=== PATIENT | female | born 1950 | race Caucasian/White ===

== ENCOUNTER 2016-10-08 07:59 | Emergency (ER) | payer OTHER ==
[2016-10-08] MEDS ORDERED: DUONEB 0.5-3 MG/3 ml Neb IH ONE ×2 (08:19→08:26)
--- NOTE | 2016-10-08 08:25 | ERPHSYRPT ---
- History of Present Illness Time Seen by Provider: 10/08/16 08:14 Source: patient Exam Limitations: no limitations Patient Subjective Stated Complaint: cough productive , wheezes,sob for 2 days , co pain to right side of chest when coughs, started advair 2-3 days ago, Triage Nursing Assessment: pt alert , sob with excertion, skin w/d, wheezes heard, no edema noted. Physician History: 66-year-old white female arrives with complaint of shortness of breath coughing pain and right-sided chest with deep breathing symptoms for 2 days no fevers no vomiting no diarrhea. Past medical history includes COPD, pneumonia, arthritis. Past surgical history includes , appendectomy, hand surgery. Social history positive for tobacco use Timing/Duration: yesterday Activities at Onset: none Severity of Dyspnea-Max: moderate Severity of Dyspnea-Current: moderate Possible Cause: occasional episodes Modifying Factors: Improves With: nothing Associated Symptoms: cough, chest pain/discomfort (pain with deep breathing and coughing), wheezing, painful breathing (past), productive cough, No intermittent , No anxiety, No edema, No fever, No insomnia, No loss of appetite, No lightheadedness, No weakness, No ankle swelling, No chills, No hemoptysis, No calf pain, No dizziness, No heaviness, No heart racing, No lightheadedness, No leg swelling, No muscle spasms feet, No muscle spasms hands, No sweating, No tightness, No tingling face, No tingling hands International travel in last 2 weeks: No Allergies/Adverse Reactions: No Known Drug Allergies Allergy (Unverified 10/08/16 08:11) Home Medications: Albuterol 2.5 mg/3 ml Neb [Proventil 2.5 mg/3 ml Neb] 2.5 mg QID 10/08/16 [History] Albuterol Sulfate [Proair Hfa] 8.5 gm DAILY 10/08/16 [History] Hx Influenza Vaccination/Date Given: Yes Hx Pneumococcal Vaccination/Date Given: No Immunizations Up to Date: Yes - Review of Systems Constitutional: No Fever, No Chills Eyes: No Symptoms Ears, Nose, & Throat: No Symptoms Respiratory: Cough, Dyspnea, Wheezing Cardiac: Chest Pain (pain with deep breathing right side pain with cough) Abdominal/Gastrointestinal: No Abdominal Pain, No Nausea, No Vomiting, No Diarrhea Genitourinary Symptoms: No Dysuria Musculoskeletal: No Back Pain, No Neck Pain Skin: No Rash Neurological: No Dizziness, No Focal Weakness, No Sensory Changes Psychological: No Symptoms Endocrine: No Symptoms All Other Systems: Reviewed and Negative - Past Medical History Neurological History: No Pertinent History Cardiac History: No Pertinent History Respiratory History: COPD, Pneumonia Endocrine Medical History: No Pertinent History Musculoskeletal History: Arthritis - Past Surgical History Past Surgical History: Yes Gastrointestinal: Appendectomy Musculoskeletal: Orthopedic Surgery Female Surgical History: Section Other Surgical History: hand surg - Social History Smoking Status: Current every day smoker Exposure to second hand smoke: Yes Drug Use: none Patient Lives Alone: No - Female History Hx Last Menstrual Period: post - Nursing Vital Signs Nursing Vital Signs: Initial Vital Signs Temperature 98.0 F Pulse Rate 108 Respiratory Rate 16 Blood Pressure [] 152/71 Pain Intensity 7 - Physical Exam General Appearance: mild distress Eye Exam: PERRL/EOMI Ears, Nose, Throat Exam: hearing grossly normal, normal ENT inspection, normal pharynx, No abnormal TM (R), No abnormal TM (L), No sinus pain/drainage, No hearing decreased, No nasal congestion, No pharyngeal erythema, No tonsillar exudate, No tonsillar swelling Neck Exam: normal inspection, non-tender, supple Respiratory Exam: lungs clear, airway intact, wheezing, No respiratory distress Cardiovascular/Chest Exam: normal heart sounds, tachycardia Abdominal/Gastrointestinal Exam: soft, No tenderness, No distention, No mass Extremity Exam: non-tender, normal range of motion, normal inspection, no calf tenderness, no pedal edema Peripheral Pulses Exam: dorsalis-pedis (R): 2+, dorsalis-pedis (L): 2+ Neurologic Exam: alert, oriented x 3, cooperative, certified pharmacist assistant II-XII nml as tested, sensation nml, No motor deficits Skin Exam: normal color, warm, No dry SpO2 Interpretation: normal (95%) SpO2: 95 Oxygen Delivery: Room Air - Course Nursing assessment & vital signs reviewed: Yes EKG Interpreted by Me: RATE (100 bpm), Sinus Rhythm, NORMAL AXIS, Other (EKG: Sinus rhythm 100 bpm normal axis no acute ST or T wave changes noted) - Radiology Exams Chest X-ray Interpretation: Discussed w/ radiologist, Other (chest x-ray: Right infrahilar infiltrate/atelectasis correlate clinically) Ordered Tests: Active Orders 24 hr Category Date Time Status Fire Marshal STAT Care 10/08/16 08:19 Active EKG-ER Only STAT Care 10/08/16 08:19 Active IV Insertion STAT Care 10/08/16 08:19 Active CHEST 1 VIEW (PORTABLE) Stat Exams 10/08/16 08:20 Completed CBC W DIFF Stat Lab 10/08/16 08:20 Completed CMP Stat Lab 10/08/16 08:20 Completed D-DIMER QUANTITATION Stat Lab 10/08/16 08:20 Completed TROPONIN Stat Lab 10/08/16 08:20 Completed Respiratory Nebulizer STAT RT 10/08/16 08:21 Completed Medication Summary Discontinued Medications Generic Name Dose Route Start Last Admin Trade Name Freq PRN Reason Stop Dose Admin Albuterol/Ipratropium 3 ml 10/08/16 08:19 10/08/16 08:27 Duoneb 0.5-3 Mg/3 Ml Neb IH 10/08/16 08:20 3 ml STAT ONE Administration Albuterol/Ipratropium Confirm 10/08/16 08:26 Duoneb 0.5-3 Mg/3 Ml Neb Administered 10/08/16 08:27 Dose 3 ml IH .STK-MED ONE Lab/Rad Data: Laboratory Result Diagrams 10/08/16 08:20 10/08/16 08:20 Laboratory Results 10/08/16 10/08/16 10/08/16 Range/Units 08:20 08:20 08:20 WBC 16.5 H (4.0-10.5) K/mm3 RBC 4.22 (4.1-5.4) M/mm3 Hgb 12.6 (12.0-16.0) gm/dl Hct 39.9 (35-47) % MCV 94.5 (78-100) fl MCH 29.9 (26-32) pg MCHC 31.6 L (32-36) g/dl RDW 13.5 (11.5-14.0) % Plt Count 345 (150-450) K/mm3 MPV 10.3 H (6-9.5) fl Gran % 83.2 H (36.0-66.0) % Lymphocytes % 9.0 L (24.0-44.0) % Monocytes % 7.1 (0.0-12.0) % Eosinophils % 0.4 (0.00-5.0) % Basophils % 0.3 (0.0-0.4) % Basophils # 0.05 (0-0.4) D-Dimer 0.484 (0.00-0.49) mg/L Sodium 140 (136-145) mEq/L Potassium 4.3 (3.5-5.1) mEq/L Chloride 102 (98-107) mEq/L Carbon Dioxide 29.1 (21-32) mEq/L Anion Gap 13.6 (5-15) MEQ/L BUN 12 (9-20) mg/dL Creatinine 0.77 (0.55-1.30) mg/dl Estimated GFR > 60 ML/MIN Glucose 97 (70-110) MG/DL Calcium 9.4 (8.5-10.1) mg/dL Total Bilirubin 0.4 (0.2-1.0) mg/dL AST 15 (15-37) U/L ALT 15 (12-78) U/L Alkaline Phosphatase 95 (46-116) U/L Troponin I < 0.017 (0.000-0.056) ng/ml Serum Total Protein 7.9 (6.4-8.2) gm/dL Albumin 3.8 (3.4-5.0) g/dL - Progress Progress: improved Air Movement: fair Progress Note: 10/08/16 09:41 Patient's lungs are clear after DuoNeb treatment she is feeling better. She does state that she has inhalers at home and a nebulizer she is encouraged to use these. Chest x-ray shows a subtle asymmetric right infrahilar infiltrate versus atelectasis without consolidation or a large effusion. Patient states she will not take steroids and although I offered to write them she states she will not take them and asked me not to write for them. She does state that she feels like her symptoms are secondary to Advair she states she was told by Dr. Lopez not to take this, Will write for Zithromax Z-Gonzalo, Will have patient continue her inhalers at home, Have patient follow-up with Dr. Lopez, Patient's EKG d-dimer troponin CMP within normal limits white count is mildly elevated. - Departure Time of Disposition: 09:42 Departure Disposition: Home Clinical Impression: COPD (chronic obstructive pulmonary disease) Qualifiers: COPD type: COPD with acute exacerbation Qualified Code(s): J44.1 - Chronic obstructive pulmonary disease with (acute) exacerbation Pneumonia Qualifiers: Pneumonia type: due to unspecified organism Laterality: right Lung location: unspecified part of lung Qualified Code(s): J18.9 - Pneumonia, unspecified organism Condition: Fair Critical Care Time: No Instructions: Chronic Obstructive Pulmonary Disease Additional Instructions: Return home. Plenty of fluids. Zithromax Z-GONZALO as directed. Use your inhalers as directed. Follow-up with Dr. Lopez or Dr. raven Soto. Stop smoking. Return for acute distress or for severe symptoms. Prescriptions: Azithromycin 250 mg [Zithromax 250 MG TABLET] 0 mg PO ZPACK #6 tablet
[2016-10-08 08:41] LABS: BASOPHIL % 0.3 % (0.0-0.4); Eosinophil % 0.4 % (0.00-5.0); Granulocytes % 83.2 % (36.0-66.0); Mean Cell Volume 94.5 fl (78-100); Mean Corpuscular Hemoglobin 29.9 pg (26-32); Mean Platelet Volume 10.3 fl (6-9.5); Monocytes % 7.1 % (0.0-12.0); Platelet Count 345 K/mm3 (150-450); Red Blood Count 4.22 M/mm3 (4.1-5.4); Red Cell Distribution Width 13.5 % (11.5-14.0); White Blood Count 16.5 K/mm3 (4.0-10.5)
--- NOTE | 2016-10-08 08:47 | XRAY ---
Indication: Short of breath. Comparison: None Portable chest demonstrates subtle asymmetric right infrahilar infiltrate versus atelectasis without consolidation or large effusion. A few calcified granulomas. Heart is not enlarged. Bony thorax intact. Impression: Right infrahilar infiltrate/atelectasis. Correlate clinically.
[2016-10-08 08:53] LABS: ALBUMIN 3.8 g/dL (3.4-5.0); ALKALINE PHOSPHATASE 95 U/L (46-116); ANION GAP 13.6 MEQ/L (5-15); BILIRUBIN,TOTAL 0.4 mg/dL (0.2-1.0); BLOOD UREA NITROGEN 12 mg/dL (9-20); CHLORIDE 102 mEq/L (98-107); Carbon Dioxide 29.1 mEq/L (21-32); Glucose 97 MG/DL (70-110); Potassium 4.3 mEq/L (3.5-5.1); SGOT/AST 15 U/L (15-37); SGPT/ALT 15 U/L (12-78); SODIUM 140 mEq/L (136-145); TROPONIN < 0.017 ng/ml (0.000-0.056); Total Protein 7.9 gm/dL (6.4-8.2)
[2016-10-08 09:52] VITALS: BP 135/49; PULSE 75; O2SAT 94
== END 2016-10-08 09:51 | disposition home or self-care (01) ==
LOC: ED 07:59
DX: J44.1 Chronic obstructive pulmonary disease with (acute) exacerbation (principal); J18.9 Pneumonia, unspecified organism; R06.02 Shortness of breath; R05 Cough; R06.00 Dyspnea, unspecified; R06.2 Wheezing; R07.89 Other chest pain; Z87.01 Personal history of pneumonia (recurrent)
CPT/HCPCS: 36000; 36415; 71010; 80053; 84484; 85025; 85379; 93005; 93041; 94640; 99283; 99284

== ENCOUNTER 2017-03-08 08:15 | Observation (INO) | payer OTHER ==
[2017-03-08] MEDS ORDERED: DUONEB 0.5-3 MG/3 ml Neb IH ONE ×2 (08:41→09:06)
--- NOTE | 2017-03-08 08:48 | ERPHSYRPT ---
- History of Present Illness Time Seen by Provider: 03/08/17 08:39 Source: patient Exam Limitations: no limitations Patient Subjective Stated Complaint: PT STATES SHE HAS BEEN SOB FOR THE PAST 4 DAYS. WORSE LAST PM. Triage Nursing Assessment: PT, PINK, WARM, DRY. LUNG SOUNDS DIMINISHED IN RIGHT UPPER LOBE, WHEEZING NOTED THROUGHOUT. NON PRODUCTIVE COUGH. Physician History: 67-year-old white female with history of COPD pneumonia and arthritis Patient arrives with complaint of cough which is been nonproductive short of breath symptoms for 3 days she states she has had some chills and had some sweating at home Patient states she has been using her nebulizer Patient states she does not want to take steroids to make her swell up and make her nauseous she states that she has refused them in the past and continues to refuse these making this clear. Past medical history includes COPD, pneumonia, arthritis Past surgical history includes , appendectomy, hand surgery Social history positive for tobacco use Timing/Duration: day(s) (4 days) Activities at Onset: none Severity of Dyspnea-Max: moderate Severity of Dyspnea-Current: moderate Possible Cause: frequent episodes Modifying Factors: Improves With: nothing Associated Symptoms: constant, cough, wheezing, chills, No chest pain/discomfort , No edema, No fever, No insomnia, No loss of appetite, No lightheadedness, No weakness, No ankle swelling, No hemoptysis, No calf pain, No dizziness, No heaviness, No heart racing, No lightheadedness, No leg swelling, No muscle spasms feet, No muscle spasms hands, No painful breathing, No productive cough, No sweating, No tightness, No tingling face, No tingling hands International travel in last 2 weeks: No Allergies/Adverse Reactions: No Known Drug Allergies Allergy (Unverified 03/08/17 08:22) Home Medications: Albuterol 2.5 mg/3 ml Neb [Proventil 2.5 mg/3 ml Neb] 2.5 mg QID 10/08/16 [History] Albuterol Sulfate [Proair Hfa] 8.5 gm DAILY 10/08/16 [History] Hx Tetanus, Diphtheria Vaccination/Date Given: Yes (UNKNOWN) Hx Influenza Vaccination/Date Given: Yes Hx Pneumococcal Vaccination/Date Given: No Immunizations Up to Date: Yes - Review of Systems Constitutional: Chills, No Fever, No Fatigue, No Lethargy, No Malaise, No Night Sweats, No Weakness, No Weight Loss Eyes: No Symptoms Ears, Nose, & Throat: No Symptoms, No Ear Pain, No Ear Discharge, No Hearing Changes, No Tinnitus, No Nose Pain, No Nose Congestion, No Nose Discharge, No Sinus Drainage, No Epistaxis, No Mouth Pain, No Mouth Swelling, No Loose Teeth, No Throat Pain, No Throat Swelling, No Painful Swallowing, No Snoring, No Stridor Respiratory: Cough, Dyspnea, Dyspnea on Exertion ([place]), Wheezing, No Cyanosis, No Stridor Cardiac: No Chest Pain, No Edema, No Syncope Abdominal/Gastrointestinal: No Abdominal Pain, No Nausea, No Vomiting, No Diarrhea Genitourinary Symptoms: No Dysuria Musculoskeletal: No Back Pain, No Neck Pain Skin: No Rash Neurological: No Dizziness, No Focal Weakness, No Sensory Changes Psychological: No Symptoms Endocrine: No Symptoms All Other Systems: Reviewed and Negative - Past Medical History Pertinent Past Medical History: Yes Neurological History: No Pertinent History Cardiac History: No Pertinent History Respiratory History: COPD, Pneumonia Endocrine Medical History: No Pertinent History Musculoskeletal History: Arthritis - Past Surgical History Past Surgical History: Yes Gastrointestinal: Appendectomy Musculoskeletal: Orthopedic Surgery Female Surgical History: Section Other Surgical History: hand surg - Social History Smoking Status: Current every day smoker How long have you smoked: 55 Exposure to second hand smoke: No Drug Use: none Patient Lives Alone: No - Nursing Vital Signs Nursing Vital Signs: Initial Vital Signs Temperature 98.6 F 03/08/17 08:16 Pulse Rate 115 H 03/08/17 08:16 Respiratory Rate 26 H 03/08/17 08:16 Blood Pressure 130/72 03/08/17 08:16 O2 Sat by Pulse Oximetry 92 L 03/08/17 08:16 Pain Scale Pain Intensity 5 - Physical Exam General Appearance: other (well-developed well-nourished white female, alert oriented 3, cooperative to examination, begins to cough when asked to take a deep breath) Eye Exam: PERRL/EOMI, eyes nml inspection, other (fundi are unremarkable) Ears, Nose, Throat Exam: hearing grossly normal, normal ENT inspection, normal pharynx, No abnormal TM (R), No abnormal TM (L), No sinus pain/drainage, No hearing decreased, No nasal congestion, No pharyngeal erythema, No tonsillar exudate Neck Exam: normal inspection, non-tender, supple, full range of motion Respiratory Exam: wheezing (bilateral wheezes, breath sounds equal bilaterally) Cardiovascular/Chest Exam: normal heart sounds, regular rate/rhythm, tachycardia (heart regular but tachycardic) Abdominal/Gastrointestinal Exam: soft, No tenderness, No distention, No mass Extremity Exam: non-tender, normal range of motion, normal inspection, no calf tenderness, no pedal edema Peripheral Pulses Exam: dorsalis-pedis (R): 2+, dorsalis-pedis (L): 2+ Neurologic Exam: alert, oriented x 3, cooperative, wall taper II-XII nml as tested, sensation nml, No motor deficits Skin Exam: normal color, warm, No dry SpO2 Interpretation: normal (92%) SpO2: 92 Oxygen Delivery: Room Air - Course Nursing assessment & vital signs reviewed: Yes EKG Interpreted by Me: RATE (EKG, sinus tachycardia, 1 10 bpm, normal axis, no acute ST or T wave changes noted, compared to October 08, 2016) - Radiology Exams Chest X-ray Interpretation: Discussed w/ radiologist (chest x-ray:Hyperinflated with Right Mid to lower lung alveolar opacity remainder of heart-lung and bony thorax unremarkable.) Ordered Tests: Active Orders 24 hr Category Date Time Status Dining Room Hostess STAT Care 03/08/17 08:39 Active Clean Catch Urine Specimen STAT Care 03/08/17 08:39 Active EKG-ER Only STAT Care 03/08/17 08:39 Active IV Insertion STAT Care 03/08/17 08:48 Active Oxygen-ED Only NASAL CANNULA 2 lpm Care 03/08/17 08:49 Active Pulse Oximetry (ED) STAT Care 03/08/17 08:39 Active Saline Lock STAT Care 03/08/17 08:39 Active CHEST 1 VIEW (PORTABLE) Stat Exams 03/08/17 08:41 Completed BLOOD CULTURE Stat Lab 03/08/17 09:05 Received CBC W DIFF Stat Lab 03/08/17 08:40 Completed CMP Stat Lab 03/08/17 08:40 Completed CULTURE,URINE Stat Lab 03/08/17 08:39 Ordered Lactic Acid Stat Lab 03/08/17 09:15 Completed PROTIME WITH INR Stat Lab 03/08/17 08:40 Completed PTT Stat Lab 03/08/17 08:40 Completed UA W/ MICROSCOPIC Stat Lab 03/08/17 09:02 Completed VENOUS BLOOD GAS Stat Lab 03/08/17 09:15 Completed Respiratory Nebulizer STAT RT 03/08/17 08:41 Active Medication Summary Generic Name Dose Route Start Last Admin Trade Name Yeyo PRN Reason Stop Dose Admin Ceftriaxone Sodium/Dextrose 1 g in 50 mls @ 100 mls/hr 03/08/17 09:11 09:17 Rocephin 1 Gm-D5w 50 Ml Bag IV 03/08/17 09:40 100 mls/hr STAT STA Administration Discontinued Medications Generic Name Dose Route Start Last Admin Trade Name Freq PRN Reason Stop Dose Admin Albuterol/Ipratropium 3 ml 03/08/17 08:41 03/08/17 09:15 Duoneb 0.5-3 Mg/3 Ml Neb IH 03/08/17 08:42 3 ml STAT ONE Administration Albuterol/Ipratropium Confirm 03/08/17 09:06 Duoneb 0.5-3 Mg/3 Ml Neb Administered 03/08/17 09:07 Dose 3 ml IH .STK-MED ONE Budesonide 0.5 mg 03/08/17 09:15 03/08/17 09:19 Pulmicort Nebule IH 03/08/17 09:16 0.5 mg STAT ONE Administration Ceftriaxone Sodium/Dextrose Confirm 03/08/17 09:16 Rocephin 1 Gm-D5w 50 Ml Bag Administered 03/08/17 09:17 Dose 1 g in 50 mls @ ud IV .STK-MED ONE Lab/Rad Data: Laboratory Result Diagrams 03/08/17 08:40 03/08/17 08:40 Laboratory Results 03/08/17 03/08/17 03/08/17 Range/Units 09:15 09:15 09:02 WBC (4.0-10.5) K/mm3 RBC (4.1-5.4) M/mm3 Hgb (12.0-16.0) gm/dl Hct (35-47) % MCV (78-100) fl MCH (26-32) pg MCHC (32-36) g/dl RDW (11.5-14.0) % Plt Count (150-450) K/mm3 MPV (6-9.5) fl Gran % (36.0-66.0) % Lymphocytes % (24.0-44.0) % Monocytes % (0.0-12.0) % Eosinophils % (0.00-5.0) % Basophils % (0.0-0.4) % Basophils # (0-0.4) INR (0.8-3.0) APTT (25.3-37.0) SECONDS VBG pH 7.41 (7.32-7.42) VBG pCO2 at Pat Temp 45 (42-55) mm/Hg VBG pO2 at Pat Temp 39 (25-40) mm/Hg VBG HCO3 28.5 H (22-28) meq/L VBG O2 Sat (Vee) 81.2 L (95-100) VBG Base Excess 3.2 H (-2.0-2.0) VBG Hemoglobin 13.5 VBG Carboxyhemoglobin 4.8 (0.0-6.9) % T HGB POC Potassium 4.2 (3.5-5.1) Sodium (136-145) mEq/L Potassium (3.5-5.1) mEq/L Chloride (98-107) mEq/L Carbon Dioxide (21-32) mEq/L Anion Gap (5-15) MEQ/L BUN (9-20) mg/dL Creatinine (0.55-1.30) mg/dl Estimated GFR ML/MIN Glucose (70-110) MG/DL Lactic Acid 0.8 (0.4-2.0) Calcium (8.5-10.1) mg/dL Total Bilirubin (0.2-1.0) mg/dL AST (15-37) U/L ALT (12-78) U/L Alkaline Phosphatase (46-116) U/L Serum Total Protein (6.4-8.2) gm/dL Albumin (3.4-5.0) g/dL Ur Collection Type CCMS Urine Color DARK YELLOW (YELLOW) Urine Appearance HAZY (CLEAR) Urine pH 5.0 (5-6) Ur Specific Myton 1.020 (1.005-1.025) Urine Protein 30 (Negative) Urine Ketones TRACE (NEGATIVE) Urine Blood 250 (0-5) Francis/ul Urine Nitrite NEGATIVE (NEGATIVE) Urine Bilirubin SMALL (NEGATIVE) Urine Urobilinogen 1 (0-1) mg/dL Ur Leukocyte Esterase NEGATIVE (NEGATIVE) Urine Microscopic RBC 2-5 (0-2) /HPF Urine Microscopic WBC 0-2 (0-5) /HPF Ur Epithelial Cells MANY (FEW) /HPF Urine Bacteria MODERATE (NEGATIVE) /HPF Urine Mucus MANY (NEGATIVE) /HPF Urine Glucose NEGATIVE (NEGATIVE) mg/dL Specimen Received 03/08/2017 0850 03/08/17 03/08/17 03/08/17 Range/Units 08:40 08:40 08:40 WBC 12.6 H (4.0-10.5) K/mm3 RBC 4.20 (4.1-5.4) M/mm3 Hgb 12.7 (12.0-16.0) gm/dl Hct 39.8 (35-47) % MCV 94.8 (78-100) fl MCH 30.2 (26-32) pg MCHC 31.9 L (32-36) g/dl RDW 13.8 (11.5-14.0) % Plt Count 345 (150-450) K/mm3 MPV 10.5 H (6-9.5) fl Gran % 76.5 H (36.0-66.0) % Lymphocytes % 13.7 L (24.0-44.0) % Monocytes % 8.8 (0.0-12.0) % Eosinophils % 0.7 (0.00-5.0) % Basophils % 0.3 (0.0-0.4) % Basophils # 0.04 (0-0.4) INR 1.11 (0.8-3.0) APTT 38.6 H (25.3-37.0) SECONDS VBG pH (7.32-7.42) VBG pCO2 at Pat Temp (42-55) mm/Hg VBG pO2 at Pat Temp (25-40) mm/Hg VBG HCO3 (22-28) meq/L VBG O2 Sat (Vee) (95-100) VBG Base Excess (-2.0-2.0) VBG Hemoglobin VBG Carboxyhemoglobin (0.0-6.9) % T HGB POC Potassium (3.5-5.1) Sodium 138 (136-145) mEq/L Potassium 4.0 (3.5-5.1) mEq/L Chloride 101 (98-107) mEq/L Carbon Dioxide 27.7 (21-32) mEq/L Anion Gap 13.6 (5-15) MEQ/L BUN 10 (9-20) mg/dL Creatinine 0.81 (0.55-1.30) mg/dl Estimated GFR > 60 ML/MIN Glucose 105 (70-110) MG/DL Lactic Acid (0.4-2.0) Calcium 9.6 (8.5-10.1) mg/dL Total Bilirubin 0.50 (0.2-1.0) mg/dL AST 19 (15-37) U/L ALT 27 (12-78) U/L Alkaline Phosphatase 119 H (46-116) U/L Serum Total Protein 7.8 (6.4-8.2) gm/dL Albumin 3.3 L (3.4-5.0) g/dL Ur Collection Type Urine Color (YELLOW) Urine Appearance (CLEAR) Urine pH (5-6) Ur Specific Myton (1.005-1.025) Urine Protein (Negative) Urine Ketones (NEGATIVE) Urine Blood (0-5) Francis/ul Urine Nitrite (NEGATIVE) Urine Bilirubin (NEGATIVE) Urine Urobilinogen (0-1) mg/dL Ur Leukocyte Esterase (NEGATIVE) Urine Microscopic RBC (0-2) /HPF Urine Microscopic WBC (0-5) /HPF Ur Epithelial Cells (FEW) /HPF Urine Bacteria (NEGATIVE) /HPF Urine Mucus (NEGATIVE) /HPF Urine Glucose (NEGATIVE) mg/dL Specimen Received - Progress Progress: improved Air Movement: fair Progress Note: 03/08/17 09:36 Patient was COPD with exacerbation, also with a right-sided pneumonia. Case is discussed with Dr. Anaya. Will place on observation. Will provide antibiotics and DuoNeb treatments. Patient did refuse IV steroids Dr. Anaya states patient can be put on Pulmicort. - Departure Time of Disposition: 09:37 Departure Disposition: Observation Clinical Impression: Shortness of breath, COPD exacerbation Pneumonia Qualifiers: Pneumonia type: due to unspecified organism Laterality: right Lung location: unspecified part of lung Qualified Code(s): J18.9 - Pneumonia, unspecified organism Condition: Fair Critical Care Time: No Referrals: JEREMIAS ANAYA MD [Primary Care Provider] - Instructions: Chronic Obstructive Pulmonary Disease
[2017-03-08 09:01] LABS: BASOPHIL % 0.3 % (0.0-0.4); Eosinophil % 0.7 % (0.00-5.0); Granulocytes % 76.5 % (36.0-66.0); Lymphocytes % 13.7 % (24.0-44.0); Mean Cell Volume 94.8 fl (78-100); Mean Corpuscular Hemoglobin 30.2 pg (26-32); Mean Platelet Volume 10.5 fl (6-9.5); Monocytes % 8.8 % (0.0-12.0); Platelet Count 345 K/mm3 (150-450); Red Cell Distribution Width 13.8 % (11.5-14.0); White Blood Count 12.6 K/mm3 (4.0-10.5)
--- NOTE | 2017-03-08 09:05 | XRAY ---
Indication: Short of breath. Cough. Comparison: October 08, 2016. Portable chest hyperinflated with now right mid to lower lung interstitial alveolar opacity. Remaining heart, lungs, and bony thorax unremarkable.
[2017-03-08] MEDS ORDERED: ROCEPHIN 1 Gm-D5w 50 ml Bag** 1 G/50 ML IVPB IV STA (09:11)
[2017-03-08] MEDS ORDERED: PULMICORT NEBULE IH ONE (09:15)
[2017-03-08] MEDS ORDERED: ROCEPHIN 1 Gm-D5w 50 ml Bag** 1 G/50 ML IVPB IV ONE (09:16)
[2017-03-08 09:18] LABS: INR 1.11 (0.8-3.0); PROTIME 12.6 SECONDS (9.95-12.35)
[2017-03-08 09:20] LABS: PTT 38.6 SECONDS (25.3-37.0)
[2017-03-08 09:27] LABS: ALBUMIN 3.3 g/dL (3.4-5.0); ALKALINE PHOSPHATASE 119 U/L (46-116); ANION GAP 13.6 MEQ/L (5-15); BLOOD UREA NITROGEN 10 mg/dL (9-20); CHLORIDE 101 mEq/L (98-107); Carbon Dioxide 27.7 mEq/L (21-32); Glucose 105 MG/DL (70-110); SGOT/AST 19 U/L (15-37); SGPT/ALT 27 U/L (12-78); SODIUM 138 mEq/L (136-145); Total Protein 7.8 gm/dL (6.4-8.2)
[2017-03-08 09:30] LABS: VBG BASE EXCESS 3.2 (-2.0-2.0); VBG CARBOXYHEMOGLOBIN 4.8 % T HGB (0.0-6.9); VBG HCO3- 28.5 meq/L (22-28); VBG HEMOGLOBIN 13.5; VBG O2 SATURATION 81.2 (95-100); VBG POTASSIUM 4.2 (3.5-5.1); VBG pH 7.41 (7.32-7.42)
[2017-03-08 09:31] LABS: Collection Type CCMS; Leukocyte Esterase NEGATIVE (NEGATIVE)
[2017-03-08 09:32] LABS: Bacteria MODERATE /HPF (NEGATIVE); Bilirubin SMALL (NEGATIVE); Blood 250 Ery/ul (0-5); COMPLETE URINE MICROSCOPIC? YES; Epithelial Cells MANY /HPF (FEW); Glucose NEGATIVE (NEGATIVE); Mucus MANY /HPF (NEGATIVE); WBC 0-2 /HPF (0-5)
[2017-03-08] MEDS ORDERED: DUONEB 0.5-3 MG/3 ml Neb IH PRN (10:19)
[2017-03-08] MEDS: DUONEB 0.5-3 MG/3 ml Neb IH SCH ×4 (11:38→22:58)
[2017-03-08] MEDS: MORPHINE SULFATE 2 MG INJ IV PRN (12:29)
[2017-03-08] MEDS: Sodium Chloride 0.9% 1000 ML 1,000 ML IV SCH (12:30)
[2017-03-08] MEDS: Zithromax 500 MG/ 250 ML NaCl Premix 500 MG/250 ML IVPB IV SCH (12:34)
[2017-03-08] MEDS: PULMICORT 0.5 MG/2 ML RESPULES IH SCH ×2 (18:38)
--- NOTE | 2017-03-08 21:33 | PCM.HP ---
History of Present Illness - Chief Complaint Chief Complaint: COPD. Pneumonia Date: 03/08/17 History of Present Illness: 65-year-old white female with history of coronary artery disease, COPD, bronchitis, congestive heart failure, hyperlipidemia, she arrives with complaint of feeling short of breath for approximately 2 weeks worse past 3 days and increasingly worse since last night She summoned the medics this morning they gave her a DuoNeb treatment She denies any chest pain she has no fever she is coughing productive of a clear to yellow sputum - Review of Systems Constitutional: No Fever, No Chills Eyes: No Symptoms Ears, Nose, & Throat: No Symptoms Respiratory: Cough, Orthopnea, Short Of Breath, Wheezing Cardiac: No Chest Pain, No Edema, No Syncope Abdominal/Gastrointestinal: No Abdominal Pain, No Nausea, No Vomiting, No Diarrhea Genitourinary Symptoms: No Dysuria Musculoskeletal: No Back Pain, No Neck Pain Skin: No Rash Neurological: No Dizziness, No Focal Weakness, No Sensory Changes Psychological: No Symptoms Endocrine: No Symptoms Hematologic/Lymphatic: No Symptoms Immunological/Allergic: No Symptoms Medications & Allergies Home Medications: Home Medication List Albuterol 2.5 mg/3 ml Neb [Proventil 2.5 mg/3 ml Neb] 2.5 mg QID 10/08/16 [History Confirmed 03/08/17] Albuterol Sulfate [Proair Hfa] 8.5 gm DAILY 10/08/16 [History Confirmed 03/08/17 ] Allergies/Adverse Reactions: Allergies Allergy/AdvReac Type Severity Reaction Status Date / Time No Known Drug Allergies Allergy Unverified 03/08/17 08:22 - Past Medical History Past Medical History: Yes Neurological History: No Pertinent History Cardiac History: No Pertinent History Respiratory History: COPD, Pneumonia Endocrine Medical History: No Pertinent History Musculoskelatal History: Arthritis GI Medical History: Hernia History: No Pertinent History Pyscho-Social History: Panic Disorder Reproductive Disorders: No Pertinent History - Female History Are you now?: No - Past Surgical History Past Surgical History: Yes Neuro Surgical History: No Pertinent History Cardiac History: No Pertinent History Respiratory Surgery: No Pertinent History GI Surgical History: Appendectomy Musculskeletal Surgical Hx: Orthopedic Surgery Female Surgical History: Section Other Surgical History: hand surg - Social History Smoking Status: Current every day smoker How long have you smoked: 55 Exposure to second hand smoke: No Alcohol: Occasionally Drug Use: none - Physical Exam Vital Signs: Vital Signs - 24 hr Temp Pulse Resp BP Pulse Ox 03/08/17 20:00 98.3 F 97 H 21 125/76 90 L 03/08/17 18:38 91 H 21 94 L 03/08/17 18:00 18 03/08/17 16:00 98.2 F 105 H 18 154/70 92 L 03/08/17 15:09 106 H 20 98 03/08/17 14:24 20 03/08/17 11:39 98 H 20 96 03/08/17 10:51 98.5 F 105 H 22 145/66 91 L 03/08/17 10:50 98.5 F 105 H 22 145/66 96 03/08/17 10:24 22 03/08/17 10:19 98.5 F 105 H 145/66 03/08/17 10:04 100 H 22 137/75 96 03/08/17 09:37 92 L 03/08/17 09:07 104 H 24 138/87 96 03/08/17 08:49 95 03/08/17 08:41 106 H 22 96 03/08/17 08:16 98.6 F 115 H 26 H 130/72 92 L Oxygen-Last 24 hours O2 Percentage 2 Liters = 28% O2 Percentage 2 Liters = 28% O2 Percentage 4 Liters = 36% O2 Percentage 2 Liters = 28% O2 Percentage 2 Liters = 28% O2 Percentage 2 Liters = 28% O2 Percentage 2 Liters = 28% General Appearance: no apparent distress, alert Neurologic Exam: alert, oriented x 3, cooperative, normal mood/affect, nml cerebellar function, nml station & gait, sensation nml, No motor deficits Eye Exam: PERRL/EOMI, eyes nml inspection Ears, Nose, Throat Exam: normal ENT inspection, TMs normal, pharynx normal, moist mucous membranes Neck Exam: normal inspection, non-tender, supple, full range of motion Respiratory Exam: respiratory distress, crackles/rales, rhonchi, wheezing Cardiovascular Exam: regular rate/rhythm, normal heart sounds, normal peripheral pulses Gastrointestinal/Abdomen Exam: soft, normal bowel sounds, No tenderness, No mass Back Exam: normal inspection, normal range of motion, No CVA tenderness, No vertebral tenderness Extremity Exam: normal inspection, normal range of motion, pelvis stable Skin Exam: normal color, warm, dry, No rash Lymphatic Exam: No adenopathy Results - Other Procedures and Tests Respiratory Therapy 03/08/17 11:00 Respiratory Nebulizer Q4H Respiratory Nebulizer UD 03/08/17 19:00 Respiratory Nebulizer BID Assessment/Plan (1) Pneumonia Current Visit: Yes Status: Acute Qualifiers: Pneumonia type: due to unspecified organism Laterality: right Lung location: unspecified part of lung Qualified Code(s): J18.9 - Pneumonia, unspecified organism Assessment & Plan: Chief Complaint Diagnosis COPD. Pneumonia Allergies Allergy/AdvReac Type Severity Reaction Status Date / Time No Known Drug Allergies Allergy Unverified 03/08/17 08:22 Vital Signs (Last 24 hours) Temp Pulse Resp BP Pulse Ox 03/08/17 20:00 98.3 F 97 H 21 125/76 90 L 03/08/17 18:38 91 H 21 94 L 03/08/17 18:00 18 03/08/17 16:00 98.2 F 105 H 18 154/70 92 L 03/08/17 15:09 106 H 20 98 03/08/17 14:24 20 03/08/17 11:39 98 H 20 96 03/08/17 10:51 98.5 F 105 H 22 145/66 91 L 03/08/17 10:50 98.5 F 105 H 22 145/66 96 03/08/17 10:24 22 03/08/17 10:19 98.5 F 105 H 145/66 03/08/17 10:04 100 H 22 137/75 96 03/08/17 09:37 92 L 03/08/17 09:07 104 H 24 138/87 96 03/08/17 08:49 95 03/08/17 08:41 106 H 22 96 03/08/17 08:16 98.6 F 115 H 26 H 130/72 92 L Current Medications Generic Name Dose Route Start Last Admin Trade Name Freq PRN Reason Stop Dose Admin Albuterol/Ipratropium 3 ml 03/08/17 10:19 Duoneb 0.5-3 Mg/3 Ml Neb IH 04/07/17 10:18 Q4HPRN PRN SHORTNESS OF BREATH/WHEEZING Albuterol/Ipratropium 3 ml 03/08/17 11:00 03/08/17 18:38 Duoneb 0.5-3 Mg/3 Ml Neb IH 04/07/17 10:59 3 ml Q4HRT STEFANI Administration Budesonide 0.5 mg 03/08/17 10:19 03/08/17 18:38 Pulmicort 0.5 Mg/2 Ml Respules IH 04/07/17 10:18 0.5 mg Q12HT STEFANI Administration Azithromycin 500 mg in 250 mls @ 250 mls/hr 03/08/17 10:19 03/08/17 12:34 Zithromax 500 Mg/ 250 Ml Nacl Premix IV 04/07/17 10:18 250 mls/hr Q24H10 STEFANI Administration Ceftriaxone Sodium/Dextrose 1 g in 50 mls @ 100 mls/hr 03/09/17 10:00 Rocephin 1 Gm-D5w 50 Ml Bag IV 04/08/17 09:59 Q24H10 STEFANI Sodium Chloride 1,000 mls @ 100 mls/hr 03/08/17 10:19 03/08/17 12:30 Sodium Chloride 0.9% 1000 Ml IV 04/07/17 10:18 100 mls/hr .Q10H STEFANI Administration Morphine Sulfate 1 mg 03/08/17 11:24 03/08/17 12:29 Morphine Sulfate 2 Mg Inj IV 03/13/17 11:23 1 mg Q4H PRN PRN Administration PAIN Discontinued Medications Generic Name Dose Route Start Last Admin Trade Name Freq PRN Reason Stop Dose Admin Albuterol/Ipratropium 3 ml 03/08/17 08:41 03/08/17 09:15 Duoneb 0.5-3 Mg/3 Ml Neb IH 03/08/17 08:42 3 ml STAT ONE Administration Albuterol/Ipratropium Confirm 03/08/17 09:06 Duoneb 0.5-3 Mg/3 Ml Neb Administered 03/08/17 09:07 Dose 3 ml IH .STK-MED ONE Budesonide 0.5 mg 03/08/17 09:15 03/08/17 09:19 Pulmicort Nebule IH 03/08/17 09:16 0.5 mg STAT ONE Administration Ceftriaxone Sodium/Dextrose 1 g in 50 mls @ 100 mls/hr 03/08/17 09:11 09:17 Rocephin 1 Gm-D5w 50 Ml Bag IV 03/08/17 09:40 100 mls/hr STAT STA Administration Ceftriaxone Sodium/Dextrose Confirm 03/08/17 09:16 Rocephin 1 Gm-D5w 50 Ml Bag Administered 03/08/17 09:17 Dose 1 g in 50 mls @ IV .STK-MED ONE Intake & Output (Last 24 hours) 03/06/17 03/07/17 03/08/17 03/09/17 11:59 11:59 11:59 11:59 Intake Total 860 Balance 860 Weight 70.67 kg Microbiology Results (Last 24 hours) 03/08/17 09:05 Blood - Pending 03/08/17 09:05 Blood Blood Culture - Pending 03/08/17 08:40 Blood - Pending 03/08/17 08:40 Blood Blood Culture - Pending 03/08/17 08:39 Clean Catch Midstream Urine Culture - Pending Laboratory Results (Last 24 hours) 03/08/17 03/08/17 03/08/17 09:15 09:15 09:02 WBC RBC Hgb Hct MCV MCH MCHC RDW Plt Count MPV Gran % Lymphocytes % Monocytes % Eosinophils % Basophils % Basophils # INR APTT VBG pH 7.41 VBG pCO2 at Pat Temp 45 VBG pO2 at Pat Temp 39 VBG HCO3 28.5 H VBG O2 Sat (Vee) 81.2 L VBG Base Excess 3.2 H VBG Hemoglobin 13.5 VBG Carboxyhemoglobin 4.8 POC Potassium 4.2 Sodium Potassium Chloride Carbon Dioxide Anion Gap BUN Creatinine Estimated GFR Glucose Lactic Acid 0.8 Calcium Total Bilirubin AST ALT Alkaline Phosphatase Serum Total Protein Albumin Ur Collection Type CCMS Urine Color DARK YELLOW Urine Appearance HAZY Urine pH 5.0 Ur Specific [place] 1.020 Urine Protein 30 Urine Ketones TRACE Urine Blood 250 Urine Nitrite NEGATIVE Urine Bilirubin SMALL Urine Urobilinogen 1 Ur Leukocyte Esterase NEGATIVE Urine Microscopic RBC 2-5 Urine Microscopic WBC 0-2 Ur Epithelial Cells MANY Urine Bacteria MODERATE Urine Mucus MANY Urine Glucose NEGATIVE Specimen Received 03/08/2017 0850 03/08/17 03/08/17 03/08/17 08:40 08:40 08:40 WBC 12.6 H RBC 4.20 Hgb 12.7 Hct 39.8 MCV 94.8 MCH 30.2 MCHC 31.9 L RDW 13.8 Plt Count 345 MPV 10.5 H Gran % 76.5 H Lymphocytes % 13.7 L Monocytes % 8.8 Eosinophils % 0.7 Basophils % 0.3 Basophils # 0.04 INR 1.11 APTT 38.6 H VBG pH VBG pCO2 at Pat Temp VBG pO2 at Pat Temp VBG HCO3 VBG O2 Sat (Vee) VBG Base Excess VBG Hemoglobin VBG Carboxyhemoglobin POC Potassium Sodium 138 Potassium 4.0 Chloride 101 Carbon Dioxide 27.7 Anion Gap 13.6 BUN 10 Creatinine 0.81 Estimated GFR > 60 Glucose 105 Lactic Acid Calcium 9.6 Total Bilirubin 0.50 AST 19 ALT 27 Alkaline Phosphatase 119 H Serum Total Protein 7.8 Albumin 3.3 L Ur Collection Type Urine Color Urine Appearance Urine pH Ur Specific [place] Urine Protein Urine Ketones Urine Blood Urine Nitrite Urine Bilirubin Urine Urobilinogen Ur Leukocyte Esterase Urine Microscopic RBC Urine Microscopic WBC Ur Epithelial Cells Urine Bacteria Urine Mucus Urine Glucose Specimen Received Orders (Last 24 hours) Category Date Time Status Bedrest with BRP/BSC ROUTINE Activity 03/08/17 10:19 Active Admission/Status Order ROUTINE Care 03/08/17 10:19 Active Call Admit Doctor for Orders ON ADMISSION Care 03/08/17 10:19 Active Managed Care Coordinator STAT Care 03/08/17 08:39 Completed Clean Catch Urine Specimen STAT Care 03/08/17 08:39 Completed Code Status Order ROUTINE Care 03/08/17 10:19 Active EKG-ER Only STAT Care 03/08/17 08:39 Completed IV Care Q6H Care 03/08/17 10:19 Active IV Insertion STAT Care 03/08/17 08:48 Completed Oxygen-ED Only NASAL CANNULA 2 lpm Care 03/08/17 08:49 Completed Pulse Oximetry (ED) STAT Care 03/08/17 08:39 Completed Saline Lock STAT Care 03/08/17 08:39 Completed Telemetry Q8H Care 03/08/17 10:19 Active Weight,Daily 0600 Care 03/08/17 10:19 Active Wheel Buffer/Discharge Plan ROUTINE Cons 03/08/17 11:05 Active Cardiac Diet Diet 03/08/17 Lunch Active CHEST 1 VIEW (PORTABLE) Stat Exams 03/08/17 08:41 Completed BLOOD CULTURE Stat Lab 03/08/17 09:05 Received CBC W DIFF AM.LAB Lab 03/09/17 04:00 Ordered CBC W DIFF Stat Lab 03/08/17 08:40 Completed CMP AM.LAB Lab 03/09/17 04:00 Ordered CMP Stat Lab 03/08/17 08:40 Completed CULTURE,URINE Stat Lab 03/08/17 08:39 Ordered Lactic Acid Stat Lab 03/08/17 09:15 Completed PROTIME WITH INR Stat Lab 03/08/17 08:40 Completed PTT Stat Lab 03/08/17 08:40 Completed UA W/ MICROSCOPIC Stat Lab 03/08/17 09:02 Completed VENOUS BLOOD GAS Stat Lab 03/08/17 09:15 Completed Albuterol/Ipratropium 3ml Neb* [DUONEB 0.5-3 MG/3 ml Med 03/08/17 09:06 Discontinued Neb] 3 ml IH .STK-MED ONE Albuterol/Ipratropium 3ml Neb* [DUONEB 0.5-3 MG/3 ml Med 03/08/17 10:19 Active Neb] 3 ml IH Q4HPRN PRN Albuterol/Ipratropium 3ml Neb* [DUONEB 0.5-3 MG/3 ml Med 03/08/17 11:00 Active Neb] 3 ml IH Q4HRT Albuterol/Ipratropium 3ml Neb* [DUONEB 0.5-3 MG/3 ml Med 03/08/17 08:41 Discontinued Neb] 3 ml IH STAT ONE Azithromycin 500 mg/250 ml [Zithromax 500 MG/ 250 ML Med 03/08/17 10:19 Active NaCl Premix] 500 mg in 250 ml IV Q24H10 Budesonide 0.5 mg/2 ml [Pulmicort 0.5 mg/2 ml Med 03/08/17 10:19 Active Respules] 0.5 mg IH Q12HT Budesonide [Pulmicort Nebule] Med 03/08/17 09:15 Discontinued 0.5 mg IH STAT ONE Ceftriaxone 1 GM/50 ML PREMIX* [ROCEPHIN 1 Gm-D5w 50 ml Med 03/09/17 10:00 Active Bag] 1 g in 50 ml IV Q24H10 Ceftriaxone 1 GM/50 ML PREMIX* [ROCEPHIN 1 Gm-D5w 50 ml Med 03/08/17 09:11 Discontinued Bag] 1 g in 50 ml IV STAT Ceftriaxone 1 GM/50 ML PREMIX* [ROCEPHIN 1 Gm-D5w 50 ml Med 03/08/17 09:16 Discontinued Bag] 1 g in 50 ml IV UD Morphine Sulfate 2 mg Inj Med 03/08/17 11:24 Active 1 mg IV Q4H PRN PRN NaCl 0.9% 1000 ml [Sodium Chloride 0.9% 1000 ML] 1,000 Med 03/08/17 10:19 Active ml IV 100 mls/hr Oxygen NASAL CANNULA 2 lpm RT 03/08/17 10:19 Active RT Screen per Nursing Assess ONCE RT 03/08/17 11:05 Completed Respiratory Nebulizer BID RT 03/08/17 19:00 Active Respiratory Nebulizer Q4H RT 03/08/17 11:00 Active Respiratory Nebulizer STAT RT 03/08/17 08:41 Completed Respiratory Nebulizer STAT RT 03/08/17 10:19 Completed Respiratory Nebulizer UD RT 03/08/17 11:00 Active Respiratory Therapy Consult ROUTINE RT 03/08/17 10:19 Completed Smoking Cessation Education ONCE RT 03/08/17 11:05 Completed Transfer Order Routine Transfer 03/08/17 09:43 Completed Code(s): J18.9 - PNEUMONIA, UNSPECIFIED ORGANISM (2) COPD exacerbation Current Visit: Yes Status: Acute Code(s): J44.1 - CHRONIC OBSTRUCTIVE PULMONARY DISEASE W (ACUTE) EXACERBATION
[2017-03-09] MEDS: MORPHINE SULFATE 2 MG INJ IV PRN (00:36)
[2017-03-09] MEDS: Sodium Chloride 0.9% 1000 ML 1,000 ML IV SCH ×3 (00:36→23:26)
[2017-03-09] MEDS: DUONEB 0.5-3 MG/3 ml Neb IH SCH ×6 (03:14→22:58)
[2017-03-09 05:39] LABS: BASOPHIL % 0.4 % (0.0-0.4); Granulocytes % 69.8 % (36.0-66.0); Lymphocytes % 20.2 % (24.0-44.0); Mean Cell Volume 96.4 fl (78-100); Mean Corpuscular Hemoglobin 29.7 pg (26-32); Mean Platelet Volume 10.4 fl (6-9.5); Monocytes % 8.6 % (0.0-12.0); Platelet Count 334 K/mm3 (150-450); Red Cell Distribution Width 13.7 % (11.5-14.0); White Blood Count 11.3 K/mm3 (4.0-10.5)
[2017-03-09 06:19] LABS: ALBUMIN 3.1 g/dL (3.4-5.0); ALKALINE PHOSPHATASE 108 U/L (46-116); BLOOD UREA NITROGEN 6 mg/dL (9-20); CHLORIDE 102 mEq/L (98-107); Glucose 100 MG/DL (70-110); Potassium 4.1 mEq/L (3.5-5.1); SGOT/AST 19 U/L (15-37); SGPT/ALT 27 U/L (12-78); SODIUM 140 mEq/L (136-145); Total Protein 7.5 gm/dL (6.4-8.2)
[2017-03-09] MEDS: PULMICORT 0.5 MG/2 ML RESPULES IH SCH ×2 (06:55→18:59)
[2017-03-09] MEDS: ROCEPHIN 1 Gm-D5w 50 ml Bag** 1 G/50 ML IVPB IV SCH (09:22)
[2017-03-09] MEDS: Zithromax 500 MG/ 250 ML NaCl Premix 500 MG/250 ML IVPB IV SCH (10:39)
--- NOTE | 2017-03-09 21:12 | PCM.NOTE ---
Date and Time: 03/09/172110 - Review of Systems Constitutional: No Fever, No Chills Eyes: No Symptoms Ears, Nose, & Throat: No Symptoms Respiratory: Cough, Orthopnea, Short Of Breath, Wheezing Cardiac: No Chest Pain, No Edema, No Syncope Abdominal/Gastrointestinal: No Abdominal Pain, No Nausea, No Vomiting, No Diarrhea Genitourinary Symptoms: No Dysuria Musculoskeletal: No Back Pain, No Neck Pain Skin: No Rash Neurological: No Dizziness, No Focal Weakness, No Sensory Changes Psychological: No Symptoms Endocrine: No Symptoms Hematologic/Lymphatic: No Symptoms Immunological/Allergic: No Symptoms Objective Exam General Appearance: no apparent distress, alert Neurologic Exam: alert, oriented x 3, cooperative, normal mood/affect, nml cerebellar function, sensation nml, No motor deficits Skin Exam: normal color, warm, dry Eye Exam: PERRL, EOMI, eyes nml inspection Ears, Nose, Throat Exam: normal ENT inspection, pharynx normal, moist mucous membranes Neck Exam: normal inspection, non-tender, supple, full range of motion Respiratory Exam: crackles/rales, rhonchi, No respiratory distress Cardiovascular Exam: regular rate/rhythm, normal heart sounds Gastrointestinal/Abdomen Exam: soft, No tenderness, No mass Extremity Exam: normal inspection, normal range of motion Back Exam: normal inspection, normal range of motion, No CVA tenderness, No vertebral tenderness Pelvic Exam: deferred Rectal Exam: deferred OBJECTIVE DATA Vital Signs: Vital Signs - 24 hr Temp Pulse Resp BP Pulse Ox 03/09/17 20:00 98.3 F 95 H 21 122/60 95 03/09/17 18:58 95 H 21 95 03/09/17 16:00 97.9 F 97 H 18 117/60 96 03/09/17 14:28 100 H 20 94 L 03/09/17 12:00 98.1 F 98 H 18 125/55 97 03/09/17 10:20 88 18 98 03/09/17 07:11 98.2 F 93 H 18 126/61 95 03/09/17 06:56 92 H 18 94 L 03/09/17 06:00 18 03/09/17 04:00 98.9 F 105 H 17 130/66 97 03/09/17 03:14 105 H 17 97 03/09/17 02:00 28 H 03/09/17 00:00 99.4 F 97 H 28 H 126/58 95 03/08/17 22:58 97 H 28 H 95 03/08/17 22:00 21 Oxygen-Last 24 hours O2 Percentage 2 Liters = 28% O2 Percentage 2 Liters = 28% Pain Assessment - Last Documented Pain Intensity 4 Pain Scale Used 0-10 Pain Scale Intake and Output: Intake & Output 03/07/17 03/08/17 03/09/17 03/10/17 11:59 11:59 11:59 11:59 Intake Total 2813 860 Output Total 500 Balance 2813 360 Weight 70.67 kg 73.255 kg Lab Results: Lab Results-Last 24 Hours 03/09/17 03/09/17 Range/Units 05:00 05:00 WBC 11.3 H (4.0-10.5) K/mm3 RBC 3.90 L (4.1-5.4) M/mm3 Hgb 11.6 L (12.0-16.0) gm/dl Hct 37.6 (35-47) % MCV 96.4 (78-100) fl MCH 29.7 (26-32) pg MCHC 30.9 L (32-36) g/dl RDW 13.7 (11.5-14.0) % Plt Count 334 (150-450) K/mm3 MPV 10.4 H (6-9.5) fl Gran % 69.8 H (36.0-66.0) % Lymphocytes % 20.2 L (24.0-44.0) % Monocytes % 8.6 (0.0-12.0) % Eosinophils % 1.0 (0.00-5.0) % Basophils % 0.4 (0.0-0.4) % Basophils # 0.05 (0-0.4) Sodium 140 (136-145) mEq/L Potassium 4.1 (3.5-5.1) mEq/L Chloride 102 (98-107) mEq/L Carbon Dioxide 29.0 (21-32) mEq/L Anion Gap 13.0 (5-15) MEQ/L BUN 6 L (9-20) mg/dL Creatinine 0.78 (0.55-1.30) mg/dl Estimated GFR > 60 ML/MIN Glucose 100 (70-110) MG/DL Calcium 9.3 (8.5-10.1) mg/dL Total Bilirubin 0.20 (0.2-1.0) mg/dL AST 19 (15-37) U/L ALT 27 (12-78) U/L Alkaline Phosphatase 108 (46-116) U/L Serum Total Protein 7.5 (6.4-8.2) gm/dL Albumin 3.1 L (3.4-5.0) g/dL Assessment/Plan (1) Pneumonia Current Visit: Yes Status: Acute Qualifiers: Pneumonia type: due to unspecified organism Laterality: right Lung location: unspecified part of lung Qualified Code(s): J18.9 - Pneumonia, unspecified organism Assessment & Plan: Chief Complaint Diagnosis COPD. Pneumonia Admission Date Date 03/08/17 Allergies Allergy/AdvReac Type Severity Reaction Status Date / Time No Known Drug Allergies Allergy Unverified 03/08/17 08:22 Vital Signs (Last 24 hours) Temp Pulse Resp BP Pulse Ox 03/09/17 20:00 98.3 F 95 H 21 122/60 95 03/09/17 18:58 95 H 21 95 03/09/17 16:00 97.9 F 97 H 18 117/60 96 03/09/17 14:28 100 H 20 94 L 03/09/17 12:00 98.1 F 98 H 18 125/55 97 03/09/17 10:20 88 18 98 03/09/17 07:11 98.2 F 93 H 18 126/61 95 03/09/17 06:56 92 H 18 94 L 03/09/17 06:00 18 03/09/17 04:00 98.9 F 105 H 17 130/66 97 03/09/17 03:14 105 H 17 97 03/09/17 02:00 28 H 03/09/17 00:00 99.4 F 97 H 28 H 126/58 95 03/08/17 22:58 97 H 28 H 95 03/08/17 22:00 21 Current Medications Generic Name Dose Route Start Last Admin Trade Name Freq PRN Reason Stop Dose Admin Albuterol/Ipratropium 3 ml 03/08/17 10:19 Duoneb 0.5-3 Mg/3 Ml Neb IH 04/07/17 10:18 Q4HPRN PRN SHORTNESS OF BREATH/WHEEZING Albuterol/Ipratropium 3 ml 03/08/17 11:00 03/09/17 18:58 Duoneb 0.5-3 Mg/3 Ml Neb IH 04/07/17 10:59 3 ml Q4HRT STEFANI Administration Budesonide 0.5 mg 03/08/17 10:19 03/09/17 18:59 Pulmicort 0.5 Mg/2 Ml Respules IH 04/07/17 10:18 0.5 mg Q12HT STEFANI Administration Azithromycin 500 mg in 250 mls @ 250 mls/hr 03/08/17 10:19 03/09/17 10:39 Zithromax 500 Mg/ 250 Ml Nacl Premix IV 04/07/17 10:18 250 mls/hr Q24H10 STEFANI Administration Ceftriaxone Sodium/Dextrose 1 g in 50 mls @ 100 mls/hr 03/09/17 10:00 09:22 Rocephin 1 Gm-D5w 50 Ml Bag IV 04/08/17 09:59 100 mls/hr Q24H10 STEFANI Administration Sodium Chloride 1,000 mls @ 100 mls/hr 03/08/17 10:19 03/09/17 13:30 Sodium Chloride 0.9% 1000 Ml IV 04/07/17 10:18 100 mls/hr .Q10H STEFANI Administration Morphine Sulfate 1 mg 03/08/17 11:24 03/09/17 00:36 Morphine Sulfate 2 Mg Inj IV 03/13/17 11:23 1 mg Q4H PRN PRN Administration PAIN Discontinued Medications Generic Name Dose Route Start Last Admin Trade Name Freq PRN Reason Stop Dose Admin Albuterol/Ipratropium 3 ml 03/08/17 08:41 03/08/17 09:15 Duoneb 0.5-3 Mg/3 Ml Neb IH 03/08/17 08:42 3 ml STAT ONE Administration Albuterol/Ipratropium Confirm 03/08/17 09:06 Duoneb 0.5-3 Mg/3 Ml Neb Administered 03/08/17 09:07 Dose 3 ml IH .STK-MED ONE Budesonide 0.5 mg 03/08/17 09:15 03/08/17 09:19 Pulmicort Nebule IH 03/08/17 09:16 0.5 mg STAT ONE Administration Ceftriaxone Sodium/Dextrose 1 g in 50 mls @ 100 mls/hr 03/08/17 09:11 09:17 Rocephin 1 Gm-D5w 50 Ml Bag IV 03/08/17 09:40 100 mls/hr STAT STA Administration Ceftriaxone Sodium/Dextrose Confirm 03/08/17 09:16 Rocephin 1 Gm-D5w 50 Ml Bag Administered 03/08/17 09:17 Dose 1 g in 50 mls @ ud IV .STK-MED ONE Intake & Output (Last 24 hours) 03/07/17 03/08/17 03/09/17 03/10/17 11:59 11:59 11:59 11:59 Intake Total 2813 860 Output Total 500 Balance 2813 360 Weight 70.67 kg 73.255 kg Microbiology Results (Last 24 hours) 03/08/17 08:39 Clean Catch Midstream Urine Culture - Preliminary NO GROWTH TO DATE Laboratory Results (Last 24 hours) 03/09/17 03/09/17 05:00 05:00 WBC 11.3 H RBC 3.90 L Hgb 11.6 L Hct 37.6 MCV 96.4 MCH 29.7 MCHC 30.9 L RDW 13.7 Plt Count 334 MPV 10.4 H Gran % 69.8 H Lymphocytes % 20.2 L Monocytes % 8.6 Eosinophils % 1.0 Basophils % 0.4 Basophils # 0.05 Sodium 140 Potassium 4.1 Chloride 102 Carbon Dioxide 29.0 Anion Gap 13.0 BUN 6 L Creatinine 0.78 Estimated GFR > 60 Glucose 100 Calcium 9.3 Total Bilirubin 0.20 AST 19 ALT 27 Alkaline Phosphatase 108 Serum Total Protein 7.5 Albumin 3.1 L Orders (Last 24 hours) Category Date Time Status CBC W DIFF AM.LAB Lab 03/09/17 05:00 Completed CMP AM.LAB Lab 03/09/17 05:00 Completed Ceftriaxone 1 GM/50 ML PREMIX* [ROCEPHIN 1 Gm-D5w 50 ml Med 03/09/17 10:00 Active Bag] 1 g in 50 ml IV Q24H10 Patient Care Notes (Last 24 hours) 03/09/17 16:03 Nursing Note by Afua Cote Dr. made rounds at lunchtime, no new orders, states pt will stay another night in hosp. pt in agreement with this plan. Initialized on 03/09/17 16:03 - END OF NOTE Code(s): J18.9 - PNEUMONIA, UNSPECIFIED ORGANISM (2) COPD exacerbation Current Visit: Yes Status: Acute Code(s): J44.1 - CHRONIC OBSTRUCTIVE PULMONARY DISEASE W (ACUTE) EXACERBATION
[2017-03-10] MEDS: DUONEB 0.5-3 MG/3 ml Neb IH SCH ×6 (03:05→22:33)
[2017-03-10] MEDS: PULMICORT 0.5 MG/2 ML RESPULES IH SCH ×2 (06:48→18:53)
[2017-03-10] MEDS: Sodium Chloride 0.9% 1000 ML 1,000 ML IV SCH ×2 (09:05→23:24)
[2017-03-10] MEDS: ROCEPHIN 1 Gm-D5w 50 ml Bag** 1 G/50 ML IVPB IV SCH (09:07)
[2017-03-10] MEDS: Zithromax 500 MG/ 250 ML NaCl Premix 500 MG/250 ML IVPB IV SCH (09:07)
[2017-03-10 09:40] LABS: Mean Cell Volume 96.3 fl (78-100); Mean Platelet Volume 10.1 fl (6-9.5); Platelet Count 365 K/mm3 (150-450); Red Blood Count 3.55 M/mm3 (4.1-5.4); Red Cell Distribution Width 13.5 % (11.5-14.0)
[2017-03-10 09:43] LABS: Mean Corpuscular Hemoglobin 29.5 pg (26-32)
[2017-03-10 10:13] LABS: ALBUMIN 2.8 g/dL (3.4-5.0); ALKALINE PHOSPHATASE 106 U/L (46-116); BLOOD UREA NITROGEN 3 mg/dL (9-20); CHLORIDE 105 mEq/L (98-107); Carbon Dioxide 29.1 mEq/L (21-32); Glucose 95 MG/DL (70-110); Potassium 4.1 mEq/L (3.5-5.1); SGOT/AST 25 U/L (15-37); SGPT/ALT 35 U/L (12-78); SODIUM 143 mEq/L (136-145)
[2017-03-10] MEDS: TYLENOL EXTRA STRENGTH 500 MG PO PRN ×2 (11:09→21:13)
--- NOTE | 2017-03-10 12:07 | XRAY ---
Indication: Right-sided chest pain and short of breath. Pneumonia. COPD. Comparison: March 08, 2017. PA/lateral chest demonstrates little improvement in the previous right lower lung interstitial alveolar opacity which still persists. Remaining heart and lungs unremarkable.
--- NOTE | 2017-03-10 12:56 | PCM.NOTE ---
Date and Time: 03/10/17 1255 Subjective Assessment: short of breath today - Review of Systems Constitutional: No Fever, No Chills Eyes: No Symptoms Ears, Nose, & Throat: No Symptoms Respiratory: Orthopnea, Short Of Breath, No Cough Cardiac: No Chest Pain, No Edema, No Syncope Abdominal/Gastrointestinal: No Abdominal Pain, No Nausea, No Vomiting, No Diarrhea Genitourinary Symptoms: No Dysuria Musculoskeletal: No Back Pain, No Neck Pain Skin: No Rash Neurological: No Dizziness, No Focal Weakness, No Sensory Changes Psychological: No Symptoms Endocrine: No Symptoms Hematologic/Lymphatic: No Symptoms Immunological/Allergic: No Symptoms Objective Exam General Appearance: no apparent distress, alert Neurologic Exam: alert, oriented x 3, cooperative, normal mood/affect, nml cerebellar function, sensation nml, No motor deficits Skin Exam: normal color, warm, dry Eye Exam: PERRL, EOMI, eyes nml inspection Ears, Nose, Throat Exam: normal ENT inspection, pharynx normal, moist mucous membranes Neck Exam: normal inspection, non-tender, supple, full range of motion Respiratory Exam: diminished breath sounds, prolonged expirations, crackles/ rales, rhonchi, No respiratory distress Cardiovascular Exam: regular rate/rhythm, normal heart sounds Gastrointestinal/Abdomen Exam: soft, No tenderness, No mass Extremity Exam: normal inspection, normal range of motion Back Exam: normal inspection, normal range of motion, No CVA tenderness, No vertebral tenderness Pelvic Exam: deferred Rectal Exam: deferred OBJECTIVE DATA Vital Signs: Vital Signs - 24 hr Temp Pulse Resp BP Pulse Ox 03/10/17 11:14 86 20 95 03/10/17 07:01 98.4 F 97 H 18 112/55 92 L 03/10/17 06:50 88 20 92 L 03/10/17 04:00 98.4 F 93 H 20 132/62 94 L 03/10/17 03:05 93 H 20 94 L 03/10/17 02:00 20 03/09/17 23:54 99 F 96 H 20 129/62 92 L 03/09/17 22:58 96 H 20 92 L 03/09/17 20:00 98.3 F 95 H 21 122/60 95 03/09/17 18:58 95 H 21 95 03/09/17 16:00 97.9 F 97 H 18 117/60 96 03/09/17 14:28 100 H 20 94 L Pain Assessment - Last Documented Pain Intensity 4 Pain Scale Used 0-10 Pain Scale Intake and Output: Intake & Output 03/08/17 03/09/17 03/10/17 03/11/17 11:59 11:59 11:59 11:59 Intake Total 2813 4746 Output Total 500 Balance 2813 4246 Weight 70.67 kg 73.255 kg 72.756 kg Lab Results: Lab Results-Last 24 Hours 03/10/17 03/10/17 Range/Units 09:12 09:12 WBC 9.0 (4.0-10.5) K/mm3 RBC 3.55 L (4.1-5.4) M/mm3 Hgb 10.5 L (12.0-16.0) gm/dl Hct 34.2 L (35-47) % MCV 96.3 (78-100) fl MCH 29.5 (26-32) pg MCHC 30.7 L (32-36) g/dl RDW 13.5 (11.5-14.0) % Plt Count 365 (150-450) K/mm3 MPV 10.1 H (6-9.5) fl Sodium 143 (136-145) mEq/L Potassium 4.1 (3.5-5.1) mEq/L Chloride 105 (98-107) mEq/L Carbon Dioxide 29.1 (21-32) mEq/L Anion Gap 13.0 (5-15) MEQ/L BUN 3 L (9-20) mg/dL Creatinine 0.63 (0.55-1.30) mg/dl Estimated GFR > 60 ML/MIN Glucose 95 (70-110) MG/DL Calcium 9.0 (8.5-10.1) mg/dL Total Bilirubin 0.10 L (0.2-1.0) mg/dL AST 25 (15-37) U/L ALT 35 (12-78) U/L Alkaline Phosphatase 106 (46-116) U/L Serum Total Protein 7.0 (6.4-8.2) gm/dL Albumin 2.8 L (3.4-5.0) g/dL Radiology Exams: Radiology Procedures Category Date Time Status CHEST 2 VIEWS (PA AND LAT) Urgent Exams 03/10/17 09:03 Completed Assessment/Plan (1) Pneumonia Current Visit: Yes Status: Acute Qualifiers: Pneumonia type: due to unspecified organism Laterality: right Lung location: unspecified part of lung Qualified Code(s): J18.9 - Pneumonia, unspecified organism Code(s): J18.9 - PNEUMONIA, UNSPECIFIED ORGANISM (2) COPD exacerbation Current Visit: Yes Status: Acute Code(s): J44.1 - CHRONIC OBSTRUCTIVE PULMONARY DISEASE W (ACUTE) EXACERBATION
[2017-03-10] MEDS: solu-MEDROL 40 MG IV SCH ×2 (13:56→21:07)
[2017-03-11] MEDS: DUONEB 0.5-3 MG/3 ml Neb IH SCH ×4 (03:16→15:04)
[2017-03-11] MEDS: solu-MEDROL 40 MG IV SCH ×2 (06:34→13:53)
[2017-03-11] MEDS: PULMICORT 0.5 MG/2 ML RESPULES IH SCH (07:05)
[2017-03-11] MEDS: ROCEPHIN 1 Gm-D5w 50 ml Bag** 1 G/50 ML IVPB IV SCH (10:09)
[2017-03-11] MEDS: Zithromax 500 MG/ 250 ML NaCl Premix 500 MG/250 ML IVPB IV SCH (12:17)
[2017-03-11 12:21] VITALS: BP 146/65
--- NOTE | 2017-03-11 12:26 | PCM.DS ---
Discharge Summary Date of Admission: 03/08/17 10:12 Admitting Physician: JEREMIAS ANAYA Primary Care Provider: JEREMIAS ANAYA Allergies Allergies No Known Drug Allergies Allergy (Unverified 03/08/17 08:22) Hospital Summary - Hospital Course Hospital Course: Chief Complaint Diagnosis COPD. Pneumonia Admission Date Date 03/08/17 Allergies Allergy/AdvReac Type Severity Reaction Status Date / Time No Known Drug Allergies Allergy Unverified 03/08/17 08:22 Vital Signs (Last 24 hours) Temp Pulse Resp BP Pulse Ox 03/11/17 12:19 98.4 F 88 18 146/65 95 03/11/17 11:00 72 19 94 L 03/11/17 07:24 97.8 F 72 20 147/62 97 03/11/17 07:10 72 18 97 03/11/17 04:00 98.0 F 96 H 19 134/67 91 L 03/10/17 23:52 98.2 F 91 H 20 133/63 94 L 03/10/17 22:33 91 H 20 94 L 03/10/17 20:00 98.4 F 105 H 20 140/67 91 L 03/10/17 18:53 99 H 22 93 L 03/10/17 16:00 98.9 F 99 H 22 147/66 90 L 03/10/17 15:28 79 93 L Current Medications Generic Name Dose Route Start Last Admin Trade Name Freq PRN Reason Stop Dose Admin Acetaminophen 500 mg 03/10/17 09:32 03/10/17 21:13 Tylenol Extra Strength 500 Mg PO 04/09/17 09:31 500 mg Q4HPRN PRN Administration PAIN Albuterol/Ipratropium 3 ml 03/08/17 10:19 Duoneb 0.5-3 Mg/3 Ml Neb IH 04/07/17 10:18 Q4HPRN PRN SHORTNESS OF BREATH/WHEEZING Albuterol/Ipratropium 3 ml 03/08/17 11:00 03/11/17 11:10 Duoneb 0.5-3 Mg/3 Ml Neb IH 04/07/17 10:59 3 ml Q4HRT [facility] Administration Budesonide 0.5 mg 03/08/17 10:19 03/11/17 07:05 Pulmicort 0.5 Mg/2 Ml Respules IH 04/07/17 10:18 0.5 mg Q12HT STEFANI Administration Azithromycin 500 mg in 250 mls @ 250 mls/hr 03/08/17 10:19 03/11/17 12:17 Zithromax 500 Mg/ 250 Ml Nacl Premix IV 04/07/17 10:18 250 mls/hr Q24H10 [facility] Administration Ceftriaxone Sodium/Dextrose 1 g in 50 mls @ 100 mls/hr 03/09/17 10:00 10:09 Rocephin 1 Gm-D5w 50 Ml Bag IV 04/08/17 09:59 100 mls/hr Q24H10 [facility] Administration Sodium Chloride 1,000 mls @ 100 mls/hr 03/08/17 10:19 03/10/17 23:24 Sodium Chloride 0.9% 1000 Ml IV 04/07/17 10:18 100 mls/hr .Q10H [facility] Administration Methylprednisolone Sodium Succinate 40 mg 03/10/17 14:00 03/11/17 06:34 Solu-Medrol 40 Mg IV 04/09/17 13:59 40 mg Q8HT STEFANI Administration Morphine Sulfate 1 mg 03/08/17 11:24 03/09/17 00:36 Morphine Sulfate 2 Mg Inj IV 03/13/17 11:23 1 mg Q4H PRN PRN Administration PAIN Discontinued Medications Generic Name Dose Route Start Last Admin Trade Name Freq PRN Reason Stop Dose Admin Albuterol/Ipratropium 3 ml 03/08/17 08:41 03/08/17 09:15 Duoneb 0.5-3 Mg/3 Ml Neb IH 03/08/17 08:42 3 ml STAT ONE Administration Albuterol/Ipratropium Confirm 03/08/17 09:06 Duoneb 0.5-3 Mg/3 Ml Neb Administered 03/08/17 09:07 Dose 3 ml IH .STK-MED ONE Budesonide 0.5 mg 03/08/17 09:15 03/08/17 09:19 Pulmicort Nebule IH 03/08/17 09:16 0.5 mg STAT ONE Administration Ceftriaxone Sodium/Dextrose 1 g in 50 mls @ 100 mls/hr 03/08/17 09:11 09:17 Rocephin 1 Gm-D5w 50 Ml Bag IV 03/08/17 09:40 100 mls/hr STAT STA Administration Ceftriaxone Sodium/Dextrose Confirm 03/08/17 09:16 Rocephin 1 Gm-D5w 50 Ml Bag Administered 03/08/17 09:17 Dose 1 g in 50 mls @ ud IV .STK-MED ONE Intake & Output (Last 24 hours) 03/09/17 03/10/17 03/11/17 03/12/17 11:59 11:59 11:59 11:59 Intake Total 2813 4746 4645 Output Total 500 Balance 2813 4246 4645 Weight 73.255 kg 72.756 kg 73.527 kg Orders (Last 24 hours) Category Date Time Status Regular Diet Diet 03/11/17 Lunch Active Methylprednisolone Sod Suc 40M [solu-MEDROL 40 MG] Med 03/10/17 14:00 Active 40 mg IV Q8HT Flutter Therapy RT 03/10/17 13:32 Active Patient Care Notes (Last 24 hours) 03/11/17 12:21 Nursing Note by Riya Potts dr at bedside Initialized on 03/11/17 12:21 - END OF NOTE 03/11/17 09:44 Respiratory Note by Harry Perez Patient O2 sat on room air while at rest was 88%, patient was then placed on 2L oxygen while at rest O2 sat was 94% on 2L, nurse notified. Initialized on 03/11/17 09:44 - END OF NOTE - Vitals & Intake/Output Vital Signs: Vital Signs Temperature 98.4 F 03/11/17 12:19 Pulse Rate 88 03/11/17 12:19 Respiratory Rate 18 03/11/17 12:19 Blood Pressure 146/65 03/11/17 12:19 O2 Sat by Pulse Oximetry 95 03/11/17 12:19 Oxygen-Last Documented O2 Percentage 2 Liters = 28% Intake & Output: Intake & Output 03/09/17 03/10/17 03/11/17 03/12/17 11:59 11:59 11:59 11:59 Intake Total 2813 4746 4645 Output Total 500 Balance 2813 4246 4645 Weight 73.255 kg 72.756 kg 73.527 kg - Lab Result Diagrams: 03/10/17 09:12 03/10/17 09:12 - Radiology Exams Ordered Rad Exams-Entire Visit: Radiology Procedures Category Date Time Status CHEST 2 VIEWS (PA AND LAT) Urgent Exams 03/10/17 09:03 Completed - Procedures and Test Procedures and Tests throughout Hospitalization: Therapy Orders & Screens 03/08/17 11:00 Respiratory Nebulizer Q4H Comment: DUONEB Q4 Diagnosis: COPD. Pneumonia Respiratory Nebulizer UD Comment: DUONEB Q4 PRN Diagnosis: COPD. Pneumonia 03/08/17 11:05 RT Screen per Nursing Assess ONCE Comment: Protocol Order Physician Instructions: Greater than 3 points order RT Admission Screen Reason For Exam: Triggered on Admission Diagnosis: COPD. Pneumonia Diagnosis: COPD. Pneumonia Pneumonia: Yes Home O2: No Asthma: No CHF: No Home CPAP/BIPAP: No Home Nebs/MDI: Yes Total Points: 8 Smoking Cessation Education ONCE Comment: Diagnosis: COPD. Pneumonia Smoking Status: Current every day smoker How long have you smoked: 55 Approximately how many cigarettes per day: pack Do you dip or chew tobacco: No 03/08/17 19:00 Respiratory Nebulizer BID Comment: PULMICORT Q12 Diagnosis: COPD. Pneumonia 03/10/17 13:32 Flutter Therapy Comment: Diagnosis: COPD. Pneumonia Discharge Exam General Appearance: no apparent distress, alert Neurologic Exam: alert, oriented x 3, cooperative, normal mood/affect, nml cerebellar function, sensation nml, No motor deficits Skin Exam: normal color, warm, dry Eye Exam: PERRL, EOMI, eyes nml inspection Ears, Nose, Throat Exam: normal ENT inspection, pharynx normal, moist mucous membranes Neck Exam: normal inspection, non-tender, supple, full range of motion Respiratory Exam: rhonchi, No respiratory distress Cardiovascular Exam: regular rate/rhythm, normal heart sounds Gastrointestinal/Abdomen Exam: soft, No tenderness, No mass Extremity Exam: normal inspection, normal range of motion Back Exam: normal inspection, normal range of motion, No CVA tenderness, No vertebral tenderness Pelvic Exam: deferred Rectal Exam: deferred Final Diagnosis/Problem List - Final Discharge Diagnosis/Problem (1) Pneumonia Current Visit: Yes Status: Acute Assessment & Plan: doing better, will discharge home with levaquin 500 mg po daily, for 5 days (2) COPD exacerbation Current Visit: Yes Status: Resolved Assessment & Plan: Patient will require oxygen at home 2Liters per nasal cannula at home - Discharge Discharge Date: 03/11/17 Disposition: Home, Self-Care Condition: Stable Prescriptions: New Levofloxacin [Levaquin] 500 mg PO DAILY #7 tablet Methylprednisolone Packet [Medrol Dosepack] 4 mg PO UD #30 packet Continue Albuterol 2.5 mg/3 ml Neb [Proventil 2.5 mg/3 ml Neb] 2.5 mg QID Albuterol Sulfate [Proair Hfa] 8.5 gm DAILY Instructions: Chronic Obstructive Pulmonary Disease Additional Instructions: Follow up with at [facility] 03/18/17@ 11:00a.m. Follow up with: JEREMIAS ANAYA MD [Primary Care Provider] - 03/18/17 11:00 am Forms: Patient Portal Information
[2017-03-11 15:09] VITALS: PULSE 81; O2SAT 94
== END 2017-03-11 15:20 | disposition home or self-care (01) ==
LOC: ED 08:15 → MED SURG 10:12
PROVIDERS: ADMIT General Practice; ATTEND General Practice
DX: J18.9 Pneumonia, unspecified organism (principal); J44.1 Chronic obstructive pulmonary disease with (acute) exacerbation; I25.10 Atherosclerotic heart disease of native coronary artery without angina pectoris; I50.9 Heart failure, unspecified; E78.5 Hyperlipidemia, unspecified; M19.90 Unspecified osteoarthritis, unspecified site; Z72.0 Tobacco use; R06.02 Shortness of breath; Z79.899 Other long term (current) drug therapy
CPT/HCPCS: 36000; 36415; 71010; 71020; 80053; 81000; 82805; 83605; 85025; 85027; 85610; 85730; 87040; 87086; 93005; 93041; 93268; 94640; 94667; 94668; 94760; 94761; 96360; 99285; G0378; J0456; J0696; J2270; J2920; A9270-GY

== ENCOUNTER 2018-08-29 15:23 | Observation (INO) | payer MEDICARE ==
[2018-08-29] MEDS ORDERED: Sodium Chloride 0.9% 1000 ML 1,000 ML IV STA (16:24)
[2018-08-29] MEDS ORDERED: MORPHINE SULFATE 4 MG INJ IV PRN (16:25)
[2018-08-29 16:44] LABS: Hematocrit 42.9 % (35-47); Hemoglobin 13.5 gm/dl (12.0-16.0); Mean Cell Volume 97.3 fl (78-100); Mean Corpuscular Hemoglobin 30.6 pg (26-32); Mean Corpuscular Hgb Concent. 31.5 g/dl (32-36); Mean Platelet Volume 9.7 fl (6-9.5); Platelet Count 320 K/mm3 (150-450); Red Blood Count 4.41 M/mm3 (4.1-5.4); Red Cell Distribution Width 13.6 % (11.5-14.0); White Blood Count 7.3 K/mm3 (4.0-10.5)
[2018-08-29 16:55] LABS: ALBUMIN 4.6 g/dL (3.5-5.0); ALKALINE PHOSPHATASE 87 U/L (38-126); AMYLASE 59 U/L (30-110); ANION GAP 11.6 MEQ/L (5-15); BLOOD UREA NITROGEN 10 mg/dL (7-17); CHLORIDE 101 mmol/L (98-107); Calcium 9.8 mg/dL (8.4-10.2); Carbon Dioxide 30 mmol/L (22-30); Creatinine 1 0.69 mg/dL (0.52-1.04); Glucose 106 mg/dL (74-106); LIPASE 15 U/L (23-300); Potassium 5.7 mmol/L (3.5-5.1); SGOT/AST 20 U/L (14-36); SGPT/ALT 16 U/L (0-35); SODIUM 137 mmol/L (137-145); Total Protein 7.6 g/dL (6.3-8.2)
--- NOTE | 2018-08-29 17:00 | XRAY ---
Indication: Short of breath. Right shoulder pain. Comparison: March 10, 2017. PA/lateral chest again hyperinflated with incidental calcified granulomas. No focal infiltrate, consolidation, or large effusion. Heart is not enlarged. Bony thorax intact again with minimal degenerative changes. Impression: Stable COPD and evidence for old granulomatous disease. No new/acute findings.
[2018-08-29] MEDS ORDERED: TORAdol 30 mg Injection IV PRN ×2 (17:12→17:28)
[2018-08-29] MEDS: Nicoderm CQ 21 MG TOP SCH (18:03)
[2018-08-29] MEDS ORDERED: PROVENTIL 2.5 MG/3 ML NEB IH ONE (18:15)
[2018-08-29] MEDS: Sodium Chloride 0.9% 1000 ML 1,000 ML IV SCH (18:16)
[2018-08-29] MEDS: Zofran 4 MG/2 ML VIAL IV PRN (18:22)
[2018-08-29] MEDS: PROVENTIL 2.5 MG/3 ML NEB IH SCH (18:37)
[2018-08-30] MEDS: Norco 10/325 MG Tablet PO PRN ×4 (00:30→19:53)
[2018-08-30] MEDS: Sodium Chloride 0.9% 1000 ML 1,000 ML IV SCH ×2 (00:36→08:27)
[2018-08-30] MEDS: Zofran 4 MG/2 ML VIAL IV PRN ×2 (00:36→19:53)
[2018-08-30] MEDS: PROVENTIL 2.5 MG/3 ML NEB IH SCH ×4 (05:31→21:03)
--- NOTE | 2018-08-30 09:11 | XRAY ---
Indication: Nausea and vomiting. Two-dimensional gallbladder sonogram performed. Comparison: None Gallbladder normally distended without gallstones, wall thickening, or pericholecystic fluid. Common bile duct measures 5 mm. No intrahepatic biliary distention. Remaining visualized portions of the liver, pancreas, and right kidney appear sonographically unremarkable. Right kidney measures 9 cm in length. No ascites. Impression: Negative gallbladder sonogram.
--- NOTE | 2018-08-30 09:13 | PCM.HP.ADD ---
Addendum to History & Physical - History & Physical Addendum Addendum to History & Physical: This certifies that the History & Physical in the electronic chart reflects the current health status of the patient. If there are changes in the H&P these changes/exceptions are listed as follows.
[2018-08-30] MEDS ORDERED: Zovirax INJ IV SCH (09:15)
--- NOTE | 2018-08-30 09:17 | PCM.NOTE ---
Date and Time: 08/30/18912 Subjective Assessment: rash on right side T 10 dermatome area - Review of Systems Constitutional: No Fever, No Chills Eyes: No Symptoms Ears, Nose, & Throat: No Symptoms Respiratory: No Cough, No Short Of Breath Cardiac: No Chest Pain, No Edema, No Syncope Abdominal/Gastrointestinal: No Abdominal Pain, No Nausea, No Vomiting, No Diarrhea Genitourinary Symptoms: No Dysuria Musculoskeletal: No Back Pain, No Neck Pain Skin: Rash Neurological: No Dizziness, No Focal Weakness, No Sensory Changes Psychological: No Symptoms Endocrine: No Symptoms Hematologic/Lymphatic: No Symptoms Immunological/Allergic: No Symptoms Objective Exam General Appearance: no apparent distress, alert Neurologic Exam: alert, oriented x 3, cooperative, normal mood/affect, nml cerebellar function, sensation nml, No motor deficits Skin Exam: normal color, warm, dry, rash (on right side dermatome) Eye Exam: PERRL, EOMI, eyes nml inspection Ears, Nose, Throat Exam: normal ENT inspection, pharynx normal, moist mucous membranes Neck Exam: normal inspection, non-tender, supple, full range of motion Respiratory Exam: diminished breath sounds, No respiratory distress Cardiovascular Exam: regular rate/rhythm, normal heart sounds Gastrointestinal/Abdomen Exam: soft, No tenderness, No mass Extremity Exam: normal inspection, normal range of motion Back Exam: normal inspection, normal range of motion, No CVA tenderness, No vertebral tenderness Pelvic Exam: deferred Rectal Exam: deferred OBJECTIVE DATA Vital Signs: Vital Signs - 24 hr Temp Pulse Resp BP Pulse Ox 08/30/18 07:11 98.2 F 78 20 155/67 95 08/30/18 05:31 79 20 92 L 08/30/18 04:00 98.6 F 78 22 162/80 93 L 08/30/18 00:00 98.3 F 78 24 191/86 92 L 08/29/18 19:59 99.1 F 83 17 168/75 91 L 08/29/18 18:44 76 18 95 08/29/18 16:02 97.7 F 77 18 161/75 95 Pain Assessment - Last Documented Pain Intensity 6 Pain Scale Used 0-10 Pain Scale Intake and Output: Intake & Output 08/27/18 08/28/18 08/29/18 08/30/18 11:59 11:59 11:59 11:59 Intake Total 2821 Balance 2821 Weight 65.9 kg Lab Results: Lab Results-Last 24 Hours 08/29/18 08/29/18 08/29/18 Range/Units 16:42 16:42 16:42 WBC 7.3 (4.0-10.5) K/mm3 RBC 4.41 (4.1-5.4) M/mm3 Hgb 13.5 (12.0-16.0) gm/dl Hct 42.9 (35-47) % MCV 97.3 (78-100) fl MCH 30.6 (26-32) pg MCHC 31.5 L (32-36) g/dl RDW 13.6 (11.5-14.0) % Plt Count 320 (150-450) K/mm3 MPV 9.7 H (6-9.5) fl Sodium 137 (137-145) mmol/L Potassium 5.7 H (3.5-5.1) mmol/L Chloride 101 (98-107) mmol/L Carbon Dioxide 30 (22-30) mmol/L Anion Gap 11.6 (5-15) MEQ/L BUN 10 (7-17) mg/dL Creatinine 0.69 (0.52-1.04) mg/dL Estimated GFR > 60.0 ML/MIN Glucose 106 (74-106) mg/dL Calcium 9.8 (8.4-10.2) mg/dL Total Bilirubin 0.40 (0.2-1.3) mg/dL AST 20 (14-36) U/L ALT 16 (0-35) U/L Alkaline Phosphatase 87 (38-126) U/L Troponin I < 0.012 (0.000-0.034) ng/mL Serum Total Protein 7.6 (6.3-8.2) g/dL Albumin 4.6 (3.5-5.0) g/dL Amylase 59 (30-110) U/L Lipase 15 L (23-300) U/L Radiology Exams: Radiology Procedures Category Date Time Status CHEST 2 VIEWS (PA AND LAT) Routine Exams 08/29/18 16:51 Completed ECHO W/2D AND DOPPLER [US] Routine Exams 08/30/18 08:32 Taken GALLBLADDER [US] Routine Exams 08/30/18 09:00 Completed Assessment/Plan (1) Shingles rash Current Visit: Yes Status: Acute Qualifiers: Herpes zoster complications: with nervous system involvement Herpes zoster neurologic complication detail: other postherpetic nervous system involvement Qualified Code(s): B02.29 - Other postherpetic nervous system involvement Assessment & Plan: start acyclovir, IV and topically, isolation Code(s): B02.9 - ZOSTER WITHOUT COMPLICATIONS (2) COPD exacerbation Current Visit: No Status: Resolved Code(s): J44.1 - CHRONIC OBSTRUCTIVE PULMONARY DISEASE W (ACUTE) EXACERBATION (3) COPD (chronic obstructive pulmonary disease) Current Visit: No Status: Acute
[2018-08-30] MEDS ORDERED: ZOVIRAX TP SCH (10:00)
[2018-08-30] MEDS ORDERED: PROVENTIL COMMON CANISTER IH SCH (10:00)
[2018-08-30] MEDS: Nicoderm CQ 21 MG TOP SCH (10:34)
[2018-08-30] MEDS: WATER IV SCH ×2 (10:35→16:49)
[2018-08-30] MEDS: ZOVIRAX IV SCH ×2 (10:35→16:49)
[2018-08-30] MEDS: DEXTROSE IV SCH ×2 (10:35→16:49)
[2018-08-31] MEDS: ZOVIRAX IV SCH ×2 (03:22→09:53)
[2018-08-31] MEDS: DEXTROSE IV SCH ×2 (03:22→09:53)
[2018-08-31] MEDS: WATER IV SCH ×2 (03:22→09:53)
[2018-08-31] MEDS: Norco 10/325 MG Tablet PO PRN ×2 (03:22→09:53)
[2018-08-31] MEDS: PROVENTIL 2.5 MG/3 ML NEB IH SCH ×3 (07:12→14:13)
[2018-08-31] MEDS: Nicoderm CQ 21 MG TOP SCH (09:53)
--- NOTE | 2018-08-31 15:10 | PCM.DS ---
Discharge Summary Date of Admission: 08/29/18 15:46 Admitting Physician: JEREMIAS ANAYA Primary Care Provider: JEREMIAS ANAYA Allergies Allergies morphine Adverse Reaction (Severe, Verified 08/29/18 16:40) Headache Hospital Summary - Hospital Course Hospital Course: Last Vital Signs Temp 97.8 F 08/31/18 11:38 Pulse 75 08/31/18 14:21 Resp 20 08/31/18 14:21 BP 146/71 08/31/18 11:38 Pulse Ox 94 L 08/31/18 14:21 Allergies morphine Adverse Reaction (Severe, Verified 08/29/18 16:40) Headache Active Medications Hydrocodone Bitart/Acetaminophen ([place] 10/325 Mg Tablet) 1 tab PO Q4H PRN PRN PRN Reason: PAIN Stop: 09/04/18 00:12 Last Admin: 08/31/18 09:53 Dose: 1 tab Albuterol Sulfate (Proventil 2.5 Mg/3 Ml Neb) 2.5 mg IH QIDRT [facility] Stop: 09/28/18 18:59 Last Admin: 08/31/18 14:13 Dose: 2.5 mg Albuterol Sulfate (Proventil Common Canister) 2 puff IH DAILY [facility] Stop: 09/29/18 09:59 Sodium Chloride (Sodium Chloride 0.9% 1000 Ml) 1,000 mls @ 30 mls/hr IV .Q24H [facility] Stop: 09/28/18 17:29 Last Admin: 08/30/18 08:27 Dose: 150 mls/hr Acyclovir Sodium 800 mg/ (Dextrose) 250 mls @ 250 mls/hr IV Q8H [facility] Stop: 09/29/18 09:59 Last Admin: 08/31/18 09:53 Dose: 250 mls/hr Nicotine (Nicoderm Cq 21 Mg) 21 mg TOP Q24H10 [facility] Stop: 09/28/18 17:59 Last Admin: 08/31/18 09:53 Dose: 21 mg Ondansetron HCl (Zofran 4 Mg/2 Ml Vial) 4 mg IV Q6H PRN PRN PRN Reason: NAUSEA/VOMITING Stop: 09/28/18 17:12 Last Admin: 08/30/18 19:53 Dose: 4 mg Intake & Output 08/31/18 09/01/18 11:59 11:59 Intake Total 3490 240 Output Total 1900 Balance 1590 240 Orders 08/30/18 21:25 Oxygen Nasal Cannula 2 lpm 08/31/18 Discharge Planning,Consult Routine Discharge Routine - Vitals & Intake/Output Vital Signs: Vital Signs Temperature 97.8 F 08/31/18 11:38 Pulse Rate 75 08/31/18 14:21 Respiratory Rate 20 08/31/18 14:21 Blood Pressure 146/71 08/31/18 11:38 O2 Sat by Pulse Oximetry 94 L 08/31/18 14:21 Oxygen-Last Documented O2 Percentage 2 Liters = 28% Intake & Output: Intake & Output 08/29/18 08/30/18 08/31/18 09/01/18 11:59 11:59 11:59 11:59 Intake Total 2821 3490 240 Output Total 1900 Balance 2821 1590 240 Weight 65.9 kg - Lab Result Diagrams: 08/29/18 16:42 08/29/18 16:42 - Radiology Exams Ordered Rad Exams-Entire Visit: Radiology Procedures Category Date Time Status CHEST 2 VIEWS (PA AND LAT) Routine Exams 08/29/18 16:51 Completed ECHO W/2D AND DOPPLER [US] Routine Exams 08/30/18 08:32 Taken GALLBLADDER [US] Routine Exams 08/30/18 09:00 Completed - Procedures and Test Procedures and Tests throughout Hospitalization: Therapy Orders & Screens 08/29/18 16:12 EKG ROUTINE Comment: 08/29/18 16:23 Smoking Cessation Education ONCE Comment: Diagnosis: ACUTE SHOULDER PAIN Smoking Status: Current every day smoker How long have you smoked: 55 YEARS Have you smoked in the past 12 months: Yes Approximately how many cigarettes per day: 1 PACK A DAY Do you dip or chew tobacco: No 08/29/18 17:50 Respiratory Therapy Assessment DAILY Comment: Diagnosis: nausea vomiting 08/29/18 17:52 Peak Expiratory Flow Rate ONCE Comment: Reason For Exam: Diagnosis: nausea vomiting 08/30/18 21:25 Oxygen Nasal Cannula 2 lpm Comment: Diagnosis: nausea vomiting Discharge Exam General Appearance: no apparent distress, alert Neurologic Exam: alert, oriented x 3, cooperative, normal mood/affect, nml cerebellar function, sensation nml, No motor deficits Skin Exam: normal color, warm, dry Eye Exam: PERRL, EOMI, eyes nml inspection Ears, Nose, Throat Exam: normal ENT inspection, pharynx normal, moist mucous membranes Neck Exam: normal inspection, non-tender, supple, full range of motion Respiratory Exam: normal breath sounds, lungs clear, No respiratory distress Cardiovascular Exam: regular rate/rhythm, normal heart sounds Gastrointestinal/Abdomen Exam: soft, No tenderness, No mass Extremity Exam: normal inspection, normal range of motion Back Exam: normal inspection, normal range of motion, No CVA tenderness, No vertebral tenderness Pelvic Exam: deferred Rectal Exam: deferred Final Diagnosis/Problem List - Final Discharge Diagnosis/Problem (1) Shingles rash Current Visit: Yes Status: Acute Assessment & Plan: Last Vital Signs Temp 97.8 F 08/31/18 11:38 Pulse 75 08/31/18 14:21 Resp 20 08/31/18 14:21 BP 146/71 08/31/18 11:38 Pulse Ox 94 L 08/31/18 14:21 Allergies morphine Adverse Reaction (Severe, Verified 08/29/18 16:40) Headache Active Medications Hydrocodone Bitart/Acetaminophen ([place] 10/325 Mg Tablet) 1 tab PO Q4H PRN PRN PRN Reason: PAIN Stop: 09/04/18 00:12 Last Admin: 08/31/18 09:53 Dose: 1 tab Albuterol Sulfate (Proventil 2.5 Mg/3 Ml Neb) 2.5 mg IH QIDRT [facility] Stop: 09/28/18 18:59 Last Admin: 08/31/18 14:13 Dose: 2.5 mg Albuterol Sulfate (Proventil Common Canister) 2 puff IH DAILY [facility] Stop: 09/29/18 09:59 Sodium Chloride (Sodium Chloride 0.9% 1000 Ml) 1,000 mls @ 30 mls/hr IV .Q24H [facility] Stop: 09/28/18 17:29 Last Admin: 08/30/18 08:27 Dose: 150 mls/hr Acyclovir Sodium 800 mg/ (Dextrose) 250 mls @ 250 mls/hr IV Q8H [facility] Stop: 09/29/18 09:59 Last Admin: 08/31/18 09:53 Dose: 250 mls/hr Nicotine (Nicoderm Cq 21 Mg) 21 mg TOP Q24H10 [facility] Stop: 09/28/18 17:59 Last Admin: 08/31/18 09:53 Dose: 21 mg Ondansetron HCl (Zofran 4 Mg/2 Ml Vial) 4 mg IV Q6H PRN PRN PRN Reason: NAUSEA/VOMITING Stop: 09/28/18 17:12 Last Admin: 08/30/18 19:53 Dose: 4 mg Intake & Output 08/31/18 09/01/18 11:59 11:59 Intake Total 3490 240 Output Total 1900 Balance 1590 240 Orders 08/30/18 21:25 Oxygen Nasal Cannula 2 lpm 08/31/18 Discharge Planning,Consult Routine Discharge Routine (2) COPD exacerbation Current Visit: No Status: Resolved (3) COPD (chronic obstructive pulmonary disease) Current Visit: No Status: Acute - Discharge Discharge Date: 08/31/18 Disposition: Home, Self-Care Condition: Stable Prescriptions: New Ondansetron HCl [Zofran] 4 mg PO Q6HPRN PRN #20 tablet PRN Reason: Nausea/Vomiting Acyclovir 800 mg [Zovirax 800 mg] 800 mg PO TID #21 tablet Capsaicin [Zostrix] 56.6 gm TP TID #1 cream..g. Hydrocodone/APAP 10/325 mg [[place] 10/325 MG Tablet] 10 tab PO Q6H PRN PRN #30 tablet MDD 4 PRN Reason: Pain Continue Albuterol 2.5 mg/3 ml Neb [Proventil 2.5 mg/3 ml Neb] 2.5 mg IH QID Albuterol Sulfate [Proair Hfa] 8.5 gm DAILY Aspirin EC 81 mg [Ecotrin 81 mg] 81 mg PO DAILY Instructions: Shingles (DC), Exacerbation of COPD (DC) Additional Instructions: YOU WILL NEED TO WEAR YOUR OXYGEN, 2L PER NASAL CANULA 01/03. [facility] WILL PROVIDE ALL OF YOUR HOME OXYGEN NEEDS, YOU MAY REACH THEM AT Follow up with: JEREMIAS ANAYA MD [Primary Care Provider] - 09/08/18 1:30 pm Forms: Discharge Instructions
[2018-08-31 16:59] VITALS: BP 146/70; PULSE 91; O2SAT 98
--- NOTE | 2018-09-01 10:49 | ECHO ---
DATE OF PROCEDURE: 08/30/2018 CLINICAL INFORMATION: Shortness of breath and shoulder pain. The M-mode 2D, and Doppler echocardiogram are technically difficult. The left ventricle is normal in size at 4.9 cm. There is no apical thrombus present. The septal wall thickness is increased at 1.2 cm. The left ventricular posterior wall thickness is increased at 1.2 cm. There is normal contractility of the left ventricle. The ejection fraction is calculated to be between 55 and 60%. The right ventricle was normal. The left atrium is not well visualized. The interatrial septum is not well visualized. The right atrium is not well visualized. The aortic valve opens well and is trileaflet. There is mitral valve leaflet thickening associated with mild mitral regurgitation present. There is mild tricuspid regurgitation present. The right ventricular systolic pressure is normal at 26 mm of Mercury. The pulmonic valve is not well visualized. The aortic root is not well visualized. There is no pericardial effusion present. IMPRESSION: 1) NORMAL CONTRACTILITY OF THE LEFT VENTRICLE. 2) MILD CONCENTRIC LEFT VENTRICULAR HYPERTROPHY. 3) MILD MITRAL REGURGITATION. 4) MILD TRICUSPID REGURGITATION. 5) NORMAL RIGHT VENTRICULAR SYSTOLIC PRESSURE.
== END 2018-08-31 17:20 | disposition home or self-care (01) ==
LOC: MED SURG 15:46
PROVIDERS: ADMIT General Practice; ATTEND General Practice
DX: B02.9 Zoster without complications (principal); J44.1 Chronic obstructive pulmonary disease with (acute) exacerbation; R07.9 Chest pain, unspecified; R11.2 Nausea with vomiting, unspecified; M25.511 Pain in right shoulder; Z79.899 Other long term (current) drug therapy
CPT/HCPCS: 36415; 71046; 76705; 80053; 82150; 83690; 84484; 85027; 93005; 93268; 93306; 94150; 94640; 94760; G0378; J0133; J1885; J2405; J7609; A9270-GY

== ENCOUNTER 2019-06-07 10:44 | Emergency (ER) | payer MEDICARE ==
[2019-06-07] MEDS ORDERED: DUONEB 0.5-3 MG/3 ml Neb IH ONE ×2 (11:29→11:34)
[2019-06-07] MEDS ORDERED: solu-MEDROL 125 MG IV ONE (11:29)
[2019-06-07] MEDS ORDERED: solu-MEDROL 125 MG ONE (11:35)
--- NOTE | 2019-06-07 11:36 | ERPHSYRPT ---
- History of Present Illness Time Seen by Provider: 06/07/19 10:47 Source: patient Exam Limitations: no limitations Patient Subjective Stated Complaint: SOB Triage Nursing Assessment: Patient ambulated back to ED and transferred self to bed. Patient A+O X 3. Patient's skin pink, warm and dry. Patient complains of increasing SOB for the past 3 days. Patient wearing home O2 at 3 liters per N/ C. Patient's lungs wheezy throughout. Patient has productive cough with scant , amount of thick white sputum. Physician History: 69 years old female with history of chronic respiratory failure 2 L oxygen, tobacco abusepresented to the ER with chief complaint of increasing shortness of breath and cough for the last 3-4 days progressively worsening. Patient reports coughing up yellow-green sputum, copious in amount which is different than her routine smoker's cough. She has been using 3 L oxygen with no significant relief since yesterday. Shortness of breath gets worse with activity and lying down and better with sitting up. Patient reports lying down makes her cough worse leading to shortness of breath. Denies any fever but thinks she has got some cold symptoms initially followed by cough and shortness of breath. Denies any chest pain or palpitations. Timing/Duration: day(s) (3) Activities at Onset: activity Severity of Dyspnea-Max: moderate Severity of Dyspnea-Current: moderate Possible Cause: illness exposure Modifying Factors: Improves With: albuterol nebulizer, coughing, lying down Associated Symptoms: cough, chest pain/discomfort, wheezing Allergies/Adverse Reactions: morphine Adverse Reaction (Severe, Verified 06/07/19 10:49) Headache Home Medications: Albuterol 2.5 mg/3 ml Neb [Proventil 2.5 mg/3 ml Neb] 2.5 mg IH QID [History] Albuterol Sulfate [Proair Hfa] 8.5 gm DAILY 10/08/16 [History] Aspirin EC 81 mg [Ecotrin 81 mg] 81 mg PO DAILY 08/29/18 [History] Hx Tetanus, Diphtheria Vaccination/Date Given: Yes (UNKNOWN) Hx Influenza Vaccination/Date Given: No Hx Pneumococcal Vaccination/Date Given: No Immunizations Up to Date: Yes - Review of Systems Constitutional: Fatigue Eyes: No Symptoms Ears, Nose, & Throat: No Symptoms Respiratory: Cough, Wheezing Cardiac: No Symptoms, No Chest Pain Abdominal/Gastrointestinal: No Symptoms, No Abdominal Pain Musculoskeletal: No Symptoms Skin: No Symptoms Neurological: No Symptoms Psychological: No Symptoms Endocrine: No Symptoms Hematologic/Lymphatic: No Symptoms - Past Medical History Pertinent Past Medical History: Yes Neurological History: No Pertinent History ENT History: No Pertinent History Cardiac History: No Pertinent History Respiratory History: COPD, Pneumonia Endocrine Medical History: No Pertinent History Musculoskeletal History: Arthritis GI Medical History: Hernia History: No Pertinent History Psycho-Social History: Panic Disorder Female Reproductive Disorders: No Pertinent History - Past Surgical History Past Surgical History: Yes Neuro Surgical History: No Pertinent History Cardiac: No Pertinent History Respiratory: No Pertinent History Gastrointestinal: Appendectomy Musculoskeletal: Orthopedic Surgery Female Surgical History: Section Other Surgical History: hand surg - Social History Smoking Status: Current every day smoker How long have you smoked: years Exposure to second hand smoke: Yes Drug Use: none Patient Lives Alone: Yes - Female History Hx Now: No - Nursing Vital Signs Nursing Vital Signs: Initial Vital Signs Temperature 99.0 F 06/07/19 10:49 Pulse Rate 107 H 06/07/19 10:49 Respiratory Rate 25 H 06/07/19 10:49 Blood Pressure 150/76 06/07/19 10:49 O2 Sat by Pulse Oximetry 98 06/07/19 10:49 Pain Scale Pain Intensity 0 - Physical Exam General Appearance: no apparent distress Eye Exam: eyes nml inspection Ears, Nose, Throat Exam: hearing grossly normal, pharyngeal erythema Neck Exam: normal inspection, non-tender, supple, full range of motion Respiratory Exam: diminished breath sounds, wheezing, No crackles/rales Cardiovascular/Chest Exam: normal heart sounds, regular rate/rhythm, murmur Abdominal/Gastrointestinal Exam: soft, normal bowel sounds, No tenderness, No distention Extremity Exam: non-tender, normal range of motion Neurologic Exam: alert, oriented x 3, cooperative Skin Exam: normal color SpO2 Interpretation: normal SpO2: 98 O2 Delivery: Nasal Cannula - Course Nursing assessment & vital signs reviewed: Yes EKG Interpreted by Me: RATE (92), NORMAL AXIS, NORMAL INTERVALS, NORMAL QRS Ordered Tests: Active Orders 24 hr Category Date Time Status CHEST 2 VIEWS (PA AND LAT) Stat Exams 06/07/19 12:19 Completed CBC W DIFF Stat Lab 06/07/19 11:35 Completed CMP Stat Lab 06/07/19 11:35 Completed Lactic Acid Stat Lab 06/07/19 11:35 Completed NT PRO BNP Stat Lab 06/07/19 11:35 Completed TROPONIN Q3H Lab 06/07/19 11:35 Completed TROPONIN Q3H Lab 06/07/19 14:30 Ordered TROPONIN Q3H Lab 06/07/19 17:30 Ordered TROPONIN Q3H Lab 06/07/19 20:30 Ordered TROPONIN Q3H Lab 06/07/19 23:30 Ordered Respiratory Therapy Assessment DAILY RT 06/07/19 11:48 Active Medication Summary Discontinued Medications Generic Name Dose Route Start Last Admin Trade Name Freq PRN Reason Stop Dose Admin Albuterol/Ipratropium 3 ml 06/07/19 11:29 06/07/19 11:37 Duoneb 0.5-3 Mg/3 Ml Neb IH 06/07/19 11:30 3 ml STAT ONE Administration Albuterol/Ipratropium Confirm 06/07/19 11:34 Duoneb 0.5-3 Mg/3 Ml Neb Administered 06/07/19 11:35 Dose 3 ml IH .STK-MED ONE Methylprednisolone Sodium Succinate 125 mg 06/07/19 11:29 06/07/19 11:36 Solu-Medrol 125 Mg IV 06/07/19 11:30 125 mg STAT ONE Administration Methylprednisolone Sodium Succinate Confirm 06/07/19 11:35 Solu-Medrol 125 Mg Administered 06/07/19 11:36 Dose 125 mg .ROUTE .STK-MED ONE Lab/Rad Data: Laboratory Result Diagrams 06/07/19 11:35 06/07/19 11:35 Laboratory Results 06/07/19 06/07/19 06/07/19 Range/Units 11:35 11:35 11:35 WBC (4.0-10.5) K/mm3 RBC (4.1-5.4) M/mm3 Hgb (12.0-16.0) gm/dl Hct (35-47) % MCV (78-100) fl MCH (26-32) pg MCHC (32-36) g/dl RDW (11.5-14.0) % Plt Count (150-450) K/mm3 MPV (6-9.5) fl Gran % (36.0-66.0) % Eos # (Auto) (0-0.5) Absolute Lymphs (auto) (1.0-4.6) Absolute Monos (auto) (0.0-1.3) Lymphocytes % (24.0-44.0) % Monocytes % (0.0-12.0) % Eosinophils % (0.00-5.0) % Basophils % (0.0-0.4) % Absolute Granulocytes (1.4-6.9) Basophils # (0-0.4) Sodium 142 (137-145) mmol/L Potassium 4.3 (3.5-5.1) mmol/L Chloride 103 (98-107) mmol/L Carbon Dioxide 31 H (22-30) mmol/L Anion Gap 12.4 (5-15) MEQ/L BUN 7 (7-17) mg/dL Creatinine 0.51 L (0.52-1.04) mg/dL Estimated GFR > 60.0 ML/MIN Glucose 96 (74-106) mg/dL Lactic Acid 0.7 (0.4-2.0) Calcium 9.7 (8.4-10.2) mg/dL Total Bilirubin 0.60 (0.2-1.3) mg/dL AST 30 (14-36) U/L ALT 15 (0-35) U/L Alkaline Phosphatase 64 (38-126) U/L Troponin I < 0.012 (0.000-0.034) ng/mL NT-Pro-B Natriuret Pep 294 (0-900) pg/mL Serum Total Protein 7.6 (6.3-8.2) g/dL Albumin 4.4 (3.5-5.0) g/dL 06/07/19 Range/Units 11:35 WBC 8.7 (4.0-10.5) K/mm3 RBC 3.98 L (4.1-5.4) M/mm3 Hgb 13.0 (12.0-16.0) gm/dl Hct 39.4 (35-47) % MCV 99.0 (78-100) fl MCH 32.6 H (26-32) pg MCHC 33.0 (32-36) g/dl RDW 13.9 (11.5-14.0) % Plt Count 302 (150-450) K/mm3 MPV 10.0 H (6-9.5) fl Gran % 74.9 H (36.0-66.0) % Eos # (Auto) 0.17 (0-0.5) Absolute Lymphs (auto) 1.08 (1.0-4.6) Absolute Monos (auto) 0.87 (0.0-1.3) Lymphocytes % 12.5 L (24.0-44.0) % Monocytes % 10.0 (0.0-12.0) % Eosinophils % 2.0 (0.00-5.0) % Basophils % 0.6 (0.0-0.4) % Absolute Granulocytes 6.49 (1.4-6.9) Basophils # 0.05 (0-0.4) Sodium (137-145) mmol/L Potassium (3.5-5.1) mmol/L Chloride (98-107) mmol/L Carbon Dioxide (22-30) mmol/L Anion Gap (5-15) MEQ/L BUN (7-17) mg/dL Creatinine (0.52-1.04) mg/dL Estimated GFR ML/MIN Glucose (74-106) mg/dL Lactic Acid (0.4-2.0) Calcium (8.4-10.2) mg/dL Total Bilirubin (0.2-1.3) mg/dL AST (14-36) U/L ALT (0-35) U/L Alkaline Phosphatase (38-126) U/L Troponin I (0.000-0.034) ng/mL NT-Pro-B Natriuret Pep (0-900) pg/mL Serum Total Protein (6.3-8.2) g/dL Albumin (3.5-5.0) g/dL - Progress Progress: improved Air Movement: good Progress Note: 06/07/19 12:56 69 years old is evaluated for increasing shortness of breath and cough. She is given duo neb and steroid shot, reevaluation wheezing is much better.. She is currently maintaining oxygen saturation around 96% on 2 L which is her baseline oxygen use it. She is not in any distress, not using any accessory muscles. Nontachypneic or tachycardic.EKG did not show any acute ischemic changes. Unremarkable troponins. This seems more of an infectious etiology which started initially as a, cold later on without cough with shortness of breath. I believe she has COPD exacerbation will start her on steroids and antibiotics. Discussed with patient about observation admission but she wants to go home. She does not have a toxic appearance, not in any distress, I think this is reasonable. I have discussed with patient in detail about signs and symptoms of worsening needing to return to the ER which she seemed understanding. Antibiotics given: Yes Counseled pt/family regarding: lab results, diagnosis, need for follow-up, rad results, smoking cessation - Departure Departure Disposition: Home Clinical Impression: COPD exacerbation Condition: Stable Critical Care Time: No Referrals: JEREMIAS ANAYA MD [Primary Care Provider] - Follow Up with PCP (1-2 days ) Instructions: Exacerbation of COPD (DC) Additional Instructions: follow up with primary care physician for reevaluation in one to 2 days. Do not smoke. Take breathing treatments every 4-6 hour as needed. Return to ER for worsening cough/shortness of breath/fever or chills. Prescriptions: Doxycycline Hyclate 100 mg [Vibramycin 100 MG] 100 mg PO BID #14 tab Prednisone 20 mg [Deltasone 20 mg] 60 mg PO DAILY #15 tablet
[2019-06-07 11:41] LABS: Absolute Neutrophil Ct (ANC) 6.49 (1.4-6.9); BASOPHIL % 0.6 % (0.0-0.4); Basophil (Absolute #) 0.05 (0-0.4); Eosinophil (Absolute #) 0.17 (0-0.5); Hematocrit 39.4 % (35-47); Lymphocyte (Absolute #) 1.08 (1.0-4.6); Lymphocytes % 12.5 % (24.0-44.0); Monocyte (Absolute #) 0.87 (0.0-1.3); Neutrophil % 74.9 % (36.0-66.0); Platelet Count 302 K/mm3 (150-450); Red Blood Count 3.98 M/mm3 (4.1-5.4); Red Cell Distribution Width 13.9 % (11.5-14.0); White Blood Count 8.7 K/mm3 (4.0-10.5)
[2019-06-07 11:47] LABS: Mean Corpuscular Hemoglobin 32.6 pg (26-32)
[2019-06-07 12:06] LABS: ALBUMIN 4.4 g/dL (3.5-5.0); ALKALINE PHOSPHATASE 64 U/L (38-126); ANION GAP 12.4 MEQ/L (5-15); BLOOD UREA NITROGEN 7 mg/dL (7-17); CHLORIDE 103 mmol/L (98-107); Calcium 9.7 mg/dL (8.4-10.2); Carbon Dioxide 31 mmol/L (22-30); Creatinine 1 0.51 mg/dL (0.52-1.04); Glucose 96 mg/dL (74-106); NT PRO BNP 294 pg/mL (0-900); Potassium 4.3 mmol/L (3.5-5.1); SGOT/AST 30 U/L (14-36); SGPT/ALT 15 U/L (0-35); SODIUM 142 mmol/L (137-145); Total Protein 7.6 g/dL (6.3-8.2)
--- NOTE | 2019-06-07 12:48 | XRAY ---
Indication: Cough. Comparison: August 29, 2018. PA/lateral chest remains hyperinflated and clear with a few incidental tiny calcified granulomas. Heart and mediastinal structures within normal limits. Bony thorax intact again with mild degenerative changes. Impression: Stable nonacute hyperinflated chest with chronic features.
[2019-06-07 12:54] VITALS: BP 123/75; PULSE 89
[2019-06-07 12:56] VITALS: O2SAT 98
== END 2019-06-07 13:22 | disposition home or self-care (01) ==
LOC: ED 10:44
DX: J96.10 Chronic respiratory failure, unspecified whether with hypoxia or hypercapnia (principal)
CPT/HCPCS: 36000; 36415; 71046; 80053; 83605; 83880; 84484; 85025; 94640; 96374; 99284; J2930; A9270-GY

== ENCOUNTER 2021-01-23 10:56 | Observation (INO) | payer MEDICARE ==
[2021-01-23] MEDS ORDERED: DUONEB 0.5-3 MG/3 ml Neb IH ONE (14:06)
[2021-01-23] MEDS ORDERED: PROVENTIL 2.5 MG/3 ML NEB IH PRN (14:08)
[2021-01-23] MEDS: DUONEB 0.5-3 MG/3 ml Neb IH SCH ×2 (14:08→19:24)
[2021-01-23] MEDS: solu-MEDROL 125 MG IV SCH ×2 (15:05→22:17)
[2021-01-23] MEDS: Sodium Chloride 0.9% 1000 ML 1,000 ML IV SCH (15:06)
[2021-01-23] MEDS: Zithromax 500 MG/ 250 ML NaCl Premix 500 MG/250 ML IVPB IV SCH (15:07)
[2021-01-23] MEDS: ROCEPHIN 1 Gm-D5w 50 ml Bag** 1 G/50 ML IVPB IV SCH (15:07)
--- NOTE | 2021-01-23 15:22 | XRAY ---
Indication: COPD. Comparison: June 07, 2019. PA/lateral chest again demonstrates COPD and a few incidental tiny calcified granulomas. No focal infiltrate, consolidation, or large effusion. Heart and mediastinal structures within normal limits. Bony thorax intact again with mild osteopenia, degenerative changes, and minimal scoliosis. Impression: Continued nonacute chest with chronic features.
[2021-01-23] MEDS: Nicoderm CQ 21 MG TOP SCH (15:44)
[2021-01-23] MEDS: ENOXAPARIN SODIUM SQ SCH (16:38)
[2021-01-23] MEDS ORDERED: TYLENOL EXTRA STRENGTH 500 MG PO PRN (22:29)
[2021-01-24] MEDS: Sodium Chloride 0.9% 1000 ML 1,000 ML IV SCH ×2 (02:44→18:27)
[2021-01-24] MEDS: solu-MEDROL 125 MG IV SCH ×3 (06:02→22:36)
[2021-01-24] MEDS: DUONEB 0.5-3 MG/3 ml Neb IH SCH ×4 (06:58→19:05)
--- NOTE | 2021-01-24 08:08 | PCM.NOTE ---
Date and Time: 01/24/21805 Subjective Assessment: doing better - Review of Systems Constitutional: No Fever, No Chills Eyes: No Symptoms Ears, Nose, & Throat: No Symptoms Respiratory: Cough, Short Of Breath, Wheezing Cardiac: No Chest Pain, No Edema, No Syncope Abdominal/Gastrointestinal: No Abdominal Pain, No Nausea, No Vomiting, No Diarrhea Genitourinary Symptoms: No Dysuria Musculoskeletal: No Back Pain, No Neck Pain Skin: No Rash Neurological: No Dizziness, No Focal Weakness, No Sensory Changes Psychological: No Symptoms Endocrine: No Symptoms Hematologic/Lymphatic: No Symptoms Immunological/Allergic: No Symptoms Objective Exam General Appearance: no apparent distress, alert Neurologic Exam: alert, oriented x 3, cooperative, normal mood/affect, nml cerebellar function, sensation nml, No motor deficits Skin Exam: normal color, warm, dry Eye Exam: PERRL, EOMI, eyes nml inspection Ears, Nose, Throat Exam: normal ENT inspection, pharynx normal, moist mucous membranes Neck Exam: normal inspection, non-tender, supple, full range of motion Respiratory Exam: diminished breath sounds, wheezing, No respiratory distress Cardiovascular Exam: regular rate/rhythm, normal heart sounds Gastrointestinal/Abdomen Exam: soft, No tenderness, No mass Extremity Exam: normal inspection, normal range of motion Back Exam: normal inspection, normal range of motion, No CVA tenderness, No vertebral tenderness Pelvic Exam: deferred Rectal Exam: deferred OBJECTIVE DATA Vital Signs: Vital Signs - 24 hr Temp Pulse Resp BP Pulse Ox 01/24/21 07:00 75 20 97 01/24/21 04:00 97.7 F 86 20 156/71 95 01/23/21 23:44 97.9 F 75 19 148/65 94 L 01/23/21 19:38 97.8 F 89 18 151/68 93 L 01/23/21 19:25 91 H 20 93 L 01/23/21 16:00 98.3 F 78 18 158/72 91 L 01/23/21 14:09 76 20 94 L 01/23/21 11:25 98.3 F 72 20 171/77 94 L Pain Assessment - Last Documented Pain Intensity 1 Pain Scale Used 0-10 Pain Scale Intake and Output: Intake & Output 01/21/21 01/22/21 01/23/21 01/24/21 11:59 11:59 11:59 11:59 Intake Total 2258 Output Total 2700 Balance -442 Weight 56.7 kg Lab Results: Lab Results-Last 24 Hours 01/23/21 Range/Units 11:35 SARS-CoV-2 (PCR) NEGATIVE (NEGATIVE) Radiology Exams: Radiology Procedures Category Date Time Status CHEST 2 VIEWS (PA AND LAT) Routine Exams 01/23/21 15:14 Completed Assessment/Plan (1) COPD exacerbation Current Visit: No Status: Acute Assessment & Plan: Chief Complaint Diagnosis copd exac Allergies Allergy/AdvReac Type Severity Reaction Status Date / Time morphine AdvReac Severe Headache Verified 06/07/19 10:49 Vital Signs (Last 24 hours) Temp Pulse Resp BP Pulse Ox 01/24/21 07:00 75 20 97 01/24/21 04:00 97.7 F 86 20 156/71 95 01/23/21 23:44 97.9 F 75 19 148/65 94 L 01/23/21 19:38 97.8 F 89 18 151/68 93 L 01/23/21 19:25 91 H 20 93 L 01/23/21 16:00 98.3 F 78 18 158/72 91 L 01/23/21 14:09 76 20 94 L 01/23/21 11:25 98.3 F 72 20 171/77 94 L Home Medications Medication Instructions Recorded Confirmed Last Taken Type Magnesium Oxide 400 mg [Mag-Ox 400 mg PO DAILY 01/23/21 01/23/21 Unknown History 400] Potassium Chloride 10 meq PO DAILY 01/23/21 01/23/21 01/16/21 History Current Medications Generic Name Dose Route Start Last Admin Trade Name Freq PRN Reason Stop Dose Admin Acetaminophen 1,000 mg 01/24/21 07:15 Tylenol Extra Strength 500 Mg PO 02/22/21 22:28 Q6H PRN PRN HEADACHE Albuterol Sulfate 2.5 mg 01/23/21 14:08 Proventil 2.5 Mg/3 Ml Neb IH 02/22/21 14:07 Q4H PRN PRN SHORTNESS OF BREATH/WHEEZING Albuterol/Ipratropium 3 ml 01/23/21 15:00 01/24/21 06:58 Duoneb 0.5-3 Mg/3 Ml Neb IH 02/22/21 14:59 3 ml QIDRT STEFANI Administration Enoxaparin Sodium 40 mg 01/23/21 18:00 01/23/21 16:38 Enoxaparin Sodium SQ 02/22/21 17:59 40 mg 1800 STEFANI Administration Azithromycin 500 mg in 250 mls @ 250 mls/hr 01/23/21 16:00 01/23/21 15:07 Zithromax 500 Mg/ 250 Ml Nacl Premix IV 02/22/21 15:59 250 mls/hr Q24H10 STEFANI Administration Ceftriaxone Sodium/Dextrose 1 g in 50 mls @ 100 mls/hr 01/23/21 15:00 01/23/21 15:07 Rocephin 1 Gm-D5w 50 Ml Bag IV 01/26/21 14:59 100 mls/hr Q24H10 STEFANI Administration Sodium Chloride 1,000 mls @ 100 mls/hr 01/23/21 15:00 01/24/21 02:44 Sodium Chloride 0.9% 1000 Ml IV 02/22/21 14:59 100 mls/hr .Q10H STEFANI Administration Magnesium Oxide 400 mg 01/24/21 10:00 Mag-Ox 400 PO 02/23/21 09:59 DAILY STEFANI Methylprednisolone Sodium Succinate 80 mg 01/23/21 15:00 01/24/21 06:02 Solu-Medrol 125 Mg IV 02/22/21 14:59 80 mg Q8H STEFANI Administration Nicotine 21 mg 01/23/21 15:30 01/23/21 15:44 Nicoderm Cq 21 Mg TOP 02/22/21 15:29 21 mg Q24H STEFANI Administration Potassium Chloride 10 meq 01/24/21 10:00 Klor Con 10 Meq PO 02/23/21 09:59 DAILY STEFANI Discontinued Medications Generic Name Dose Route Start Last Admin Trade Name Freq PRN Reason Stop Dose Admin Acetaminophen 1,000 mg 01/23/21 22:29 01/23/21 22:35 Tylenol Extra Strength 500 Mg PO 02/22/21 22:28 1,000 mg Q6H PRN Administration HEADACHE Albuterol/Ipratropium Confirm 01/23/21 14:06 Duoneb 0.5-3 Mg/3 Ml Neb Administered 01/23/21 14:07 Dose 3 ml IH .STK-MED ONE Intake & Output (Last 24 hours) 01/21/21 01/22/21 01/23/21 01/24/21 11:59 11:59 11:59 11:59 Intake Total 2258 Output Total 2700 Balance -442 Weight 56.7 kg Laboratory Results (Last 24 hours) 01/23/21 11:35 SARS-CoV-2 (PCR) NEGATIVE Orders (Last 24 hours) Category Date Time Status Activity as Tolerated TOLERATED Activity 01/23/21 14:[address] in Observation ROUTINE Care 01/23/21 11:11 Active Sequential Compression Device Q6H Care 01/23/21 14:53 Active [employer] Traffic Control Supervisor/Discharge Plan ROUTINE Cons 01/23/21 11:50 Active House Regular Diet Diet 01/23/21 Dinner Active CHEST 2 VIEWS (PA AND LAT) Routine Exams 01/23/21 15:14 Completed CBC W DIFF Stat Lab 01/24/21 08:06 Ordered CMP Routine Lab 01/24/21 08:06 Ordered Acetaminophen 500 mg [Tylenol Extra Strength 500 mg* Med 01/23/21 22:29 Discontinued ] 1,000 mg PO Q6H PRN Acetaminophen 500 mg [Tylenol Extra Strength 500 mg* Med 01/24/21 07:15 Active ] 1,000 mg PO Q6H PRN PRN Albuterol 2.5 mg/3 ml Neb [Proventil 2.5 mg/3 ml Neb Med 01/23/21 14:08 Active ] 2.5 mg IH Q4H PRN PRN Albuterol/Ipratropium 3ml Neb* [DUONEB 0.5-3 MG/3 ml Med 01/23/21 14:06 Discontinued Neb] 3 ml IH .STK-MED ONE Albuterol/Ipratropium 3ml Neb* [DUONEB 0.5-3 MG/3 ml Med 01/23/21 15:00 Active Neb] 3 ml IH QIDRT Azithromycin 500 mg/250 ml [Zithromax 500 MG/ 250 ML Med 01/23/21 16:00 Active NaCl Premix] 500 mg in 250 ml IV Q24H10 Ceftriaxone 1 GM/50 ML PREMIX* [ROCEPHIN 1 Gm-D5w 50 ml Med 01/23/21 15:00 Active Bag] 1 g in 50 ml IV Q24H10 Enoxaparin Sodium [Enoxaparin Sodium] Med 01/23/21 18:00 Active 40 mg SQ 1800 Magnesium Oxide 400 mg [Mag-Ox 400] Med 01/24/21 10:00 Active 400 mg PO DAILY Methylprednis Sod Succ 125 mg* [solu-MEDROL 125 MG] Med 01/23/21 15:00 Active 80 mg IV Q8H NaCl 0.9% 1000 ml [Sodium Chloride 0.9% 1000 ML] 1,000 Med 01/23/21 15:00 Active ml IV 100 mls/hr Nicotine 21 mg [Nicoderm CQ 21 MG] Med 01/23/21 15:30 Active 21 mg TOP Q24H Potassium Chloride 10 Meq Tab* [Klor Con 10 MEQ] Med 01/24/21 10:00 Active 10 meq PO DAILY Oxygen NASAL CANNULA 3.5 lpm RT 01/23/21 14:20 Active Pulse Oximetry .spot check RT 01/23/21 14:08 Active RT Screen per Nursing Assess ONCE RT 01/23/21 11:50 Completed Respiratory Therapy Assessment DAILY RT 01/23/21 14:09 Active Respiratory Therapy Consult ROUTINE RT 01/23/21 14:53 Completed Smoking Cessation Education ONCE RT 01/23/21 11:50 Completed Patient Care Notes (Last 24 hours) 01/24/21 00:50 Nursing Note by Eli Bailey 0020 O2 per N/C applied as per home. pt preparing for bed. Initialized on 01/24/21 00:50 - END OF NOTE 01/23/21 23:33 Nursing Note by Eli Bailey 2315 pt c/o head pain, requesting prn tylenol extra strenth, Dr. Lopez called order recd. Initialized on 01/23/21 23:33 - END OF NOTE Code(s): J44.1 - CHRONIC OBSTRUCTIVE PULMONARY DISEASE W (ACUTE) EXACERBATION (2) Shortness of breath Current Visit: No Status: Acute Code(s): R06.02 - SHORTNESS OF BREATH
[2021-01-24] MEDS: TYLENOL EXTRA STRENGTH 500 MG PO PRN (08:19)
[2021-01-24] MEDS: ROCEPHIN 1 Gm-D5w 50 ml Bag** 1 G/50 ML IVPB IV SCH (09:48)
[2021-01-24] MEDS: Klor Con 10 MEQ PO SCH (09:48)
[2021-01-24] MEDS: MAG-OX 400 PO SCH (09:48)
[2021-01-24] MEDS: Nicoderm CQ 21 MG TOP SCH (10:42)
[2021-01-24] MEDS: Zithromax 500 MG/ 250 ML NaCl Premix 500 MG/250 ML IVPB IV SCH (10:42)
[2021-01-24 10:58] LABS: ALKALINE PHOSPHATASE 81 U/L (38-126); ANION GAP 14.2 MEQ/L (5-15); BLOOD UREA NITROGEN 9 mg/dL (7-17); CHLORIDE 102 mmol/L (98-107); Calcium 9.1 mg/dL (8.4-10.2); Carbon Dioxide 26 mmol/L (22-30); EST GLOMERULAR FILTRATION RATE > 60.0 ML/MIN; Glucose 206 mg/dL (74-106); Potassium 3.9 mmol/L (3.5-5.1); SGOT/AST 21 U/L (14-36); SGPT/ALT 15 U/L (0-35); SODIUM 137 mmol/L (137-145); Total Protein 6.8 g/dL (6.3-8.2)
[2021-01-24] MEDS: ENOXAPARIN SODIUM SQ SCH (17:36)
[2021-01-24 19:09] LABS: Absolute Neutrophil Ct (ANC) 10.93 (1.4-6.9); BASOPHIL % 0.1 % (0.0-0.4); Basophil (Absolute #) 0.01 (0-0.4); Eosinophil (Absolute #) 0 (0-0.5); Hematocrit 34.9 % (35-47); Hemoglobin 10.6 gm/dl (12.0-16.0); Lymphocyte (Absolute #) 0.99 (1.0-4.6); Lymphocytes % 8.1 % (24.0-44.0); Mean Cell Volume 100.6 fl (78-100); Mean Corpuscular Hemoglobin 30.5 pg (26-32); Mean Corpuscular Hgb Concent. 30.4 g/dl (32-36); Mean Platelet Volume 9.9 fl (7.5-11.0); Monocyte (Absolute #) 0.29 (0.0-1.3); Monocytes % 2.4 % (0.0-12.0); Neutrophil % 89.4 % (36.0-66.0); Platelet Count 447 K/mm3 (150-450); Red Blood Count 3.47 M/mm3 (4.1-5.4); Red Cell Distribution Width 13.1 % (11.5-14.0); White Blood Count 12.2 K/mm3 (4.0-10.5)
--- NOTE | 2021-01-25 03:04 | PCM.DS ---
Discharge Summary Date of Admission: 01/23/21 11:11 Admitting Physician: JEREMIAS ANAYA Primary Care Provider: JEREMIAS ANAYA Allergies Allergies morphine Adverse Reaction (Severe, Verified 06/07/19 10:49) Headache Hospital Summary - Hospital Course Hospital Course: Chief Complaint Diagnosis copd exac Allergies Allergy/AdvReac Type Severity Reaction Status Date / Time morphine AdvReac Severe Headache Verified 06/07/19 10:49 Vital Signs (Last 24 hours) Temp Pulse Resp BP Pulse Ox 01/25/21 00:00 98.5 F 73 18 129/64 98 01/24/21 19:25 98.8 F 78 18 133/61 96 01/24/21 19:05 77 16 95 01/24/21 16:00 98.3 F 70 24 149/66 98 01/24/21 14:38 109 H 22 95 01/24/21 12:00 98.1 F 69 24 148/82 97 01/24/21 10:40 72 22 94 L 01/24/21 08:00 98.2 F 65 24 166/86 97 01/24/21 07:00 75 20 97 01/24/21 04:00 97.7 F 86 20 156/71 95 Home Medications Medication Instructions Recorded Confirmed Last Taken Type Magnesium Oxide 400 mg [Mag-Ox 400 mg PO DAILY 01/23/21 01/23/21 Unknown History 400] Potassium Chloride 10 meq PO DAILY 01/23/21 01/23/21 01/16/21 History Current Medications Generic Name Dose Route Start Last Admin Trade Name Freq PRN Reason Stop Dose Admin Acetaminophen 1,000 mg 01/24/21 07:15 01/24/21 08:19 Tylenol Extra Strength 500 Mg PO 02/22/21 22:28 1,000 mg Q6H PRN PRN Administration HEADACHE Albuterol Sulfate 2.5 mg 01/23/21 14:08 Proventil 2.5 Mg/3 Ml Neb IH 02/22/21 14:07 Q4H PRN PRN SHORTNESS OF BREATH/WHEEZING Albuterol/Ipratropium 3 ml 01/23/21 15:00 01/24/21 14:36 Duoneb 0.5-3 Mg/3 Ml Neb IH 02/22/21 14:59 3 ml QIDRT STEFANI Administration Enoxaparin Sodium 40 mg 01/23/21 18:00 01/24/21 17:36 Enoxaparin Sodium SQ 02/22/21 17:59 40 mg 1800 STEFANI Administration Azithromycin 500 mg in 250 mls @ 250 mls/hr 01/23/21 16:00 01/24/21 10:42 Zithromax 500 Mg/ 250 Ml Nacl Premix IV 02/22/21 15:59 250 mls/hr Q24H10 STEFANI Administration Ceftriaxone Sodium/Dextrose 1 g in 50 mls @ 100 mls/hr 01/23/21 15:00 01/24/21 09:48 Rocephin 1 Gm-D5w 50 Ml Bag IV 01/26/21 14:59 100 mls/hr Q24H10 STEFANI Administration Sodium Chloride 1,000 mls @ 100 mls/hr 01/23/21 15:00 01/24/21 18:27 Sodium Chloride 0.9% 1000 Ml IV 02/22/21 14:59 100 mls/hr .Q10H STEFANI Administration Magnesium Oxide 400 mg 01/24/21 10:00 01/24/21 09:48 Mag-Ox 400 PO 02/23/21 09:59 400 mg DAILY STEFANI Administration Methylprednisolone Sodium Succinate 80 mg 01/23/21 15:00 01/24/21 22:36 Solu-Medrol 125 Mg IV 02/22/21 14:59 80 mg Q8H STEFANI Administration Nicotine 21 mg 01/23/21 15:30 01/24/21 10:42 Nicoderm Cq 21 Mg TOP 02/22/21 15:29 21 mg Q24H STEFANI Administration Potassium Chloride 10 meq 01/24/21 10:00 01/24/21 09:48 Klor Con 10 Meq PO 02/23/21 09:59 10 meq DAILY STEFANI Administration Discontinued Medications Generic Name Dose Route Start Last Admin Trade Name Freq PRN Reason Stop Dose Admin Acetaminophen 1,000 mg 01/23/21 22:29 01/23/21 22:35 Tylenol Extra Strength 500 Mg PO 02/22/21 22:28 1,000 mg Q6H PRN Administration HEADACHE Albuterol/Ipratropium Confirm 01/23/21 14:06 Duoneb 0.5-3 Mg/3 Ml Neb Administered 01/23/21 14:07 Dose 3 ml IH .STK-MED ONE Intake & Output (Last 24 hours) 01/22/21 01/23/21 01/24/21 01/25/21 11:59 11:59 11:59 11:59 Intake Total 2378 1967 Output Total 2700 1000 Balance -322 967 Weight 56.7 kg Laboratory Results (Last 24 hours) 01/24/21 01/24/21 01/24/21 21:02 15:56 15:55 WBC RBC Hgb Hct MCV MCH MCHC RDW Plt Count MPV Gran % Eos # (Auto) Absolute Lymphs (auto) Absolute Monos (auto) Lymphocytes % Monocytes % Eosinophils % Basophils % Absolute Granulocytes Basophils # Sodium Potassium Chloride Carbon Dioxide Anion Gap BUN Creatinine Estimated GFR Glucose POC Glucometer 148 H 175 H Hemoglobin A1c 5.13 Calcium Total Bilirubin AST ALT Alkaline Phosphatase Serum Total Protein Albumin 01/24/21 01/24/21 09:40 08:06 WBC 12.2 H RBC 3.47 L Hgb 10.6 L Hct 34.9 L MCV 100.6 H MCH 30.5 MCHC 30.4 L RDW 13.1 Plt Count 447 MPV 9.9 Gran % 89.4 H Eos # (Auto) 0 Absolute Lymphs (auto) 0.99 L Absolute Monos (auto) 0.29 Lymphocytes % 8.1 L Monocytes % 2.4 Eosinophils % 0.0 Basophils % 0.1 Absolute Granulocytes 10.93 H Basophils # 0.01 Sodium 137 Potassium 3.9 Chloride 102 Carbon Dioxide 26 Anion Gap 14.2 BUN 9 Creatinine 0.70 Estimated GFR > 60.0 Glucose 206 H POC Glucometer Hemoglobin A1c Calcium 9.1 Total Bilirubin 0.10 L AST 21 ALT 15 Alkaline Phosphatase 81 Serum Total Protein 6.8 Albumin 4.0 Orders (Last 24 hours) Category Date Time Status POCT Glucose Check ACHS Care 01/24/21 15:43 Active CBC W DIFF Stat Lab 01/24/21 08:06 Completed CMP Routine Lab 01/24/21 09:40 Completed HEMOGLOBIN A1C Stat Lab 01/24/21 15:56 Completed POCT GLUCOSE Stat Lab 01/24/21 15:55 Completed POCT GLUCOSE Stat Lab 01/24/21 21:02 Completed Acetaminophen 500 mg [Tylenol Extra Strength 500 mg* Med 01/24/21 07:15 Active ] 1,000 mg PO Q6H PRN PRN Magnesium Oxide 400 mg [Mag-Ox 400] Med 01/24/21 10:00 Active 400 mg PO DAILY Potassium Chloride 10 Meq Tab* [Klor Con 10 MEQ] Med 01/24/21 10:00 Active 10 meq PO DAILY Patient Care Notes (Last 24 hours) 01/24/21 07:15 (created 01/25/21 01:47) Nursing Note by Carrie Lam Rounded with Dr. Anaya at bedside. Plan of care discussed with patient. Will dc home tomorrow. Pt states she needs Albuterol for her nebulizer. Dr. Anaya stated he will send an order to [facility] Initialized on 01/25/21 01:47 - END OF NOTE - Vitals & Intake/Output Vital Signs: Vital Signs Temperature 98.5 F 01/25/21 00:00 Pulse Rate 73 01/25/21 00:00 Respiratory Rate 18 01/25/21 00:00 Blood Pressure 129/64 01/25/21 00:00 O2 Sat by Pulse Oximetry 98 01/25/21 00:00 Intake & Output: Intake & Output 01/22/21 01/23/21 01/24/21 01/25/21 11:59 11:59 11:59 11:59 Intake Total 2378 1967 Output Total 2700 1000 Balance -322 967 Weight 56.7 kg - Lab Result Diagrams: 01/24/21 08:06 01/24/21 09:40 Lab Results-Last 24 Hrs: Lab Results-Last 24 Hours 01/24/21 01/24/21 01/24/21 Range/Units 08:06 09:40 15:55 WBC 12.2 H (4.0-10.5) K/mm3 RBC 3.47 L (4.1-5.4) M/mm3 Hgb 10.6 L (12.0-16.0) gm/dl Hct 34.9 L (35-47) % MCV 100.6 H (78-100) fl MCH 30.5 (26-32) pg MCHC 30.4 L (32-36) g/dl RDW 13.1 (11.5-14.0) % Plt Count 447 (150-450) K/mm3 MPV 9.9 (7.5-11.0) fl Gran % 89.4 H (36.0-66.0) % Eos # (Auto) 0 (0-0.5) Absolute Lymphs (auto) 0.99 L (1.0-4.6) Absolute Monos (auto) 0.29 (0.0-1.3) Lymphocytes % 8.1 L (24.0-44.0) % Monocytes % 2.4 (0.0-12.0) % Eosinophils % 0.0 (0.00-5.0) % Basophils % 0.1 (0.0-0.4) % Absolute Granulocytes 10.93 H (1.4-6.9) Basophils # 0.01 (0-0.4) Sodium 137 (137-145) mmol/L Potassium 3.9 (3.5-5.1) mmol/L Chloride 102 (98-107) mmol/L Carbon Dioxide 26 (22-30) mmol/L Anion Gap 14.2 (5-15) MEQ/L BUN 9 (7-17) mg/dL Creatinine 0.70 (0.52-1.04) mg/dL Estimated GFR > 60.0 ML/MIN Glucose 206 H (74-106) mg/dL POC Glucometer 175 H (74 to 106) mg/dL Hemoglobin A1c (4.5-6.0) % Calcium 9.1 (8.4-10.2) mg/dL Total Bilirubin 0.10 L (0.2-1.3) mg/dL AST 21 (14-36) U/L ALT 15 (0-35) U/L Alkaline Phosphatase 81 (38-126) U/L Serum Total Protein 6.8 (6.3-8.2) g/dL Albumin 4.0 (3.5-5.0) g/dL 01/24/21 01/24/21 Range/Units 15:56 21:02 WBC (4.0-10.5) K/mm3 RBC (4.1-5.4) M/mm3 Hgb (12.0-16.0) gm/dl Hct (35-47) % MCV (78-100) fl MCH (26-32) pg MCHC (32-36) g/dl RDW (11.5-14.0) % Plt Count (150-450) K/mm3 MPV (7.5-11.0) fl Gran % (36.0-66.0) % Eos # (Auto) (0-0.5) Absolute Lymphs (auto) (1.0-4.6) Absolute Monos (auto) (0.0-1.3) Lymphocytes % (24.0-44.0) % Monocytes % (0.0-12.0) % Eosinophils % (0.00-5.0) % Basophils % (0.0-0.4) % Absolute Granulocytes (1.4-6.9) Basophils # (0-0.4) Sodium (137-145) mmol/L Potassium (3.5-5.1) mmol/L Chloride (98-107) mmol/L Carbon Dioxide (22-30) mmol/L Anion Gap (5-15) MEQ/L BUN (7-17) mg/dL Creatinine (0.52-1.04) mg/dL Estimated GFR ML/MIN Glucose (74-106) mg/dL POC Glucometer 148 H (74 to 106) mg/dL Hemoglobin A1c 5.13 (4.5-6.0) % Calcium (8.4-10.2) mg/dL Total Bilirubin (0.2-1.3) mg/dL AST (14-36) U/L ALT (0-35) U/L Alkaline Phosphatase (38-126) U/L Serum Total Protein (6.3-8.2) g/dL Albumin (3.5-5.0) g/dL - Radiology Exams Ordered Rad Exams-Entire Visit: Radiology Procedures Category Date Time Status CHEST 2 VIEWS (PA AND LAT) Routine Exams 01/23/21 15:14 Completed - Procedures and Test Procedures and Tests throughout Hospitalization: Therapy Orders & Screens 01/23/21 11:50 RT Screen per Nursing Assess ONCE Comment: Protocol Order Physician Instructions: Greater than 3 points order RT Admission Screen Reason For Exam: Triggered on Admission Diagnosis: copd exac Diagnosis: copd exac Pneumonia: No Home O2: Yes Asthma: No CHF: No Home CPAP/BIPAP: No Home Nebs/MDI: Yes Total Points: 10 Smoking Cessation Education ONCE Comment: Diagnosis: copd exac Smoking Status: Current every day smoker How long have you smoked: years Have you smoked in the past 12 months: Yes Approximately how many cigarettes per day: 1 PACK A DAY Do you dip or chew tobacco: No 01/23/21 14:09 Respiratory Therapy Assessment DAILY Comment: Diagnosis: copd exac 01/23/21 14:20 Oxygen NASAL CANNULA 3.5 lpm Comment: Diagnosis: copd exac 01/23/21 14:53 Respiratory Therapy Consult ROUTINE Comment: Reason For Exam: Diagnosis: copd exac Discharge Exam General Appearance: no apparent distress, alert Neurologic Exam: alert, oriented x 3, cooperative, normal mood/affect, nml cerebellar function, sensation nml, No motor deficits Eye Exam: PERRL, EOMI, eyes nml inspection Ears, Nose, Throat Exam: normal ENT inspection, pharynx normal, moist mucous membranes Neck Exam: normal inspection, non-tender, supple, full range of motion Respiratory Exam: diminished breath sounds, wheezing, No respiratory distress Cardiovascular Exam: regular rate/rhythm, normal heart sounds Gastrointestinal/Abdomen Exam: soft, No tenderness, No mass Pelvic Exam: deferred Rectal Exam: deferred Back Exam: normal inspection, normal range of motion, No CVA tenderness, No vertebral tenderness Extremity Exam: normal inspection, normal range of motion Skin Exam: normal color, warm, dry Final Diagnosis/Problem List - Final Discharge Diagnosis/Problem (1) COPD exacerbation Current Visit: Yes Status: Resolved Priority: High Assessment & Plan: Last Vital Signs Temp 98.5 F 01/25/21 00:00 Pulse 73 01/25/21 00:00 Resp 18 01/25/21 00:00 BP 129/64 01/25/21 00:00 Pulse Ox 98 01/25/21 00:00 Allergies morphine Adverse Reaction (Severe, Verified 06/07/19 10:49) Headache Active Medications Acetaminophen (Tylenol Extra Strength 500 Mg) 1,000 mg PO Q6H PRN PRN PRN Reason: HEADACHE Stop: 02/22/21 22:28 Last Admin: 01/24/21 08:19 Dose: 1,000 mg Documented by: Albuterol Sulfate (Proventil 2.5 Mg/3 Ml Neb) 2.5 mg IH Q4H PRN PRN PRN Reason: SHORTNESS OF BREATH/WHEEZING Stop: 02/22/21 14:07 Albuterol/Ipratropium (Duoneb 0.5-3 Mg/3 Ml Neb) 3 ml IH QIDRT [facility] Stop: 02/22/21 14:59 Last Admin: 01/24/21 14:36 Dose: 3 ml Documented by: Enoxaparin Sodium (Enoxaparin Sodium) 40 mg SQ 1800 [facility] Stop: 02/22/21 17:59 Last Admin: 01/24/21 17:36 Dose: 40 mg Documented by: Azithromycin (Zithromax 500 Mg/ 250 Ml Nacl Premix) 500 mg in 250 mls @ 250 mls/hr IV Q24H10 [facility] Stop: 02/22/21 15:59 Last Admin: 01/24/21 10:42 Dose: 250 mls/hr Documented by: Ceftriaxone Sodium/Dextrose (Rocephin 1 Gm-D5w 50 Ml Bag) 1 g in 50 mls @ 100 mls/hr IV Q24H10 [facility] Stop: 01/26/21 14:59 Last Admin: 01/24/21 09:48 Dose: 100 mls/hr Documented by: Sodium Chloride (Sodium Chloride 0.9% 1000 Ml) 1,000 mls @ 100 mls/hr IV .Q10H [facility] Stop: 02/22/21 14:59 Last Admin: 01/24/21 18:27 Dose: 100 mls/hr Documented by: Magnesium Oxide (Mag-Ox 400) 400 mg PO DAILY [facility] Stop: 02/23/21 09:59 Last Admin: 01/24/21 09:48 Dose: 400 mg Documented by: Methylprednisolone Sodium Succinate (Solu-Medrol 125 Mg) 80 mg IV Q8H [facility] Stop: 02/22/21 14:59 Last Admin: 01/24/21 22:36 Dose: 80 mg Documented by: Nicotine (Nicoderm Cq 21 Mg) 21 mg TOP Q24H [facility] Stop: 02/22/21 15:29 Last Admin: 01/24/21 10:42 Dose: 21 mg Documented by: Potassium Chloride (Klor Con 10 Meq) 10 meq PO DAILY [facility] Stop: 02/23/21 09:59 Last Admin: 01/24/21 09:48 Dose: 10 meq Documented by: Intake & Output 01/24/21 01/25/21 11:59 11:59 Intake Total 2378 1967 Output Total 2700 1000 Balance -322 967 Orders 01/24/21 07:15 Acetaminophen 500 mg [Tylenol Extra Strength 500 mg] 1,000 mg PO Q6H PRN PRN 01/24/21 10:00 Magnesium Oxide 400 mg [Mag-Ox 400] 400 mg PO DAILY Potassium Chloride 10 Meq Tab* [Klor Con 10 MEQ] 10 meq PO DAILY 01/24/21 15:43 POCT Glucose Check ACHS Lab Tests 01/24/21 01/24/21 01/24/21 08:06 09:40 15:55 WBC 12.2 H RBC 3.47 L Hgb 10.6 L Hct 34.9 L MCV 100.6 H MCH 30.5 MCHC 30.4 L RDW 13.1 Plt Count 447 MPV 9.9 Gran % 89.4 H Eos # (Auto) 0 Absolute Lymphs (auto) 0.99 L Absolute Monos (auto) 0.29 Lymphocytes % 8.1 L Monocytes % 2.4 Eosinophils % 0.0 Basophils % 0.1 Absolute Granulocytes 10.93 H Basophils # 0.01 Sodium 137 Potassium 3.9 Chloride 102 Carbon Dioxide 26 Anion Gap 14.2 BUN 9 Creatinine 0.70 Estimated GFR > 60.0 Glucose 206 H POC Glucometer 175 H Hemoglobin A1c Calcium 9.1 Total Bilirubin 0.10 L AST 21 ALT 15 Alkaline Phosphatase 81 Serum Total Protein 6.8 Albumin 4.0 01/24/21 01/24/21 15:56 21:02 WBC RBC Hgb Hct MCV MCH MCHC RDW Plt Count MPV Gran % Eos # (Auto) Absolute Lymphs (auto) Absolute Monos (auto) Lymphocytes % Monocytes % Eosinophils % Basophils % Absolute Granulocytes Basophils # Sodium Potassium Chloride Carbon Dioxide Anion Gap BUN Creatinine Estimated GFR Glucose POC Glucometer 148 H Hemoglobin A1c 5.13 Calcium Total Bilirubin AST ALT Alkaline Phosphatase Serum Total Protein Albumin Code(s): J44.1 - CHRONIC OBSTRUCTIVE PULMONARY DISEASE W (ACUTE) EXACERBATION (2) Shortness of breath Current Visit: Yes Status: Resolved Code(s): R06.02 - SHORTNESS OF BREATH - Discharge Discharge Date: 01/25/21 Disposition: Home, Self-Care Condition: Stable Prescriptions: New Methylprednisolone Packet [Medrol Dosepack] 4 mg PO UD #21 packet Azithromycin 250 mg [Zithromax 250 MG TABLET] 250 mg PO ZPACK #6 tablet Continue Magnesium Oxide 400 mg [Mag-Ox 400] 400 mg PO DAILY Potassium Chloride 10 meq PO DAILY Albuterol 2.5 mg/3 ml Neb [Proventil 2.5 mg/3 ml Neb] 2.5 mg IH QID 30 Days #120 neb Instructions: Exacerbation of COPD (DC), Chronic Obstructive Pulmonary Disease (COPD) (DC), Risk Factors for COPD, Breathing Exercises, Medicines for Chronic Obstructive Pulmonary Disease (COPD), Chronic Obstructive Pulmonary Disease (COPD), Including Emphysema Follow up with: JEREMIAS ANAYA MD [Primary Care Provider] - 5 Days
[2021-01-25] MEDS: Sodium Chloride 0.9% 1000 ML 1,000 ML IV SCH (03:57)
[2021-01-25] MEDS: DUONEB 0.5-3 MG/3 ml Neb IH SCH (05:39)
[2021-01-25] MEDS: solu-MEDROL 125 MG IV SCH (06:27)
[2021-01-25 07:26] VITALS: BP 159/91; PULSE 68; O2SAT 99
[2021-01-25] MEDS: TYLENOL EXTRA STRENGTH 500 MG PO PRN (08:02)
[2021-01-25] MEDS: Zithromax 500 MG/ 250 ML NaCl Premix 500 MG/250 ML IVPB IV SCH (08:14)
[2021-01-25] MEDS: ROCEPHIN 1 Gm-D5w 50 ml Bag** 1 G/50 ML IVPB IV SCH (09:20)
[2021-01-25] MEDS: MAG-OX 400 PO SCH (09:24)
[2021-01-25] MEDS: Klor Con 10 MEQ PO SCH (09:24)
== END 2021-01-25 10:25 | disposition home or self-care (01) ==
LOC: MED SURG 11:11
PROVIDERS: ADMIT General Practice; ATTEND General Practice
DX: J44.1 Chronic obstructive pulmonary disease with (acute) exacerbation (principal); Z79.899 Other long term (current) drug therapy; Z20.828 Contact with and (suspected) exposure to other viral communicable diseases
CPT/HCPCS: 36415; 71046; 80053; 82947; 83036; 85025; 93268; 94640; 94760; G0378; U0003; J0456; J0696; J1650; J2930; A9270-GY

== ENCOUNTER 2022-06-23 20:38 | Observation (INO) | payer MEDICARE ==
[2022-06-23] MEDS ORDERED: TORAdol 30 mg Injection IV ONE (21:53)
[2022-06-23] MEDS ORDERED: Sodium Chloride 0.9% 1000 ML 1,000 ML ONE (21:58)
[2022-06-23] MEDS ORDERED: TORAdol 30 mg Injection ONE (21:58)
[2022-06-23 22:00] LABS: Absolute Neutrophil Ct (ANC) 11.96 x10^3/uL (1.4-6.9); Basophil (Absolute #) 0.06 x10^3/uL (0-0.4); Eosinophil (Absolute #) 0 x10^3/uL (0-0.5); Hematocrit 37.2 % (35-47); Hemoglobin 11.9 g/dL (12.0-16.0); Mean Cell Volume 96.6 fL (78-100); Mean Corpuscular Hemoglobin 30.9 pg (26-32); Monocytes % 7.6 % (0.0-12.0); Neutrophil % 82.7 % (36.0-66.0); Platelet Count 319 x10^3/uL (150-450); Red Blood Count 3.85 x10^6/uL (4.1-5.4); Red Cell Distribution Width 13.5 % (11.5-14.0); White Blood Count 14.5 x10^3/uL (4.0-10.5)
[2022-06-23] MEDS ORDERED: Sodium Chloride 0.9% 1000 ML 1,000 ML IV SCH (22:00)
[2022-06-23 22:16] LABS: ALBUMIN 4.2 g/dL (3.5-5.0); ALKALINE PHOSPHATASE 88 U/L (38-126); ANION GAP 12.8 MEQ/L (5-15); BLOOD UREA NITROGEN 9 mg/dL (7-17); CHLORIDE 99 mmol/L (98-107); Calcium 9.2 mg/dL (8.4-10.2); Carbon Dioxide 25 mmol/L (22-30); Creatinine 1 0.67 mg/dL (0.52-1.04); EST GLOMERULAR FILTRATION RATE > 60.0 ML/MIN; Glucose 120 mg/dL (74-106); LIPASE 21 U/L (23-300); NT PRO BNP 174 pg/mL (0-900); Potassium 3.6 mmol/L (3.5-5.1); SGOT/AST 17 U/L (14-36); SGPT/ALT 12 U/L (0-35); SODIUM 133 mmol/L (137-145)
[2022-06-23 22:18] LABS: Appearance CLEAR (CLEAR)
[2022-06-23 22:19] LABS: Bilirubin SMALL (NEGATIVE); Dipstick done @ ? MAIN LAB; Glucose NEGATIVE (NEGATIVE); Ketones NEGATIVE (NEGATIVE); Nitrite NEGATIVE (NEGATIVE); Ph 5.5 (5-6); Protein,Urine Dip 100 (Negative); RBC SMALL Ery/ul (0-5); Specific Gravity >=1.030 (1.005-1.025); Urobilinogen 1 mg/dL (0-1)
--- NOTE | 2022-06-23 22:19 | ERPHSYRPT ---
- History of Present Illness Time Seen by Provider: 06/23/22 21:00 Source: patient Exam Limitations: no limitations Patient Subjective Stated Complaint: I'm just hurting everywhere, my chest, my abd, my shoulder blades and I'm weak and short of breath. Triage Nursing Assessment: Pt ambulated back to ER without diff, daughter at bedside. Pt is alert and oriented x3, cooperative, but is a poor historian. Pt c/o hiatal hernia pain under the ribs on the rt side and then goes up into the chest and shoulder blades. Abd soft with active bs x4 quad, tender on palpation. Pt has had some indigestion and nausea today, denies any vomiting or diarrhea. Physician History: Patient is 72-year-old female presents to her ED with her daughter for evaluation of abdominal pain. Patient states she has been experiencing a uma pain with indigestion and nausea for 1 day. Patient occasionally feels a shooting sensation into her chest and shoulder blades. No trauma. No fever. No rash. Symptoms are constant. Symptoms are moderate in intensity. No specific worsening improving factors. Patient voices no other complaints or concerns at this time. Portions of this note were created with voice recognition technology. There may be grammatical, spelling, punctuation or sound alike errors Timing/Duration: today Severity: moderate Modifying Factors: Improves With: nothing Associated Symptoms: denies symptoms Allergies/Adverse Reactions: morphine Adverse Reaction (Severe, Verified 06/07/19 10:49) Headache prednisone Adverse Reaction (Severe, Verified 06/23/22 21:14) Home Medications: Albuterol 8 gm Mdi Hfa [Ventolin Hfa MDI] 2 puffs IH Q4-6HPRN PRN 06/23/22 [History] Fluticasone/Umeclidin/Vilanter [Trelegy Ellipta 100-62.5-25] 1 puff IH DAILY [History] Hx Tetanus, Diphtheria Vaccination/Date Given: No Hx Influenza Vaccination/Date Given: No Hx Pneumococcal Vaccination/Date Given: No Immunizations Up to Date: No Travel Risk - International Travel Have you traveled outside of the country in past 3 weeks: No - Coronavirus Screening Are you exhibiting any of the following symptoms?: Yes Symptoms: Fever, Shortness of Breath, Headaches/Body Aches/Fatigue Close contact with a COVID-19 positive Pt in past 14-21 Days: No - Vaccine Status Have you recieved a Covid-19 vaccination: Yes Box Tender: Moderna - Vaccination Dates Date of 2cond Vaccination (if applicable): . - Review of Systems Constitutional: No Symptoms, No Fever, No Chills Eyes: No Symptoms Ears, Nose, & Throat: No Symptoms Respiratory: No Symptoms, No Cough, No Dyspnea Cardiac: No Symptoms, No Chest Pain, No Edema, No Syncope Abdominal/Gastrointestinal: No Symptoms, No Abdominal Pain, No Nausea, No Vomiting, No Diarrhea Genitourinary Symptoms: No Symptoms, No Dysuria Musculoskeletal: No Symptoms, No Back Pain, No Neck Pain Skin: No Symptoms, No Rash Neurological: No Symptoms, No Dizziness, No Focal Weakness, No Sensory Changes Psychological: No Symptoms Endocrine: No Symptoms Hematologic/Lymphatic: No Symptoms Immunological/Allergic: No Symptoms All Other Systems: Reviewed and Negative - Past Medical History Pertinent Past Medical History: Yes Neurological History: No Pertinent History ENT History: Cataracts Cardiac History: No Pertinent History Respiratory History: Bronchitis, COPD, Pneumonia Endocrine Medical History: No Pertinent History Musculoskeletal History: Arthritis GI Medical History: Hernia History: No Pertinent History Psycho-Social History: Panic Disorder Female Reproductive Disorders: No Pertinent History - Past Surgical History Past Surgical History: Yes Neuro Surgical History: No Pertinent History Cardiac: No Pertinent History Respiratory: No Pertinent History Gastrointestinal: Appendectomy Genitourinary: No Pertinent History Musculoskeletal: Orthopedic Surgery Female Surgical History: Section Other Surgical History: hand surg - Social History Smoking Status: Current every day smoker How long have you smoked: 55 years Exposure to second hand smoke: Yes Drug Use: none Patient Lives Alone: No - Nursing Vital Signs Nursing Vital Signs: Initial Vital Signs Temperature 100.2 F 06/23/22 20:55 Pulse Rate 125 H 06/23/22 20:55 Respiratory Rate 20 06/23/22 20:55 Blood Pressure 129/90 06/23/22 20:55 O2 Sat by Pulse Oximetry 97 06/23/22 20:55 Pain Scale Pain Intensity 3 - Physical Exam General Appearance: no apparent distress, alert Eye Exam: PERRL/EOMI, eyes nml inspection Ears, Nose, Throat Exam: normal ENT inspection, TMs normal, pharynx normal, moist mucous membranes Neck Exam: normal inspection, non-tender, supple, full range of motion Respiratory Exam: normal breath sounds, lungs clear, No respiratory distress Cardiovascular Exam: regular rate/rhythm, normal heart sounds, normal peripheral pulses Gastrointestinal/Abdomen Exam: soft, normal bowel sounds, No tenderness, No mass Back Exam: normal inspection, normal range of motion, No CVA tenderness, No vertebral tenderness Extremity Exam: normal inspection, normal range of motion, pelvis stable Neurologic Exam: alert, oriented x 3, cooperative, normal mood/affect, nml cerebellar function, nml station & gait, sensation nml, No motor deficits Skin Exam: normal color, warm, dry, No rash Lymphatic Exam: No adenopathy SpO2 Interpretation: normal SpO2: 92 O2 Delivery: Room Air - Course Nursing assessment & vital signs reviewed: Yes EKG Interpreted by Me: RATE ([id number]), Sinus Tach, NORMAL AXIS, NORMAL INTERVALS - CT Exams Abdomen/Pelvis CT Interpretation: Tele-radiologist Report (Diffuse atherosclerotic irregularity and calcification of the abdominal aorta moderate proximal celiac artery stenosis and moderate to severe proximal SMA stenosis moderate proximal left renal artery stenosis 1.4 x 1.0 cm posterior pancreatic tail cyst, pseudocyst or cystic lesion. Incidental small) Ordered Tests: Active Orders 24 hr Category Date Time Status Bail Bondsman STAT Care 06/23/22 21:50 Active EKG-ER Only STAT Care 06/23/22 21:50 Active IV Insertion STAT Care 06/23/22 21:50 Active Pulse Oximetry (ED) STAT Care 06/23/22 21:50 Active CTA ABD/PEL W AND/OR W/O CONTR [CT] Stat Exams 06/23/22 22:35 Taken CTA CHEST W AND/OR WO [CT] Stat Exams 06/23/22 22:35 Taken BLOOD CULTURE Stat Lab 06/24/22 00:55 Ordered CBC W DIFF Stat Lab 06/23/22 21:58 Completed CMP Stat Lab 06/23/22 21:58 Completed CULTURE,URINE Stat Lab 06/23/22 21:54 Received D-DIMER QUANTITATIVE Stat Lab 06/23/22 21:58 Completed LIPASE Stat Lab 06/23/22 21:58 Completed Lactic Acid Stat Lab 06/24/22 01:00 Ordered NT PRO BNP Stat Lab 06/23/22 21:58 Completed PROCALCITONIN Stat Lab 06/24/22 Ordered TROPONIN Q4H Lab 06/23/22 21:58 Completed TROPONIN Q4H Lab 06/24/22 02:00 Ordered TROPONIN Q4H Lab 06/24/22 06:00 Ordered UA W/RFX CULTURE Stat Lab 06/23/22 21:54 Completed Transfer Order Routine Transfer 06/24/22 Ordered Medication Summary Generic Name Dose Route Start Last Admin Trade Name Yeyo PRN Reason Stop Dose Admin Sodium Chloride 1,000 mls @ 100 mls/hr 06/23/22 22:00 06/23/22 22:01 Sodium Chloride 0.9% 1000 Ml IV 07/23/22 21:59 100 mls/hr .Q10H STEFANI Administration Azithromycin 500 mg in 250 mls @ 250 mls/hr 06/24/22 00:51 Zithromax 500 Mg/ 250 Ml Nacl Premix IV 06/24/22 01:50 STAT STA Ceftriaxone Sodium/Dextrose 2 g in 50 mls @ 100 mls/hr 06/24/22 00:52 Rocephin 2 Gm-D5w 50ml Bag IV 06/24/22 01:21 STAT STA Discontinued Medications Generic Name Dose Route Start Last Admin Trade Name Yeyo PRN Reason Stop Dose Admin Azithromycin Confirm 06/24/22 01:04 Zithromax 500 Mg/ 250 Ml Nacl Premix Administered 06/24/22 01:05 Dose 500 mg in 250 mls @ ud IV .STK-MED ONE Ceftriaxone Sodium/Dextrose Confirm 06/24/22 01:04 Rocephin 2 Gm-D5w 50ml Bag Administered 06/24/22 01:05 Dose 2 g in 50 mls @ ud IV .STK-MED ONE Ketorolac Tromethamine 30 mg 06/23/22 21:53 06/23/22 22:01 Ketorolac Tromethamine 30 Mg/Ml Inj IV 06/23/22 21:54 30 mg STAT ONE Administration Ketorolac Tromethamine Confirm 06/23/22 21:58 Ketorolac Tromethamine 30 Mg/Ml Inj Administered 06/23/22 21:59 Dose 30 mg .ROUTE .STK-MED ONE Lab/Rad Data: Laboratory Result Diagrams 06/23/22 21:58 06/23/22 21:58 Laboratory Results 06/23/22 06/23/22 06/23/22 Range/Units 22:28 21:58 21:58 WBC (4.0-10.5) x10^3/uL RBC (4.1-5.4) x10^6/uL Hgb (12.0-16.0) g/dL Hct (35-47) % MCV (78-100) fL MCH (26-32) pg MCHC (32-36) g/dL RDW (11.5-14.0) % Plt Count (150-450) x10^3/uL MPV (7.5-11.0) fL Gran % (36.0-66.0) % Immature Gran % (Auto) (0.00-0.4) % Nucleat RBC Rel Count (0.00-0.1) % Eos # (Auto) (0-0.5) x10^3/uL Immature Gran # (Auto) (0.00-0.03) x10^3u/L Absolute Lymphs (auto) (1.0-4.6) x10^3/uL Absolute Monos (auto) (0.0-1.3) x10^3/uL Absolute Nucleated RBC (0.00-0.01) x10^3u/L Lymphocytes % (24.0-44.0) % Monocytes % (0.0-12.0) % Eosinophils % (0.00-5.0) % Basophils % (0.0-0.4) % Absolute Granulocytes (1.4-6.9) x10^3/uL Basophils # (0-0.4) x10^3/uL D-Dimer 0.35 (0.0-0.50) mg/L Sodium (137-145) mmol/L Potassium (3.5-5.1) mmol/L Chloride (98-107) mmol/L Carbon Dioxide (22-30) mmol/L Anion Gap (5-15) MEQ/L BUN (7-17) mg/dL Creatinine (0.52-1.04) mg/dL Estimated GFR ML/MIN Glucose (74-106) mg/dL Calcium (8.4-10.2) mg/dL Total Bilirubin (0.2-1.3) mg/dL AST (14-36) U/L ALT (0-35) U/L Alkaline Phosphatase (38-126) U/L Troponin I < 0.012 (0.000-0.034) ng/mL NT-Pro-B Natriuret Pep (0-900) pg/mL Serum Total Protein (6.3-8.2) g/dL Albumin (3.5-5.0) g/dL Lipase (23-300) U/L Urinalys Dipstick Clnc Urine Color (YELLOW) Urine Appearance (CLEAR) Urine pH (5-6) Ur Specific [place] (1.005-1.025) POC Urine Protein Conf (Negative) Urine Ketones (NEGATIVE) Urine Nitrite (NEGATIVE) Urine Bilirubin (NEGATIVE) Urine Urobilinogen (0-1) mg/dL Urine Leukocytes (NEGATIVE) Urine WBC (Auto) (0-5) /HPF Urine RBC (Auto) (0-2) /HPF U Epithel Cells (Auto) (FEW) /HPF Urine Bacteria (Auto) (NEGATIVE) /HPF Urine RBC (0-5) Francis/ul Urine Mucus (Auto) (NEGATIVE) /HPF Ur Culture Indicated? Urine Glucose (NEGATIVE) mg/dL Influenza Type A Ag NEGATIVE (NEGATIVE) Influenza Type B Ag NEGATIVE (NEGATIVE) RSV (PCR) NEGATIVE (Negative) SARS-CoV-2 (PCR) NEGATIVE (NEGATIVE) 06/23/22 06/23/22 06/23/22 Range/Units 21:58 21:58 21:54 WBC 14.5 H (4.0-10.5) x10^3/uL RBC 3.85 L (4.1-5.4) x10^6/uL Hgb 11.9 L (12.0-16.0) g/dL Hct 37.2 (35-47) % MCV 96.6 (78-100) fL MCH 30.9 (26-32) pg MCHC 32.0 (32-36) g/dL RDW 13.5 (11.5-14.0) % Plt Count 319 (150-450) x10^3/uL MPV 10.0 (7.5-11.0) fL Gran % 82.7 H (36.0-66.0) % Immature Gran % (Auto) 0.3 (0.00-0.4) % Nucleat RBC Rel Count 0.0 (0.00-0.1) % Eos # (Auto) 0 (0-0.5) x10^3/uL Immature Gran # (Auto) 0.05 H (0.00-0.03) x10^3u/L Absolute Lymphs (auto) 1.30 (1.0-4.6) x10^3/uL Absolute Monos (auto) 1.10 (0.0-1.3) x10^3/uL Absolute Nucleated RBC 0.00 (0.00-0.01) x10^3u/L Lymphocytes % 9.0 L (24.0-44.0) % Monocytes % 7.6 (0.0-12.0) % Eosinophils % 0.0 (0.00-5.0) % Basophils % 0.4 (0.0-0.4) % Absolute Granulocytes 11.96 H (1.4-6.9) x10^3/uL Basophils # 0.06 (0-0.4) x10^3/uL D-Dimer (0.0-0.50) mg/L Sodium 133 L (137-145) mmol/L Potassium 3.6 (3.5-5.1) mmol/L Chloride 99 (98-107) mmol/L Carbon Dioxide 25 (22-30) mmol/L Anion Gap 12.8 (5-15) MEQ/L BUN 9 (7-17) mg/dL Creatinine 0.67 (0.52-1.04) mg/dL Estimated GFR > 60.0 ML/MIN Glucose 120 H (74-106) mg/dL Calcium 9.2 (8.4-10.2) mg/dL Total Bilirubin 0.60 (0.2-1.3) mg/dL AST 17 (14-36) U/L ALT 12 (0-35) U/L Alkaline Phosphatase 88 (38-126) U/L Troponin I (0.000-0.034) ng/mL NT-Pro-B Natriuret Pep 174 (0-900) pg/mL Serum Total Protein 7.0 (6.3-8.2) g/dL Albumin 4.2 (3.5-5.0) g/dL Lipase 21 L (23-300) U/L Urinalys Dipstick Clnc MAIN LAB Urine Color YELLOW (YELLOW) Urine Appearance CLEAR (CLEAR) Urine pH 5.5 (5-6) Ur Specific [place] >=1.030 A (1.005-1.025) POC Urine Protein Conf 100 A (Negative) Urine Ketones NEGATIVE (NEGATIVE) Urine Nitrite NEGATIVE (NEGATIVE) Urine Bilirubin SMALL A (NEGATIVE) Urine Urobilinogen 1 A (0-1) mg/dL Urine Leukocytes NEGATIVE (NEGATIVE) Urine WBC (Auto) NONE (0-5) /HPF Urine RBC (Auto) 0-2 (0-2) /HPF U Epithel Cells (Auto) RARE (FEW) /HPF Urine Bacteria (Auto) NONE (NEGATIVE) /HPF Urine RBC SMALL A (0-5) Francis/ul Urine Mucus (Auto) SLIGHT A (NEGATIVE) /HPF Ur Culture Indicated? YES Urine Glucose NEGATIVE (NEGATIVE) mg/dL Influenza Type A Ag (NEGATIVE) Influenza Type B Ag (NEGATIVE) RSV (PCR) (Negative) SARS-CoV-2 (PCR) (NEGATIVE) - Progress Progress: improved Progress Note: Patient reassessed. She feels better. Patient states she feels too weak to go home. Work-up reveals bilateral pneumonia with a leukocytosis. Blood cultures procalcitonin and lactic acid ordered. Patient received Rocephin and azithromycin. Plan of care discussed with patient. She agrees to admission at [facility]. Case discussed with Dr. Sanders who accepts admission to observation. Portions of this note were created with voice recognition technology. 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
[2022-06-23 22:21] LABS: Epithelial Cells RARE /HPF (FEW); Mucus SLIGHT /HPF (NEGATIVE); RBC 0-2 /HPF (0-2)
[2022-06-23 22:32] LABS: Urine Cultured Indicated? YES
[2022-06-23 23:08] LABS: INFLUENZA A NEGATIVE (NEGATIVE); INFLUENZA B NEGATIVE (NEGATIVE); RESPIRATORY SYNCTIAL VIRUS NEGATIVE (Negative); SARS-CoV-2 Xpert Express NEGATIVE (NEGATIVE)
[2022-06-24] MEDS ORDERED: Zithromax 500 MG/ 250 ML NaCl Premix 500 MG/250 ML IVPB IV STA (00:51)
[2022-06-24] MEDS ORDERED: ROCEPHIN 2 Gm-D5w 50ML BAG** 2 G/50 ML IVPB IV STA (00:52)
[2022-06-24] MEDS ORDERED: ROCEPHIN 2 Gm-D5w 50ML BAG** 2 G/50 ML IVPB IV ONE (01:04)
[2022-06-24] MEDS ORDERED: Zithromax 500 MG/ 250 ML NaCl Premix 500 MG/250 ML IVPB IV ONE (01:04)
[2022-06-24] MEDS ORDERED: TYLENOL 325 MG PO PRN (02:27)
[2022-06-24 06:24] LABS: Absolute Neutrophil Ct (ANC) 7.17 x10^3/uL (1.4-6.9); Basophil (Absolute #) 0.03 x10^3/uL (0-0.4); Eosinophil % 0.1 % (0.00-5.0); Eosinophil (Absolute #) 0.01 x10^3/uL (0-0.5); Hematocrit 36.9 % (35-47); Hemoglobin 11.6 g/dL (12.0-16.0); Lymphocytes % 13.4 % (24.0-44.0); Mean Cell Volume 98.7 fL (78-100); Mean Corpuscular Hgb Concent. 31.4 g/dL (32-36); Mean Platelet Volume 9.5 fL (7.5-11.0); Monocyte (Absolute #) 0.54 x10^3/uL (0.0-1.3); Platelet Count 281 x10^3/uL (150-450); Red Blood Count 3.74 x10^6/uL (4.1-5.4); Red Cell Distribution Width 13.4 % (11.5-14.0)
[2022-06-24 06:43] LABS: ALBUMIN 3.7 g/dL (3.5-5.0); ALKALINE PHOSPHATASE 68 U/L (38-126); ANION GAP 9.2 MEQ/L (5-15); BLOOD UREA NITROGEN 11 mg/dL (7-17); CHLORIDE 103 mmol/L (98-107); Calcium 8.3 mg/dL (8.4-10.2); Carbon Dioxide 27 mmol/L (22-30); Creatinine 1 0.76 mg/dL (0.52-1.04); EST GLOMERULAR FILTRATION RATE > 60.0 ML/MIN; Glucose 89 mg/dL (74-106); Potassium 3.5 mmol/L (3.5-5.1); SGOT/AST 17 U/L (14-36); SGPT/ALT 12 U/L (0-35); SODIUM 135 mmol/L (137-145); Total Protein 6.8 g/dL (6.3-8.2)
[2022-06-24] MEDS: PROVENTIL 2.5 MG/3 ML NEB IH SCH ×4 (07:15→18:38)
[2022-06-24] MEDS: Sodium Chloride 0.9% 1000 ML 1,000 ML IV SCH (07:43)
--- NOTE | 2022-06-24 08:59 | XRAY ---
Indication: Chest and back pain. Nausea. Aortic dissection. Conventional contrast enhanced CTA chest performed using 100 cc Isovue 370 contrast. Two-dimensional sagittal and coronal reformatted images obtained. Additional 3-dimensional reformatted images obtained using a separate workstation. Comparison: None Thoracic aorta is mildly atherosclerotic without aneurysm/dissection. Aortic arch demonstrates anatomic variant for bovine arch. Heart not enlarged. No central pulmonary embolus. Prominent mediastinal and bilateral hilar lymph nodes, largest subcarinal measuring 1.3 x 2.2 cm. Small hiatal hernia. Lungs demonstrate diffuse pulmonary emphysema and mild scattered fibrosis/scarring. Medial right upper lobe demonstrates patchy consolidating airspace disease. Left lower lobe demonstrate additional patchy consolidating/nonconsolidating airspace disease. Incidental bilateral dependent atelectasis and a few tiny right lung calcified granulomas. No effusion or pneumothorax. Bony thorax demonstrates osteopenia and mild degenerative changes throughout the spine. Also small T9-T12 Schmorl nodes. CTA abdomen/pelvis reported separately. Impression: 1. Mild scattered arteriosclerotic thoracic aorta. Negative for aneurysm/dissection. 2. Right upper and left lower lobe patchy airspace disease as detailed. 3. Prominent mediastinal and hilar lymph nodes presumed reactive. 4. Chronic findings including pulmonary emphysema, fibrosis/scarring, small hiatal hernia, and chronic bony findings. Comment: Preliminary interpretation made by C. No critical discrepancy.
--- NOTE | 2022-06-24 09:04 | XRAY ---
Indication: Chest and back pain. Nausea. Aortic dissection. Conventional contrast enhanced CTA abdomen and pelvis performed using 100 cc Isovue 370 contrast. Two-dimensional sagittal and coronal reformatted images obtained. Additional 3-dimensional reformatted images obtained using a separate workstation. Comparison: None CTA chest reported separately. Moderate scattered aortoiliac calcifications. Negative for aneurysm/dissection. Normal branching celiac, superior mesenteric, and inferior mesenteric arteries with minimal/mild calcifications at the origin of the celiac and superior mesenteric arteries. No critical stenosis/obstruction or poststenotic dilatation. A single renal artery supplies each kidney. Mild left and minimal right main renal artery arteriosclerotic calcifications without critical stenosis or obstruction. Noncontrasted stomach and bowel loops appear nonobstructed with normal appendix. No free fluid/air. A few splenic calcified granulomas. Right lobe liver demonstrates 1.3 cm and left lobe demonstrates 5 mm cysts versus hemangiomas. Tail of the pancreas demonstrates 1 cm cyst. Remaining liver, gallbladder, pancreas, spleen, adrenal glands, kidneys, ureters, bladder, and uterus are unremarkable. No pathologic retroperitoneal lymphadenopathy. Osseous structures intact with osteopenia, mild multilevel degenerative spondylosis, 3 mm L3 anterolisthesis, and moderate degenerative changes both hips. Impression: 1. Scattered arteriosclerotic disease including great branches and both main renal arteries. Negative for AAA/dissection. 2. Incidental hepatic cysts/hemangiomas, pancreatic cyst, chronic bony findings, and old granulomatous disease. Comment: Preliminary interpretation made by [facility]. No critical discrepancy.
[2022-06-24] MEDS ORDERED: FLUZONE HIGH-DOSE QUAD 2022-23 IM ONE (10:00)
[2022-06-24] MEDS ORDERED: Ventolin Hfa MDI IH PRN (13:04)
[2022-06-24] MEDS ORDERED: VENTOLIN COMMON CANISTER IH PRN (13:07)
[2022-06-24] MEDS: TORAdol 30 mg Injection IV PRN (14:23)
[2022-06-24] MEDS: ROCEPHIN 1 Gm-D5w 50 ml Bag** 1 G/50 ML IVPB IV SCH (22:55)
[2022-06-25] MEDS: Zithromax 500 MG/ 250 ML NaCl Premix 500 MG/250 ML IVPB IV SCH ×2 (00:17→21:48)
[2022-06-25] MEDS: TORAdol 30 mg Injection IV PRN ×2 (00:18→23:32)
[2022-06-25] MEDS: Sodium Chloride 0.9% 1000 ML 1,000 ML IV SCH ×2 (05:07→16:32)
[2022-06-25] MEDS: PROVENTIL 2.5 MG/3 ML NEB IH SCH ×4 (06:54→19:23)
[2022-06-25] MEDS: PATIENT OWN MEDICATION IH SCH (06:55)
--- NOTE | 2022-06-25 08:21 | PCM.HP ---
History of Present Illness - Chief Complaint Chief Complaint: shortness of breath for 1 week History of Present Illness: is a 72 year old female.resents to her ED with her daughter for evaluation of abdominal pain. Patient states she has been experiencing a uma pain with indigestion and nausea for 1 day. Patient occasionally feels a shooting sensation into her chest and shoulder blades. No trauma. No fever. No rash. Symptoms are constant. Symptoms are moderate in intensity. No specific worsening improving factors. Patient voices no other complaints or concerns at this time. - Review of Systems Constitutional: Fatigue, Weakness, No Fever, No Chills Eyes: No Symptoms Ears, Nose, & Throat: No Symptoms Respiratory: Cough, Orthopnea, Short Of Breath, Wheezing Cardiac: No Chest Pain, No Edema, No Syncope Abdominal/Gastrointestinal: No Abdominal Pain, No Nausea, No Vomiting, No Diarrhea Genitourinary Symptoms: No Dysuria Musculoskeletal: No Back Pain, No Neck Pain Skin: No Rash Neurological: No Dizziness, No Focal Weakness, No Sensory Changes Psychological: No Symptoms Endocrine: No Symptoms Hematologic/Lymphatic: No Symptoms Immunological/Allergic: No Symptoms Medications & Allergies Home Medications: Home Medication List Albuterol 2.5 mg/3 ml Neb [Proventil 2.5 mg/3 ml Neb] 2.5 mg IH QID 30 Days #120 neb 01/25/21 [Rx Confirmed 06/23/22] Nebulizer Accessories [Nebulizer] 1 each UD #1 kit 01/25/21 [Rx Confirmed 06/23/22] Albuterol 8 gm Mdi Hfa [Ventolin Hfa MDI] 2 puffs IH Q4-6HPRN PRN 06/23/22 [History Confirmed 06/23/22] Fluticasone/Umeclidin/Vilanter [Trelegy Ellipta 100-62.5-25] 1 puff IH DAILY 06/23/22 [History Confirmed 06/23/22] Allergies/Adverse Reactions: Allergies Allergy/AdvReac Type Severity Reaction Status Date / Time morphine AdvReac Severe Headache Verified 06/07/19 10:49 prednisone AdvReac Severe Verified 06/23/22 21:14 - Past Medical History Past Medical History: Yes Neurological History: No Pertinent History ENT History: Cataracts Cardiac History: No Pertinent History Respiratory History: Bronchitis, COPD, Pneumonia Endocrine Medical History: No Pertinent History Musculoskelatal History: Arthritis GI Medical History: Hernia History: No Pertinent History Pyscho-Social History: Panic Disorder Reproductive Disorders: No Pertinent History - Female History Are you now?: No - Past Surgical History Past Surgical History: Yes Neuro Surgical History: No Pertinent History Cardiac History: No Pertinent History Respiratory Surgery: No Pertinent History GI Surgical History: Appendectomy Genitourinary Surgical Hx: No Pertinent History Musculskeletal Surgical Hx: Orthopedic Surgery Female Surgical History: Section Other Surgical History: hand surg - Social History Smoking Status: Current every day smoker How long have you smoked: 55 years Exposure to second hand smoke: Yes Alcohol: Weekly Drug Use: none - Physical Exam Vital Signs: Vital Signs - 24 hr Temp Pulse Resp BP Pulse Ox 06/25/22 07:20 98.2 F 85 16 133/69 97 06/25/22 06:56 76 20 94 L 06/25/22 04:00 97.1 F 85 18 128/63 93 L 06/25/22 00:00 100.1 F 99 H 17 117/68 93 L 06/24/22 20:00 97.9 F 99 H 18 116/59 98 06/24/22 18:38 100 H 20 92 L 06/24/22 16:00 98.0 F 95 H 16 133/59 95 06/24/22 15:15 95 H 14 93 L 06/24/22 11:35 98.1 F 101 H 16 134/64 101 H 06/24/22 11:03 102 H 20 94 L General Appearance: no apparent distress, alert Neurologic Exam: alert, oriented x 3, cooperative, normal mood/affect, nml cerebellar function, nml station & gait, sensation nml, No motor deficits Eye Exam: PERRL/EOMI, eyes nml inspection Ears, Nose, Throat Exam: normal ENT inspection, TMs normal, pharynx normal, moist mucous membranes Neck Exam: normal inspection, non-tender, supple, full range of motion Respiratory Exam: respiratory distress, diminished breath sounds, accessory muscle use, crackles/rales, rhonchi, wheezing Cardiovascular Exam: regular rate/rhythm, normal heart sounds, normal peripheral pulses Gastrointestinal/Abdomen Exam: soft, normal bowel sounds, No tenderness, No mass Back Exam: normal inspection, normal range of motion, No CVA tenderness, No vertebral tenderness Extremity Exam: normal inspection, normal range of motion, pelvis stable Skin Exam: normal color, warm, dry, No rash Lymphatic Exam: No adenopathy Results - Radiology Impressions Radiology Exams & Impressions: Radiology Procedures Category Date Time Status CTA ABD/PEL W AND/OR W/O CONTR [CT] Stat Exams 06/23/22 22:35 Completed CTA CHEST W AND/OR WO [CT] Stat Exams 06/23/22 22:[address]/CTA ABD/PEL W AND/OR W/O CONTR Indication: Chest and back pain. Nausea. Aortic dissection. Conventional contrast enhanced CTA abdomen and pelvis performed using 100 cc Isovue 370 contrast. Two-dimensional sagittal and coronal reformatted images obtained. Additional 3-dimensional reformatted images obtained using a separate workstation. Comparison: None CTA chest reported separately. Moderate scattered aortoiliac calcifications. Negative for aneurysm/dissection. Normal branching celiac, superior mesenteric, and inferior mesenteric arteries with minimal/mild calcifications at the origin of the celiac and superior mesenteric arteries. No critical stenosis/obstruction or poststenotic dilatation. A single renal artery supplies each kidney. Mild left and minimal right main renal artery arteriosclerotic calcifications without critical stenosis or obstruction. Noncontrasted stomach and bowel loops appear nonobstructed with normal appendix. No free fluid/air. A few splenic calcified granulomas. Right lobe liver demonstrates 1.3 cm and left lobe demonstrates 5 mm cysts versus hemangiomas. Tail of the pancreas demonstrates 1 cm cyst. Remaining liver, gallbladder, pancreas, spleen, adrenal glands, kidneys, ureters, bladder, and uterus are unremarkable. No pathologic retroperitoneal lymphadenopathy. Osseous structures intact with osteopenia, mild multilevel degenerative spondylosis, 3 mm L3 anterolisthesis, and moderate degenerative changes both hips. Impression: 1. Scattered arteriosclerotic disease including great branches and both main renal arteries. Negative for AAA/dissection. 2. Incidental hepatic cysts/hemangiomas, pancreatic cyst, chronic bony findings, and old granulomatous disease. CT/CTA CHEST W AND/OR WO Indication: Chest and back pain. Nausea. Aortic dissection. Conventional contrast enhanced CTA chest performed using 100 cc Isovue 370 contrast. Two-dimensional sagittal and coronal reformatted images obtained. Additional 3-dimensional reformatted images obtained using a separate workstation. Comparison: None Thoracic aorta is mildly atherosclerotic without aneurysm/dissection. Aortic arch demonstrates anatomic variant for bovine arch. Heart not enlarged. No central pulmonary embolus. Prominent mediastinal and bilateral hilar lymph nodes, largest subcarinal measuring 1.3 x 2.2 cm. Small hiatal hernia. Lungs demonstrate diffuse pulmonary emphysema and mild scattered fibrosis/scarring. Medial right upper lobe demonstrates patchy consolidating airspace disease. Left lower lobe demonstrate additional patchy consolidating/nonconsolidating airspace disease. Incidental bilateral dependent atelectasis and a few tiny right lung calcified granulomas. No effusion or pneumothorax. Bony thorax demonstrates osteopenia and mild degenerative changes throughout the spine. Also small T9-T12 Schmorl nodes. CTA abdomen/pelvis reported separately. Impression: 1. Mild scattered arteriosclerotic thoracic aorta. Negative for aneurysm/dissection. 2. Right upper and left lower lobe patchy airspace disease as detailed. 3. Prominent mediastinal and hilar lymph nodes presumed reactive. 4. Chronic findings including pulmonary emphysema, fibrosis/scarring, small hiatal hernia, and chronic bony findings. Assessment/Plan (1) Pneumonia Current Visit: Yes Status: Acute Qualifiers: Pneumonia type: due to Klebsiella pneumoniae Laterality: right Lung location: upper lobe of lung Qualified Code(s): J15.0 - Pneumonia due to Klebsiella pneumoniae Assessment & Plan: Chief Complaint Diagnosis Bilateral pneumonia Allergies Allergy/AdvReac Type Severity Reaction Status Date / Time morphine AdvReac Severe Headache Verified 06/07/19 10:49 prednisone AdvReac Severe Verified 06/23/22 21:14 Vital Signs (Last 24 hours) Temp Pulse Resp BP Pulse Ox 06/25/22 07:20 98.2 F 85 16 133/69 97 06/25/22 06:56 76 20 94 L 06/25/22 04:00 97.1 F 85 18 128/63 93 L 06/25/22 00:00 100.1 F 99 H 17 117/68 93 L 06/24/22 20:00 97.9 F 99 H 18 116/59 98 06/24/22 18:38 100 H 20 92 L 06/24/22 16:00 98.0 F 95 H 16 133/59 95 06/24/22 15:15 95 H 14 93 L 06/24/22 11:35 98.1 F 101 H 16 134/64 101 H 06/24/22 11:03 102 H 20 94 L Home Medications Medication Instructions Recorded Confirmed Last Taken Type Albuterol 8 gm Mdi Hfa 2 puffs IH Q4-6HPRN PRN 06/23/22 06/23/22 06/23/22 20:00 History [Ventolin Hfa MDI] Fluticasone/Umeclidin/Vilanter 1 puff IH DAILY 06/23/22 06/23/22 06/23/22 20:00 History [Paul Ellipta 100-62.5-25] Current Medications Generic Name Dose Route Start Last Admin Trade Name Freq PRN Reason Stop Dose Admin Acetaminophen 650 mg 06/24/22 02:27 Acetaminophen 325 Mg Tablet PO 07/24/22 02:26 Q4H PRN PRN PAIN AND/OR FEVER Albuterol Sulfate 2.5 mg 06/24/22 07:00 06/25/22 06:54 Albuterol Sulfate 2.5 Mg/3 Ml Neb IH 07/24/22 06:59 2.5 mg QIDRT STEFANI Administration Albuterol Sulfate 2 puff 06/24/22 13:07 Albuterol Common Canister Inhaler IH 07/24/22 13:06 Q4H PRN PRN SHORTNESS OF BREATH/WHEEZING Sodium Chloride 1,000 mls @ 100 mls/hr 06/24/22 02:27 06/25/22 05:07 Sodium Chloride 0.9% 1000 Ml IV 07/24/22 02:26 100 mls/hr .Q10H STEFANI Administration Ceftriaxone Sodium/Dextrose 1 g in 50 mls @ 100 mls/hr 06/24/22 22:00 06/24/22 22:55 Rocephin 1 Gm-D5w 50 Ml Bag IV 06/27/22 21:59 100 mls/hr QPM STEFANI Administration Azithromycin 500 mg in 250 mls @ 250 mls/hr 06/24/22 22:00 06/25/22 00:17 Zithromax 500 Mg/ 250 Ml Nacl Premix IV 07/24/22 21:59 250 mls/hr QPM STEFANI Administration Ketorolac Tromethamine 30 mg 06/24/22 02:27 06/25/22 00:18 Ketorolac Tromethamine 30 Mg/Ml Inj IV 06/29/22 02:26 30 mg Q6H PRN PRN Administration PAIN Patient Own Med: 1 each 06/25/22 10:00 06/25/22 06:55 Trelegy Inhaler IH 07/25/22 09:59 1 each DAILY STEFANI Administration Discontinued Medications Generic Name Dose Route Start Last Admin Trade Name Yeyo PREster Reason Stop Dose Admin Sodium Chloride 1,000 mls @ 100 mls/hr 06/23/22 22:00 06/23/22 22:01 Sodium Chloride 0.9% 1000 Ml IV 07/23/22 21:59 100 mls/hr .Q10H STEFANI Administration Azithromycin 500 mg in 250 mls @ 250 mls/hr 06/24/22 00:51 06/24/22 01:56 Zithromax 500 Mg/ 250 Ml Nacl Premix IV 06/24/22 01:50 100 ml/hr STAT STA 100 mls/hr Administration Ceftriaxone Sodium/Dextrose 2 g in 50 mls @ 100 mls/hr 06/24/22 00:52 06/24/22 01:24 Rocephin 2 Gm-D5w 50ml Bag IV 06/24/22 01:21 100 ml/hr STAT STA 100 mls/hr Administration Azithromycin Confirm 06/24/22 01:04 Zithromax 500 Mg/ 250 Ml Nacl Premix Administered 06/24/22 01:05 Dose 500 mg in 250 mls @ ud IV .STK-MED ONE Ceftriaxone Sodium/Dextrose Confirm 06/24/22 01:04 Rocephin 2 Gm-D5w 50ml Bag Administered 06/24/22 01:05 Dose 2 g in 50 mls @ ud IV .STK-MED ONE Sodium Chloride Confirm 06/23/22 21:58 Sodium Chloride 0.9% 1000 Ml Administered 06/23/22 21:59 Dose 1,000 mls @ ud .ROUTE .STK-MED ONE Ketorolac Tromethamine 30 mg 06/23/22 21:53 06/23/22 22:01 Ketorolac Tromethamine 30 Mg/Ml Inj IV 06/23/22 21:54 30 mg STAT ONE Administration Ketorolac Tromethamine Confirm 06/23/22 21:58 Ketorolac Tromethamine 30 Mg/Ml Inj Administered 06/23/22 21:59 Dose 30 mg .ROUTE .STK-MED ONE Intake & Output (Last 24 hours) 06/22/22 06/23/22 06/24/22 06/25/22 11:59 11:59 11:59 11:59 Intake Total 680 4164 Output Total 450 Balance 680 3714 Weight 56 kg Orders (Last 24 hours) Category Date Time Status Albuterol Common Canister [Ventolin Common Canister* Med 06/24/22 13:07 Active ] 2 puff IH Q4H PRN PRN Azithromycin 500 mg/250 ml [Zithromax 500 MG/ 250 ML Med 06/24/22 22:00 Active NaCl Premix] 500 mg in 250 ml IV QPM Ceftriaxone 1 GM/50 ML PREMIX* [ROCEPHIN 1 Gm-D5w 50 ml Med 06/24/22 22:00 Active Bag] 1 g in 50 ml IV QPM Flu Vacc [id number](65Yr Up)/Pf [Fluzone High-Dose Quad Med 06/24/22 10:00 Discontinued ] 240 mcg IM .ONCE ONE Patient Own Med [Patient Own Medication] Med 06/25/22 10:00 Active 1 each IH DAILY Patient Care Notes (Last 24 hours) 06/25/22 01:02 [employer] Note by Sujatha Swan rechecked pts temp and it is 98.8 Initialized on 06/25/22 01:02 - END OF NOTE 06/25/22 00:58 [employer] Note by Sujatha Swan pT has a fever of 100.1 at this time. Initialized on 06/25/22 00:58 - END OF NOTE Code(s): J18.9 - PNEUMONIA, UNSPECIFIED ORGANISM (2) COPD exacerbation Current Visit: Yes Status: Resolved Assessment & Plan: Chief Complaint Diagnosis Bilateral pneumonia Allergies Allergy/AdvReac Type Severity Reaction Status Date / Time morphine AdvReac Severe Headache Verified 06/07/19 10:49 prednisone AdvReac Severe Verified 06/23/22 21:14 Vital Signs (Last 24 hours) Temp Pulse Resp BP Pulse Ox 06/25/22 07:20 98.2 F 85 16 133/69 97 06/25/22 06:56 76 20 94 L 06/25/22 04:00 97.1 F 85 18 128/63 93 L 06/25/22 00:00 100.1 F 99 H 17 117/68 93 L 06/24/22 20:00 97.9 F 99 H 18 116/59 98 06/24/22 18:38 100 H 20 92 L 06/24/22 16:00 98.0 F 95 H 16 133/59 95 06/24/22 15:15 95 H 14 93 L 06/24/22 11:35 98.1 F 101 H 16 134/64 101 H 06/24/22 11:03 102 H 20 94 L Home Medications Medication Instructions Recorded Confirmed Last Taken Type Albuterol 8 gm Mdi Hfa 2 puffs IH Q4-6HPRN PRN 06/23/22 06/23/22 06/23/22 20:00 History [Ventolin Hfa MDI] Fluticasone/Umeclidin/Vilanter 1 puff IH DAILY 06/23/22 06/23/22 06/23/22 20:00 History [Paul Pizano 100-62.5-25] Current Medications Generic Name Dose Route Start Last Admin Trade Name Freq PRN Reason Stop Dose Admin Acetaminophen 650 mg 06/24/22 02:27 Acetaminophen 325 Mg Tablet PO 07/24/22 02:26 Q4H PRN PRN PAIN AND/OR FEVER Albuterol Sulfate 2.5 mg 06/24/22 07:00 06/25/22 06:54 Albuterol Sulfate 2.5 Mg/3 Ml Neb IH 07/24/22 06:59 2.5 mg QIDRT STEFANI Administration Albuterol Sulfate 2 puff 06/24/22 13:07 Albuterol Common Canister Inhaler IH 07/24/22 13:06 Q4H PRN PRN SHORTNESS OF BREATH/WHEEZING Sodium Chloride 1,000 mls @ 100 mls/hr 06/24/22 02:27 06/25/22 05:07 Sodium Chloride 0.9% 1000 Ml IV 07/24/22 02:26 100 mls/hr .Q10H STEFANI Administration Ceftriaxone Sodium/Dextrose 1 g in 50 mls @ 100 mls/hr 06/24/22 22:00 06/24/22 22:55 Rocephin 1 Gm-D5w 50 Ml Bag IV 06/27/22 21:59 100 mls/hr QPM STEFANI Administration Azithromycin 500 mg in 250 mls @ 250 mls/hr 06/24/22 22:00 06/25/22 00:17 Zithromax 500 Mg/ 250 Ml Nacl Premix IV 07/24/22 21:59 250 mls/hr QPM STEFANI Administration Ketorolac Tromethamine 30 mg 06/24/22 02:27 06/25/22 00:18 Ketorolac Tromethamine 30 Mg/Ml Inj IV 06/29/22 02:26 30 mg Q6H PRN PRN Administration PAIN Patient Own Med: 1 each 06/25/22 10:00 06/25/22 06:55 Trelegy Inhaler IH 07/25/22 09:59 1 each DAILY STEFANI Administration Discontinued Medications Generic Name Dose Route Start Last Admin Trade Name Freq PRN Reason Stop Dose Admin Sodium Chloride 1,000 mls @ 100 mls/hr 06/23/22 22:00 06/23/22 22:01 Sodium Chloride 0.9% 1000 Ml IV 07/23/22 21:59 100 mls/hr .Q10H STEFANI Administration Azithromycin 500 mg in 250 mls @ 250 mls/hr 06/24/22 00:51 06/24/22 01:56 Zithromax 500 Mg/ 250 Ml Nacl Premix IV 06/24/22 01:50 100 ml/hr STAT STA 100 mls/hr Administration Ceftriaxone Sodium/Dextrose 2 g in 50 mls @ 100 mls/hr 06/24/22 00:52 06/24/22 01:24 Rocephin 2 Gm-D5w 50ml Bag IV 06/24/22 01:21 100 ml/hr STAT STA 100 mls/hr Administration Azithromycin Confirm 06/24/22 01:04 Zithromax 500 Mg/ 250 Ml Nacl Premix Administered 06/24/22 01:05 Dose 500 mg in 250 mls @ ud IV .STK-MED ONE Ceftriaxone Sodium/Dextrose Confirm 06/24/22 01:04 Rocephin 2 Gm-D5w 50ml Bag Administered 06/24/22 01:05 Dose 2 g in 50 mls @ ud IV .STK-MED ONE Sodium Chloride Confirm 06/23/22 21:58 Sodium Chloride 0.9% 1000 Ml Administered 06/23/22 21:59 Dose 1,000 mls @ ud .ROUTE .STK-MED ONE Ketorolac Tromethamine 30 mg 06/23/22 21:53 06/23/22 22:01 Ketorolac Tromethamine 30 Mg/Ml Inj IV 06/23/22 21:54 30 mg STAT ONE Administration Ketorolac Tromethamine Confirm 06/23/22 21:58 Ketorolac Tromethamine 30 Mg/Ml Inj Administered 06/23/22 21:59 Dose 30 mg .ROUTE .STK-MED ONE Intake & Output (Last 24 hours) 06/22/22 06/23/22 06/24/22 06/25/22 11:59 11:59 11:59 11:59 Intake Total 680 4164 Output Total 450 Balance 680 3714 Weight 56 kg Orders (Last 24 hours) Category Date Time Status Albuterol Common Canister [Ventolin Common Canister* Med 06/24/22 13:07 Active ] 2 puff IH Q4H PRN PRN Azithromycin 500 mg/250 ml [Zithromax 500 MG/ 250 ML Med 06/24/22 22:00 Active NaCl Premix] 500 mg in 250 ml IV QPM Ceftriaxone 1 GM/50 ML PREMIX* [ROCEPHIN 1 Gm-D5w 50 ml Med 06/24/22 22:00 Active Bag] 1 g in 50 ml IV QPM Flu Vacc [id number](65Yr Up)/Pf [Fluzone High-Dose Quad Med 06/24/22 10:00 Discontinued ] 240 mcg IM .ONCE ONE Patient Own Med [Patient Own Medication] Med 06/25/22 10:00 Active 1 each IH DAILY Patient Care Notes (Last 24 hours) 06/25/22 01:02 [employer] Note by Sjuatha Swan rechecked pts temp and it is 98.8 Initialized on 06/25/22 01:02 - END OF NOTE 06/25/22 00:58 [employer] Note by Sujatha Swan pT has a fever of 100.1 at this time. Initialized on 06/25/22 00:58 - END OF NOTE Code(s): J44.1 - CHRONIC OBSTRUCTIVE PULMONARY DISEASE W (ACUTE) EXACERBATION
[2022-06-25] MEDS ORDERED: NON-FORMULARY ITEM (Fluticasone/Umeclidin/Vilanter [Trelegy Ellipta 100-62.5-25] 1 EACH Bl IH SCH (10:00)
[2022-06-25] MEDS: ROCEPHIN 1 Gm-D5w 50 ml Bag** 1 G/50 ML IVPB IV SCH (21:24)
[2022-06-26] MEDS: Sodium Chloride 0.9% 1000 ML 1,000 ML IV SCH (04:58)
[2022-06-26] MEDS: PROVENTIL 2.5 MG/3 ML NEB IH SCH (07:19)
[2022-06-26] MEDS: PATIENT OWN MEDICATION IH SCH (07:21)
[2022-06-26 07:26] VITALS: O2SAT 92
[2022-06-26 07:54] VITALS: BP 146/86; PULSE 83
--- NOTE | 2022-06-26 08:25 | PCM.DS ---
Discharge Summary Date of Admission: 06/24/22 02:26 Admitting Physician: SONIA WILKINS Primary Care Provider: JEREMIAS ANAYA Allergies Allergies morphine Adverse Reaction (Severe, Verified 06/07/19 10:49) Headache prednisone Adverse Reaction (Severe, Verified 06/23/22 21:14) Hospital Summary - Hospital Course Hospital Course: Chief Complaint Diagnosis shortness of breath for 1 week Allergies Allergy/AdvReac Type Severity Reaction Status Date / Time morphine AdvReac Severe Headache Verified 06/07/19 10:49 prednisone AdvReac Severe Verified 06/23/22 21:14 Vital Signs (Last 24 hours) Temp Pulse Resp BP Pulse Ox 06/26/22 07:53 97.0 F 83 19 146/86 92 L 06/26/22 07:23 95 H 20 92 L 06/26/22 04:00 97.3 F 83 18 135/63 90 L 06/25/22 23:37 98.6 F 92 H 20 147/66 91 L 06/25/22 19:48 98.4 F 106 H 18 133/61 92 L 06/25/22 19:25 96 H 20 92 L 06/25/22 16:00 98.6 F 98 H 16 138/62 92 L 06/25/22 15:11 88 20 93 L 06/25/22 12:00 97.5 F 87 16 119/56 92 L 06/25/22 10:51 88 22 93 L Home Medications Medication Instructions Recorded Confirmed Last Taken Type Albuterol 8 gm Mdi Hfa 2 puffs IH Q4-6HPRN PRN 06/23/22 06/23/22 06/23/22 20:00 History [Ventolin Hfa MDI] Fluticasone/Umeclidin/Vilanter 1 puff IH DAILY 06/23/22 06/23/22 06/23/22 20:00 History [Paul Pizano 100-62.5-25] Current Medications Generic Name Dose Route Start Last Admin Trade Name Freq PRN Reason Stop Dose Admin Acetaminophen 650 mg 06/24/22 02:27 06/25/22 23:32 Acetaminophen 325 Mg Tablet PO 07/24/22 02:26 650 mg Q4H PRN PRN Administration PAIN AND/OR FEVER Albuterol Sulfate 2.5 mg 06/24/22 07:00 06/26/22 07:19 Albuterol Sulfate 2.5 Mg/3 Ml Neb 07/24/22 06:59 2.5 mg QIDRT STEFANI Administration Albuterol Sulfate 2 puff 06/24/22 13:07 Albuterol Common Canister Inhaler 07/24/22 13:06 Q4H PRN PRN SHORTNESS OF BREATH/WHEEZING Sodium Chloride 1,000 mls @ 100 mls/hr 06/24/22 02:27 06/26/22 04:58 Sodium Chloride 0.9% 1000 Ml IV 07/24/22 02:26 100 mls/hr .Q10H STEFANI Administration Ceftriaxone Sodium/Dextrose 1 g in 50 mls @ 100 mls/hr 06/24/22 22:00 06/25/22 21:24 Rocephin 1 Gm-D5w 50 Ml Bag IV 06/27/22 21:59 100 mls/hr QPM STEFANI Administration Azithromycin 500 mg in 250 mls @ 250 mls/hr 06/24/22 22:00 06/25/22 21:48 Zithromax 500 Mg/ 250 Ml Nacl Premix IV 07/24/22 21:59 250 mls/hr QPM STEFANI Administration Ketorolac Tromethamine 30 mg 06/24/22 02:27 06/25/22 23:32 Ketorolac Tromethamine 30 Mg/Ml Inj IV 06/29/22 02:26 30 mg Q6H PRN PRN Administration PAIN Patient Own Med: 1 each 06/25/22 10:00 06/26/22 07:21 Trelegy Inhaler 07/25/22 09:59 1 each DAILY STEFANI Administration Discontinued Medications Generic Name Dose Route Start Last Admin Trade Name Freq PRN Reason Stop Dose Admin Sodium Chloride 1,000 mls @ 100 mls/hr 06/23/22 22:00 06/23/22 22:01 Sodium Chloride 0.9% 1000 Ml IV 07/23/22 21:59 100 mls/hr .Q10H STEFANI Administration Azithromycin 500 mg in 250 mls @ 250 mls/hr 06/24/22 00:51 06/24/22 01:56 Zithromax 500 Mg/ 250 Ml Nacl Premix IV 06/24/22 01:50 100 ml/hr STAT STA 100 mls/hr Administration Ceftriaxone Sodium/Dextrose 2 g in 50 mls @ 100 mls/hr 06/24/22 00:52 06/24/22 01:24 Rocephin 2 Gm-D5w 50ml Bag IV 06/24/22 01:21 100 ml/hr STAT STA 100 mls/hr Administration Azithromycin Confirm 06/24/22 01:04 Zithromax 500 Mg/ 250 Ml Nacl Premix Administered 06/24/22 01:05 Dose 500 mg in 250 mls @ ud IV .STK-MED ONE Ceftriaxone Sodium/Dextrose Confirm 06/24/22 01:04 Rocephin 2 Gm-D5w 50ml Bag Administered 06/24/22 01:05 Dose 2 g in 50 mls @ ud IV .STK-MED ONE Sodium Chloride Confirm 06/23/22 21:58 Sodium Chloride 0.9% 1000 Ml Administered 06/23/22 21:59 Dose 1,000 mls @ ud .ROUTE .STK-MED ONE Ketorolac Tromethamine 30 mg 06/23/22 21:53 06/23/22 22:01 Ketorolac Tromethamine 30 Mg/Ml Inj IV 06/23/22 21:54 30 mg STAT ONE Administration Ketorolac Tromethamine Confirm 06/23/22 21:58 Ketorolac Tromethamine 30 Mg/Ml Inj Administered 06/23/22 21:59 Dose 30 mg .ROUTE .STK-MED ONE Intake & Output (Last 24 hours) 06/23/22 06/24/22 06/25/22 06/26/22 11:59 11:59 11:59 11:59 Intake Total 680 4644 3488 Output Total 450 Balance 680 4194 3488 Weight 56 kg Microbiology Results (Last 24 hours) 06/23/22 21:54 Urine, Void Urine Culture - Final <10K NORMAL SKIN FAUSTO PROBABLE SKIN CONTAMINANT 06/24/22 01:20 Blood Blood Culture Gram Stain - Pending 06/24/22 01:20 Blood Blood Culture - Preliminary NO GROWTH TO DATE Orders (Last 24 hours) Category Date Time Status Patient Own Med [Patient Own Medication] Med 06/25/22 10:00 Active 1 each IH DAILY Pulse Oximetry .overnight RT 06/25/22 21:00 Completed Patient Care Notes (Last 24 hours) 06/25/22 13:30 Respiratory Note by Melissa Shah PT'S O2 SAT ON ROOM AIR WHILE AT REST WAS 93%. PT'S O2 SAT WHILE WALKING ON ROOM AIR WAS 90-92%. Initialized on 06/25/22 13:30 - END OF NOTE - Vitals & Intake/Output Vital Signs: Vital Signs Temperature 97.0 F 06/26/22 07:53 Pulse Rate 83 06/26/22 07:53 Respiratory Rate 19 06/26/22 07:53 Blood Pressure 146/86 06/26/22 07:53 O2 Sat by Pulse Oximetry 92 L 06/26/22 07:53 Intake & Output: Intake & Output 06/23/22 06/24/22 06/25/22 06/26/22 11:59 11:59 11:59 11:59 Intake Total 680 4624 3488 Output Total 450 Balance 680 4196 3489 Weight 56 kg - Lab Result Diagrams: 06/24/22 06:24 06/24/22 06:24 Micro Results-Entire Visit: Microbiology 06/23/22 21:54 Urine Culture - Final Urine, Void <10K NORMAL SKIN FAUSTO PROBABLE SKIN CONTAMINANT 06/24/22 01:20 Blood Culture - Preliminary Blood NO GROWTH TO DATE - Procedures and Test Procedures and Tests throughout Hospitalization: Therapy Orders & Screens 06/24/22 03:12 RT Screen per Nursing Assess ONCE Comment: Protocol Order Physician Instructions: Greater than 3 points order RT Admission Screen Reason For Exam: Triggered on Admission Diagnosis: Bilateral pneumonia Diagnosis: Bilateral pneumonia Pneumonia: Yes Home O2: No Asthma: No CHF: No Home CPAP/BIPAP: Yes: doesnt use Home Nebs/MDI: Yes Total Points: 13 Smoking Cessation Education ONCE Comment: Diagnosis: Bilateral pneumonia Smoking Status: Current every day smoker How long have you smoked: 55 years Have you smoked in the past 12 months: Yes Approximately how many cigarettes per day: 1-2 packs per day Do you dip or chew tobacco: No 06/24/22 06:05 Respiratory Therapy Assessment DAILY Comment: Diagnosis: Bilateral pneumonia Discharge Exam General Appearance: no apparent distress, alert Neurologic Exam: alert, oriented x 3, cooperative, normal mood/affect, nml cerebellar function, sensation nml, No motor deficits Eye Exam: PERRL, EOMI, eyes nml inspection Ears, Nose, Throat Exam: normal ENT inspection, pharynx normal, moist mucous membranes Neck Exam: normal inspection, non-tender, supple, full range of motion Respiratory Exam: diminished breath sounds, No respiratory distress Cardiovascular Exam: regular rate/rhythm, normal heart sounds Gastrointestinal/Abdomen Exam: soft, No tenderness, No mass Pelvic Exam: deferred Rectal Exam: deferred Back Exam: normal inspection, normal range of motion, No CVA tenderness, No vertebral tenderness Extremity Exam: normal inspection, normal range of motion Skin Exam: normal color, warm, dry Final Diagnosis/Problem List - Final Discharge Diagnosis/Problem (1) COPD exacerbation Current Visit: Yes Status: Resolved Assessment & Plan: Last Vital Signs Temp 97.0 F 06/26/22 07:53 Pulse 83 06/26/22 07:53 Resp 19 06/26/22 07:53 BP 146/86 06/26/22 07:53 Pulse Ox 92 L 06/26/22 07:53 Allergies morphine Adverse Reaction (Severe, Verified 06/07/19 10:49) Headache prednisone Adverse Reaction (Severe, Verified 06/23/22 21:14) Active Medications Acetaminophen (Acetaminophen 325 Mg Tablet) 650 mg PO Q4H PRN PRN PRN Reason: PAIN AND/OR FEVER Stop: 07/24/22 02:26 Last Admin: 06/25/22 23:32 Dose: 650 mg Albuterol Sulfate (Albuterol Sulfate 2.5 Mg/3 Ml Neb) 2.5 mg IH QIDRT [facility] Stop: 07/24/22 06:59 Last Admin: 06/26/22 07:19 Dose: 2.5 mg Albuterol Sulfate (Albuterol Common Canister Inhaler) 2 puff IH Q4H PRN PRN PRN Reason: SHORTNESS OF BREATH/WHEEZING Stop: 07/24/22 13:06 Sodium Chloride (Sodium Chloride 0.9% 1000 Ml) 1,000 mls @ 100 mls/hr IV .Q10H [facility] Stop: 07/24/22 02:26 Last Admin: 06/26/22 04:58 Dose: 100 mls/hr Ceftriaxone Sodium/Dextrose (Rocephin 1 Gm-D5w 50 Ml Bag) 1 g in 50 mls @ 100 mls/hr IV QPM STEFANI Stop: 06/27/22 21:59 Last Admin: 06/25/22 21:24 Dose: 100 mls/hr Azithromycin (Zithromax 500 Mg/ 250 Ml Nacl Premix) 500 mg in 250 mls @ 250 mls/hr IV QPM STEFANI Stop: 07/24/22 21:59 Last Admin: 06/25/22 21:48 Dose: 250 mls/hr Ketorolac Tromethamine (Ketorolac Tromethamine 30 Mg/Ml Inj) 30 mg IV Q6H PRN PRN PRN Reason: PAIN Stop: 06/29/22 02:26 Last Admin: 06/25/22 23:32 Dose: 30 mg Patient Own Med: (Trelegy Inhaler) 1 each IH DAILY STEFANI Stop: 07/25/22 09:59 Last Admin: 06/26/22 07:21 Dose: 1 each Intake & Output 06/25/22 06/26/22 11:59 11:59 Intake Total 4644 3488 Output Total 450 Balance 4194 3488 Orders 06/25/22 10:00 Patient Own Med [Patient Own Medication] 1 each IH DAILY Microbiology 06/23/22 21:54 Urine, Void Urine Culture - Final <10K NORMAL SKIN FAUSTO PROBABLE SKIN CONTAMINANT 06/24/22 01:20 Blood Blood Culture - Preliminary NO GROWTH TO DATE Code(s): J44.1 - CHRONIC OBSTRUCTIVE PULMONARY DISEASE W (ACUTE) EXACERBATION (2) Pneumonia Current Visit: Yes Status: Acute Assessment & Plan: Chief Complaint Diagnosis shortness of breath for 1 week Allergies Allergy/AdvReac Type Severity Reaction Status Date / Time morphine AdvReac Severe Headache Verified 06/07/19 10:49 prednisone AdvReac Severe Verified 06/23/22 21:14 Vital Signs (Last 24 hours) Temp Pulse Resp BP Pulse Ox 06/26/22 07:53 97.0 F 83 19 146/86 92 L 06/26/22 07:23 95 H 20 92 L 06/26/22 04:00 97.3 F 83 18 135/63 90 L 06/25/22 23:37 98.6 F 92 H 20 147/66 91 L 06/25/22 19:48 98.4 F 106 H 18 133/61 92 L 06/25/22 19:25 96 H 20 92 L 06/25/22 16:00 98.6 F 98 H 16 138/62 92 L 06/25/22 15:11 88 20 93 L 06/25/22 12:00 97.5 F 87 16 119/56 92 L 06/25/22 10:51 88 22 93 L Home Medications Medication Instructions Recorded Confirmed Last Taken Type Albuterol 8 gm Mdi Hfa 2 puffs IH Q4-6HPRN PRN 06/23/22 06/23/22 06/23/22 20:00 History [Ventolin Hfa MDI] Fluticasone/Umeclidin/Vilanter 1 puff IH DAILY 06/23/22 06/23/22 06/23/22 20:00 History [Paul Ellipta 100-62.5-25] Current Medications Generic Name Dose Route Start Last Admin Trade Name Freq PRN Reason Stop Dose Admin Acetaminophen 650 mg 06/24/22 02:27 06/25/22 23:32 Acetaminophen 325 Mg Tablet PO 07/24/22 02:26 650 mg Q4H PRN PRN Administration PAIN AND/OR FEVER Albuterol Sulfate 2.5 mg 06/24/22 07:00 06/26/22 07:19 Albuterol Sulfate 2.5 Mg/3 Ml Neb IH 07/24/22 06:59 2.5 mg QIDRT STEFANI Administration Albuterol Sulfate 2 puff 06/24/22 13:07 Albuterol Common Canister Inhaler IH 07/24/22 13:06 Q4H PRN PRN SHORTNESS OF BREATH/WHEEZING Sodium Chloride 1,000 mls @ 100 mls/hr 06/24/22 02:27 06/26/22 04:58 Sodium Chloride 0.9% 1000 Ml IV 07/24/22 02:26 100 mls/hr .Q10H STEFANI Administration Ceftriaxone Sodium/Dextrose 1 g in 50 mls @ 100 mls/hr 06/24/22 22:00 06/25/22 21:24 Rocephin 1 Gm-D5w 50 Ml Bag IV 06/27/22 21:59 100 mls/hr QPM STEFANI Administration Azithromycin 500 mg in 250 mls @ 250 mls/hr 06/24/22 22:00 06/25/22 21:48 Zithromax 500 Mg/ 250 Ml Nacl Premix IV 07/24/22 21:59 250 mls/hr QPM STEFANI Administration Ketorolac Tromethamine 30 mg 06/24/22 02:27 06/25/22 23:32 Ketorolac Tromethamine 30 Mg/Ml Inj IV 06/29/22 02:26 30 mg Q6H PRN PRN Administration PAIN Patient Own Med: 1 each 06/25/22 10:00 06/26/22 07:21 Trelegy Inhaler 07/25/22 09:59 1 each DAILY STEFANI Administration Discontinued Medications Generic Name Dose Route Start Last Admin Trade Name Freq PRN Reason Stop Dose Admin Sodium Chloride 1,000 mls @ 100 mls/hr 06/23/22 22:00 06/23/22 22:01 Sodium Chloride 0.9% 1000 Ml IV 07/23/22 21:59 100 mls/hr .Q10H TSEFANI Administration Azithromycin 500 mg in 250 mls @ 250 mls/hr 06/24/22 00:51 06/24/22 01:56 Zithromax 500 Mg/ 250 Ml Nacl Premix IV 06/24/22 01:50 100 ml/hr STAT STA 100 mls/hr Administration Ceftriaxone Sodium/Dextrose 2 g in 50 mls @ 100 mls/hr 06/24/22 00:52 06/24 01:24 Rocephin 2 Gm-D5w 50ml Bag IV 06/24/22 01:21 100 ml/hr STAT STA 100 mls/hr Administration Azithromycin Confirm 06/24/22 01:04 Zithromax 500 Mg/ 250 Ml Nacl Premix Administered 06/24/22 01:05 Dose 500 mg in 250 mls @ ud IV .STK-MED ONE Ceftriaxone Sodium/Dextrose Confirm 06/24/22 01:04 Rocephin 2 Gm-D5w 50ml Bag Administered 06/24/22 01:05 Dose 2 g in 50 mls @ ud IV .STK-MED ONE Sodium Chloride Confirm 06/23/22 21:58 Sodium Chloride 0.9% 1000 Ml Administered 06/23/22 21:59 Dose 1,000 mls @ ud .ROUTE .STK-MED ONE Ketorolac Tromethamine 30 mg 06/23/22 21:53 06/23/22 22:01 Ketorolac Tromethamine 30 Mg/Ml Inj IV 06/23/22 21:54 30 mg STAT ONE Administration Ketorolac Tromethamine Confirm 06/23/22 21:58 Ketorolac Tromethamine 30 Mg/Ml Inj Administered 06/23/22 21:59 Dose 30 mg .ROUTE .STK-MED ONE Intake & Output (Last 24 hours) 06/23/22 06/24/22 06/25/22 06/26/22 11:59 11:59 11:59 11:59 Intake Total 680 4644 3488 Output Total 450 Balance 680 4194 3488 Weight 56 kg Microbiology Results (Last 24 hours) 06/23/22 21:54 Urine, Void Urine Culture - Final <10K NORMAL SKIN FAUSTO PROBABLE SKIN CONTAMINANT 06/24/22 01:20 Blood Blood Culture Gram Stain - Pending 06/24/22 01:20 Blood Blood Culture - Preliminary NO GROWTH TO DATE Orders (Last 24 hours) Category Date Time Status Patient Own Med [Patient Own Medication] Med 06/25/22 10:00 Active 1 each IH DAILY Pulse Oximetry .overnight RT 06/25/22 21:00 Completed Patient Care Notes (Last 24 hours) 06/25/22 13:30 Respiratory Note by Melissa Shah PT'S O2 SAT ON ROOM AIR WHILE AT REST WAS 93%. PT'S O2 SAT WHILE WALKING ON ROOM AIR WAS 90-92%. Initialized on 06/25/22 13:30 - END OF NOTE Code(s): J18.9 - PNEUMONIA, UNSPECIFIED ORGANISM - Discharge Discharge Date: 06/26/22 Disposition: Home, Self-Care Condition: Stable Prescriptions: New Cephalexin Mh 500 mg [Keflex 500 mg] 500 mg PO TID 7 Days #21 cap Continue Albuterol 2.5 mg/3 ml Neb [Proventil 2.5 mg/3 ml Neb] 2.5 mg IH QID 30 Days #120 neb Nebulizer Accessories [Nebulizer] 1 each UD #1 kit Fluticasone/Umeclidin/Vilanter [Trelegy Ellipta 100-62.5-25] 1 puff IH DAILY Albuterol 8 gm Mdi Hfa [Ventolin Hfa MDI] 2 puffs IH Q4-6HPRN PRN PRN Reason: Shortness Of Breath Instructions: Chronic Obstructive Pulmonary Disease (COPD), Including Emphysema, Smoking: Not Just Harmful to Your Lungs and Heart, Quitting Smoking for Older Adults Additional Instructions: Discharge/Care Plan ROBINA GROSS was seen on 06/26/22 in the hospital. The patient was counseled regarding Diagnosis,Lab results, Imaging studies, need for follow up and when to return to the Emergency Room. Prescriptions given: Discharge Note I have spoken with the patient and/or caregivers. I have explained the patient's condition, diagnosis and treatment plan based on the information available to me at this time. I have answered the patient's and/or caregiver's questions and addressed any concerns. The patient and/or caregivers have as good understanding of the patient's diagnosis, condition and treatment plan as can be expected at this point. The vital signs have been stable. The patient's condition is stable and appropriate for discharge from the emergency department. The patient will pursue further outpatient evaluation with the primary care physician or other designated or consulting physician as outlined in the discharge instructions. The patient and/or caregivers are agreeable to this plan of care and follow-up instructions have been explained in detail. The patient and/or caregivers have received these instruction. The patient/and or caregivers are aware that any significant change in condition or worsening of symptoms should prompt an immediate return to this or the closest emergency department or call 911. Follow up with: JEREMIAS ANAYA MD [Primary Care Provider] - 7 Days
== END 2022-06-26 11:25 | disposition home or self-care (01) ==
LOC: ED 20:38 → MED SURG 06-24 02:26
PROVIDERS: ADMIT Family Medicine; ATTEND General Practice
DX: J44.1 Chronic obstructive pulmonary disease with (acute) exacerbation (principal); J18.9 Pneumonia, unspecified organism; R07.9 Chest pain, unspecified; R10.9 Unspecified abdominal pain; Z79.899 Other long term (current) drug therapy; Z20.828 Contact with and (suspected) exposure to other viral communicable diseases; Z72.0 Tobacco use
CPT/HCPCS: 0241U; 36000; 36415; 71275; 74174; 80053; 81015; 83605; 83690; 83880; 84145; 84484; 85025; 85379; 87040; 87086; 93005; 93041; 94640; 94760; 94762; 96374; 99285; G0008; 90662; 93268; G0378; J0456; J0696; J1885; J7609; A9270-GY

== ENCOUNTER 2022-07-19 22:43 | Emergency (ER) | payer MEDICARE ==
[2022-07-19] MEDS ORDERED: XYLOCAINE 1% HCL 20 ML MDV IJ ONE (22:44)
--- NOTE | 2022-07-19 23:11 | ERPHSYRPT ---
- History of Present Illness Time Seen by Provider: 07/19/22 23:11 Source: patient Exam Limitations: no limitations Physician History: This is a 72-year-old white female patient of Dr. Anaya who presents to the emergency department with 3-day history of new onset of nonproductive, dry cough with associated right chest pain with coughing. She has a history of COPD, bronchitis and recurrent pneumonia. Patient does use oxygen at home via nasal cannula but did not bring it with her today. Her room air oxygenation level in the emergency department is 98%. Patient states that she completed antibiotics a month ago for diagnosis of pneumonia. This feels the same to her. Patient states that she has problems using prednisone but has used hydrocodone in the past. Patient has no anterior chest pain. She has no complaints of fever. There is no complaints of vomiting or diarrhea. There is been no complaints of abdominal pain. Timing/Duration: day(s) (3) Cough Quality/Degree: mild, dry cough Possible Cause: occasional episodes Modifying Factors: Improves With: coughing Associated Symptoms: cough Allergies/Adverse Reactions: morphine Adverse Reaction (Severe, Verified 07/19/22 23:20) Headache prednisone Adverse Reaction (Severe, Verified 07/19/22 23:20) Home Medications: Albuterol 8 gm Mdi Hfa [Ventolin Hfa MDI] 2 puffs IH Q4-6HPRN PRN 06/23/22 [History] Fluticasone/Umeclidin/Vilanter [Trelegy Ellipta 100-62.5-25] 1 puff IH DAILY 06/23/22 [History] Hx Tetanus, Diphtheria Vaccination/Date Given: No Hx Influenza Vaccination/Date Given: No Hx Pneumococcal Vaccination/Date Given: No Travel Risk - International Travel Have you traveled outside of the country in past 3 weeks: No - Coronavirus Screening Are you exhibiting any of the following symptoms?: Yes Symptoms: Cough: New Onset Close contact with a COVID-19 positive Pt in past 14-21 Days: No - Vaccine Status Have you recieved a Covid-19 vaccination: Yes Circle Shear Operator: Moderna - Vaccination Dates Date of 2cond Vaccination (if applicable): unk Comment: dates unknown - Review of Systems Constitutional: No Symptoms Eyes: No Symptoms Ears, Nose, & Throat: No Symptoms Respiratory: Cough Cardiac: No Symptoms Abdominal/Gastrointestinal: No Symptoms Genitourinary Symptoms: No Symptoms Musculoskeletal: No Symptoms Skin: No Symptoms Neurological: No Symptoms Psychological: No Symptoms Endocrine: No Symptoms Hematologic/Lymphatic: No Symptoms Immunological/Allergic: No Symptoms All Other Systems: Reviewed and Negative - Past Medical History Pertinent Past Medical History: Yes Neurological History: No Pertinent History ENT History: Cataracts Cardiac History: No Pertinent History Respiratory History: Bronchitis, COPD, Pneumonia Endocrine Medical History: No Pertinent History Musculoskeletal History: Arthritis GI Medical History: Hernia History: No Pertinent History Psycho-Social History: Panic Disorder Female Reproductive Disorders: No Pertinent History - Past Surgical History Past Surgical History: Yes Neuro Surgical History: No Pertinent History Cardiac: No Pertinent History Respiratory: No Pertinent History Gastrointestinal: Appendectomy Genitourinary: No Pertinent History Musculoskeletal: Orthopedic Surgery Female Surgical History: Section Other Surgical History: hand surg - Social History Smoking Status: Current every day smoker How long have you smoked: 55 years Exposure to second hand smoke: Yes Drug Use: none Patient Lives Alone: No - Nursing Vital Signs Nursing Vital Signs: Initial Vital Signs Temperature 98.6 F 07/19/22 22:59 Pulse Rate 110 H 07/19/22 22:59 Respiratory Rate 20 07/19/22 22:59 Blood Pressure 129/69 07/19/22 22:59 O2 Sat by Pulse Oximetry 89 L 07/19/22 22:59 Pain Scale Pain Intensity 9 - Physical Exam General Appearance: no apparent distress, alert, anxiety Eye Exam: PERRL/EOMI, eyes nml inspection Ears, Nose, Throat Exam: normal ENT inspection, moist mucous membranes Neck Exam: normal inspection, non-tender, supple, full range of motion Respiratory Exam: normal breath sounds, lungs clear, airway intact, No chest tenderness, No respiratory distress Cardiovascular Exam: tachycardia Gastrointestinal/Abdomen Exam: soft, normal bowel sounds, No tenderness Pelvic Exam: not done Rectal Exam: not done Back Exam: normal inspection, normal range of motion, No CVA tenderness Extremity Exam: normal inspection, normal range of motion, pelvis stable Neurologic Exam: alert, oriented x 3, cooperative, neighborhood conservation officer II-XII nml as tested, normal mood/affect, nml cerebellar function, nml station & gait, sensation nml Skin Exam: normal color, warm, dry Lymphatic Exam: No adenopathy SpO2 Interpretation: normal O2 Delivery: Room Air - Course Nursing assessment & vital signs reviewed: Yes Ordered Tests: Active Orders 24 hr Category Date Time Status CHEST 1 VIEW (PORTABLE) Stat Exams 07/19/22 23:20 Taken Medication Summary Discontinued Medications Generic Name Dose Route Start Last Admin Trade Name Yeyo PRN Reason Stop Dose Admin Oseltamivir Phosphate 75 mg 07/20/22 00:27 Oseltamivir 75 Mg Cap PO 07/20/22 00:28 STAT ONE Lab/Rad Data: Laboratory Results 07/19/22 Range/Units 23:29 Influenza Type A Ag POSITIVE (NEGATIVE) Influenza Type B Ag NEGATIVE (NEGATIVE) RSV (PCR) NEGATIVE (Negative) SARS-CoV-2 (PCR) NEGATIVE (NEGATIVE) - Progress Progress: improved, re-examined Air Movement: good Progress Note: 07/20/22 00:10 Chest x-ray shows chronic bilateral emphysematous changes. Question of right lower lobe/basilar infiltrate versus atelectasis Counseled pt/family regarding: lab results, diagnosis, need for follow-up, rad results - Departure Departure Disposition: Home Clinical Impression: Pulmonary infiltrate on chest x-ray, Influenza A H1N1 infection Condition: Stable Critical Care Time: No Referrals: JEREMIAS ANAYA MD [Primary Care Provider] - Follow up/PCP as directed Additional Instructions: Drink plenty of fluids. Stay clear of any type of smoke. Take your antibiotics as prescribed. Follow-up with your primary care provider for further evaluation management. Prescriptions: Hydrocodone/Acetaminophen [Hydrocodone-Acetamn 7.5-325/15] 10 ml PO Q8H PRN PRN #120 ml MDD 30 ml PRN Reason: Cough Oseltamivir 75 mg [Tamiflu 75MG Capsule] 75 mg PO BID #10 cap Azithromycin 250 mg [Zithromax 250 MG TABLET] 250 mg PO ZPACK #6 tablet
[2022-07-19 23:20] VITALS: BP 129/69; PULSE 110; O2SAT 99
[2022-07-20 00:09] LABS: INFLUENZA B NEGATIVE (NEGATIVE); RESPIRATORY SYNCTIAL VIRUS NEGATIVE (Negative); SARS-CoV-2 Xpert Express NEGATIVE (NEGATIVE)
[2022-07-20 00:18] LABS: INFLUENZA A POSITIVE (NEGATIVE)
[2022-07-20] MEDS ORDERED: Tamiflu 75MG Capsule PO ONE ×2 (00:27→01:09)
[2022-07-20] MEDS ORDERED: Rocephin 1000 MG INJ IM ONE (01:13)
[2022-07-20] MEDS ORDERED: HYDROCODONE-ACETAMIN 2.5-108/5 ML SOLUTION PO STA (01:14)
[2022-07-20] MEDS ORDERED: Rocephin 1000 MG INJ ONE (01:17)
[2022-07-20] MEDS ORDERED: HYDROCODONE-ACETAMIN 2.5-108/5 ML SOLUTION ONE (01:17)
--- NOTE | 2022-07-20 09:03 | XRAY ---
Indication: Cough. Pneumonia. Comparison: March 16, 2022 Portable chest again hyperinflated with a few tiny right lung calcified granulomas. Both costophrenic angles not completely included. Remaining heart and visualized lungs unremarkable. Bony thorax intact again with mild osteopenia and degenerative changes. Impression: Nonacute hyperinflated limited chest with chronic features.
== END 2022-07-20 01:29 | disposition home or self-care (01) ==
LOC: ED 22:43
DX: J10.1 Influenza due to other identified influenza virus with other respiratory manifestations (principal); R91.8 Other nonspecific abnormal finding of lung field; R05.1 Acute cough; J44.9 Chronic obstructive pulmonary disease, unspecified; Z79.891 Long term (current) use of opiate analgesic; Z79.899 Other long term (current) drug therapy; Z72.0 Tobacco use
CPT/HCPCS: 0241U; 71045; 96372; 99283; J0696; A9270-GY